=== PATIENT | female | born 1955 | race Caucasian/White ===

== ENCOUNTER → 2017-01-09 | Day surgery (SDC) | payer OTHER ==
[2016-12-31 13:38] VITALS: Ht 158.8 cm; Wt 82.7 kg
[2017-01-02 10:36] LABS: BASO % 0.2 %; BASO ABS # 0.01 K/uL (0-0.2); COMPLETE YES; EOS % 0.9 %; HEMATOCRIT 44.6 % (37-47); IG% 0.2 %; LYMPH % 32.6 %; LYMPH ABS # 1.83 K/uL (1.2-3.4); MEAN CELL VOLUME 90.5 fL (80-100); MEAN CORPUSCULAR HEMOGLOBIN 29.8 pg (25-34); MEAN PLATELET VOLUME 11.2 fL (7.4-10.4); NEUT % 60.1 %; PLATELET COUNT 234 K/uL (130-400); RED BLOOD COUNT 4.93 M/uL (4.2-5.4); WHITE BLOOD COUNT 5.62 K/uL (4.8-10.8)
[2017-01-02 11:00] LABS: BUN/CREATININE RATIO 16.5 (10-20); CALCIUM 9.1 mg/dl (8.5-10.1); CREATININE 0.66 mg/dl (0.60-1.20); POTASSIUM 4.1 mmol/L (3.5-5.1)
[~2017-01-09] VITALS: Ht 158.8 cm; Wt 82.7 kg
[~2017-01-09] MED LIST: ATROPINE SULFATE 0.1 MG/ML 5ML SYR IV PRN; CEFAZOLIN 2000 MG/60 ML D5W IV SCH; DICL-201 PO; EpHEDrine SULFATE INJ 50 MG/ML AMP IV PRN; EpINEphrine INJ 1MG/ML AMP 1 MG/ML AMP ONE; HYDR-5688 PO; HYDROCODONE/ACETAMOPHEN 5/325MG TAB PO PRN; KETOROLAC TROMETHAMINE 30 MG/ML VIAL ONE; LACTATED RINGER'S 1000ML 1,000 ML IV SCH; LEVO25TA5 PO; ONDANSETRON INJ 2 MG/ML 2 ML VIAL IV PRN; ROPIVACAINE 0.5% 5 MG/ML 30 ML VIAL ONE; SODIUM CHLORIDE 0.9% 1000ML 1,000 ML IV SCH; TRAM-10 PO; ZOLP5TAB PO
--- NOTE | 2017-01-09 06:56 | History & Physical Bridge - [place] ---
H&P Re-Evaluation Bridge Note: I have examined the patient, reviewed the History & Physical and in the interval since the performance of the History & Physical I have noted the following changes of clinical significance: No changes noted
--- NOTE | 2017-01-09 08:37 | Discharge Instructions-SurgCtr ---
Discharge Instructions Visit Reason for Visit: Right Knee Pain, Tear Of Lateral Meniscus Of Knee Discharge Discharge Diagnosis / Problem: right knee lateral meniscus tear Discharge Goals Goal(s): Decrease discomfort, Therapeutic intervention Activity Recommendations Activity Limitations: per Instructions/Follow-up section Weightbearing Status: Right weightbearing (as tolerated) Anesthesia . Post Anesthesia Instructions: If you have had General Anesthesia or IV Sedation: * Do not drive today. * Resume driving when surgeon permits. * Do not make important decisions or sign legal documents today. * Call surgeon for: 1. Temperature elevations greater than 101 degrees F. 2. Uncontrollable pain. 3. Excessive bleeding. 4. Persistent nausea and vomiting. 5. Medication intolerance (nausea, vomiting or rash). * For nausea and vomiting use only clear liquids such as: tea, soda, bouillon until nausea subsides, then gradually increase diet as tolerated. * If you have any concerns or questions, call your surgeon's office. If physician is unavailable and it is an emergency, call 911 or go to the nearest emergency room. . Instructions / Follow-Up Instructions / Follow-Up MEDICATIONS: * Resume previous medications unless instructed otherwise by your surgeon. * Always take pain medication on a full stomach or with food to avoid upset stomach. * Do not drink alcohol or drive while taking narcotics. * Ibuprofen or Tylenol may be taken if narcotic not needed. SPECIAL CARE INSTRUCTIONS: __ None _x_ Keep extremity elevated and iced x 48 hours; apply ice 20-30 minutes 8-10 times/day. May remove at night. __ Crutches __ May discard when able __ Brace/Post-op shoe __ 24 hrs/day __ Remove at night _x_ Dressing __ Maintain until seen in office, may shower with plastic over site _x_ Remove dressings in 48 hours and then may shower _x_ Cover incisions with band-aids after showering __ Do not remove steri-strips Call physician if chills or temperature rises above 102 degrees or pain unrelieved by prescribed pain medications. Office [phone] follow up in 2 weeks Diet Recommendations Home Diet: resume previous diet Procedures Procedures Performed: Right Knee Arthroscopy, Partial Lateral Meniscectomy, Chondroplasty Pending Studies Studies pending at discharge: no Medical Emergencies . Who to Call and When: Medical Emergencies: If at any time you feel your situation is an emergency, please call 911 immediately. . Non-Emergent Contact Non-Emergency issues call your: Primary Care Provider, Surgeon . . "Provider Documentation" section prepared by Elton Patel.
[2017-01-09] MEDS: FENTANYL CITRATE INJ 50 MCG/1 ML 2 ML VIAL ONE ×2 (08:49→08:51)
[2017-01-09] MEDS: FENTANYL CITRATE INJ 50 MCG/1 ML 2 ML VIAL IV PRN ×4 (08:51→09:06)
--- NOTE | 2017-01-09 09:07 | OPERATIVE REPORT ---
DATE OF OPERATION: 01/09/2017 PREOPERATIVE DIAGNOSIS: Lateral meniscal tear of the right knee. 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 PROCEDURE: Right knee diagnostic arthroscopy with partial lateral meniscectomy and chondroplasty. SURGEON: Dr. Eladio Santamaria. PRINT LINE OPERATOR: Arian Patel PA-C, whose assistance was necessary for positioning the leg and helping with instrumentation. ANESTHESIA: General. COMPLICATIONS: None. CONDITION: Stable to PACU. INDICATIONS: Andrade is a pleasant 61-year-old female who presented to my office with significant right knee pain. All of her pain was located laterally. MRI and clinical examination were diagnostic for lateral meniscal tear. After failing conservative treatment, she elected to undergo arthroscopy. OPERATION AND FINDINGS: On 01/09/2017 she arrived at [facility] for the above procedure. She was seen in the preoperative holding area and the operative extremity was identified and signed. She was given a preoperative antibiotic, taken back to the operating room, laid on the table in supine position and put under general anesthesia. The right knee was then prepped and draped in sterile fashion. Time-out was done and the patient and operative extremity was properly identified. A scope was introduced in the lateral parapatellar portal. Diagnostic arthroscopy showed grade 3 chondral changes within the patellofemoral joint. The scope was brought into the medial compartment. A medial parapatellar portal was made under direct visualization. There was no cartilage damage to the medial compartment. The medial meniscus was intact. The scope was brought into the trochlea. The ACL was intact. The scope was brought into the lateral compartment. There was no arthritic changes, but there was tearing of the mid portion of the lateral meniscus. A shaver was used to remove the unstable portions of the meniscus and taken back to stable margins. The knee was then brought into full extension. A chondroplasty was done of the patellofemoral joint. Multiple pictures were taken. The scope was placed in the contralateral portal and a repeat diagnostic arthroscopy showed no additional pathology. Arthroscopic instruments were removed from the knee. Portal sites were closed with 3-0 nylon. The knee was injected with 30 mL of Neuropen with epinephrine and Toradol. She was then given a soft compressive dressing, extubated, transferred to a litter and taken to the postanesthesia care unit in stable condition. She tolerated the procedure well. I attest to the content of the Intraoperative Record and any orders documented therein. Any exceptio ns are noted below.
[2017-01-09 09:22] VITALS: TEMP 36.8
[2017-01-09 09:55] VITALS: BP 127/80; PULSE 95; O2SAT 94
--- NOTE | 2017-01-09 09:58 | Anesthesia Progress Nt - [facility] ---
Anesthesia Post Op Note Date & Time Jan 09, 2017 at 09:58 Vital Signs Pain Intensity: 4 Vital Signs Past 12 Hours Date Time Temp Pulse Resp B/P Pulse Ox O2 Delivery O2 Flow Rate FiO2 01/09/17 09:22 36.8 91 16 135/79 95 Room Air 01/09/17 09:14 88 12 01/09/17 09:14 89 12 94 01/09/17 09:14 88 12 01/09/17 09:14 89 12 94 01/09/17 09:13 118/61 01/09/17 09:12 37.5 88 16 118/61 94 Room Air 01/09/17 09:11 90 17 01/09/17 09:11 91 17 95 01/09/17 09:08 119/65 01/09/17 09:06 86 16 01/09/17 09:06 87 16 100 01/09/17 09:03 120/66 01/09/17 09:01 90 16 01/09/17 09:01 89 16 99 01/09/17 08:58 121/67 01/09/17 08:56 86 14 99 01/09/17 08:56 86 14 01/09/17 08:53 123/72 01/09/17 08:51 88 23 01/09/17 08:51 88 23 99 01/09/17 08:48 130/67 01/09/17 08:46 84 18 100 01/09/17 08:46 85 18 01/09/17 08:43 122/60 01/09/17 08:41 83 28 01/09/17 08:41 84 28 99 01/09/17 08:39 128/62 01/09/17 08:36 78 12 100 01/09/17 08:36 76 12 01/09/17 08:36 37.2 83 16 113/69 99 Diffusion Mask 6 01/09/17 07:17 36.7 89 16 139/105 96 Room Air Notes Mental Status: alert / awake / arousable, participated in evaluation Pt Amnestic to Procedure: Yes Nausea / Vomiting: adequately controlled Pain: adequately controlled Airway Patency, RR, SpO2: stable & adequate BP & HR: stable & adequate Hydration State: stable & adequate Anesthetic Complications: no major complications apparent
--- NOTE | 2017-01-09 10:29 | [facility] Post Operative Brief Note ---
Immediate Operative Summary Operative Date Jan 09, 2017. Pre-Operative Diagnosis Right Knee Lateral Meniscus Tear Post-Operative Diagnosis Same Procedure(s) Performed Right Knee Arthroscopy, Partial Lateral Meniscectomy, Chondroplasty Surgeon Dr. Santamaria Senior Electronics Technician Surgeon(s) Gail Patel PA-C Estimated Blood Loss 0 mL Findings as above Specimens None Complication(s) None Disposition Recovery Room / PACU
== END | disposition home or self-care (01) ==
LOC: X.SURG 06:52
PROVIDERS: ATTEND Orthopaedic Surgery
DX: M23.261 Derangement of other lateral meniscus due to old tear or injury, right knee (principal); M22.41 Chondromalacia patellae, right knee; I34.1 Nonrheumatic mitral (valve) prolapse; Z90.710 Acquired absence of both cervix and uterus; Z82.49 Family history of ischemic heart disease and other diseases of the circulatory system

== ENCOUNTER 2018-01-27 13:41 | Inpatient (IN) | payer OTHER ==
[~2018-01-27] VITALS: Ht 157.5 cm; Wt 86.0 kg
[~2018-01-27 13:41] MED LIST changes: -ATROPINE SULFATE 0.1 MG/ML 5ML SYR IV PRN; -CEFAZOLIN 2000 MG/60 ML D5W IV SCH; -EpHEDrine SULFATE INJ 50 MG/ML AMP IV PRN; -EpINEphrine INJ 1MG/ML AMP 1 MG/ML AMP ONE; -HYDR-5688 PO; -HYDROCODONE/ACETAMOPHEN 5/325MG TAB PO PRN; -KETOROLAC TROMETHAMINE 30 MG/ML VIAL ONE; -LACTATED RINGER'S 1000ML 1,000 ML IV SCH; -ONDANSETRON INJ 2 MG/ML 2 ML VIAL IV PRN; -ROPIVACAINE 0.5% 5 MG/ML 30 ML VIAL ONE; -SODIUM CHLORIDE 0.9% 1000ML 1,000 ML IV SCH; -TRAM-10 PO
[2018-01-27] MEDS ORDERED: MoRPHine SULFATE 10 MG/ML CARP/VIAL IV STA (14:01)
[2018-01-27] MEDS ORDERED: ONDANSETRON INJ 2 MG/ML 2 ML VIAL IV STA (14:01)
[2018-01-27] MEDS ORDERED: SODIUM CHLORIDE 0.9% 1000ML 1,000 ML IV STA (14:01)
[2018-01-27] MEDS ORDERED: PANT40TA PO (14:05)
[2018-01-27] MEDS ORDERED: RANI300T2 PO (14:05)
--- NOTE | 2018-01-27 14:14 | EMERGENCY ROOM VISIT NOTE ---
History Report prepared by Franco: Rodrigo Acosta Under the Supervision of: Dr. Cricket Villasenor D.O. First contact with patient: 13:49 Chief Complaint: ABDOMINAL PAIN Stated Complaint: PAIN IN STOMACH Nursing Triage Summary: pt to the ED with 5 hrs of epigastric pain with vomitting several times and it was bitter pt was seen at pmd yesterday and told it was reflux pt tearful in triage History of Present Illness The patient is a 62 year old female who presents to the Emergency Room with complaints of worsening abdominal pain and "belching" that has been present since Friday, 4 days prior to this visit. The patient states that she has been "belching" nearly constantly for the past 4 days and has had pain in her upper abdomen that onset at the same time. She describes the pain as constant and sharp, and notes that it radiates through her abdomen into her back. Nothing seems to worsen/improve the pain. She visited her primary care physician yesterday who prescribed medication for acid reflux. She just started this medication today, but her abdominal pain has continued to worsen so she brought herself into the department. The patient did experience one vomiting episode just prior to arrival, and has had roughly 5 bouts of diarrhea. Her last bowel movement was at 1100 today, 3 hours ago. She denies any other headache, change in vision, fevers, chest pain, shortness of breath, pain with urination, and melena. 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 A total of 10 systems reviewed and were otherwise negative. Past Medical & Surgical Medical Problems: (1) Cholelithiasis (2) Mitral valve prolapse Surgical Problems: (1) Arthropathy of left shoulder (2) History of bladder repair surgery (3) History of herniorrhaphy (4) History of hysterectomy (5) History of tonsillectomy and adenoidectomy (6) S/P laminectomy with spinal fusion Family History omitted secondary to age. Social History Smoking Status: Never Smoker Drug Use: none Occupation Status: retired Current/Historical Medications Scheduled Pantoprazole (Protonix), 40 MG PO DAILY Ranitidine (Zantac), 300 MG PO HS Scheduled PRN Zolpidem Tartrate (Ambien), 5 MG PO HS PRN for Insomnia Allergies Coded Allergies: Sulfa Antibiotics (Verified Allergy, Unknown, RASH, 01/09/17) Physical Exam Vital Signs Date Time Temp Pulse Resp B/P (MAP) Pulse Ox O2 Delivery O2 Flow Rate FiO2 01/27/18 17:46 76 16 99 01/27/18 17:31 108/74 01/27/18 17:16 76 15 99 01/27/18 17:06 81 20 139/65 99 Room Air 01/27/18 17:01 139/65 01/27/18 16:46 81 20 99 01/27/18 16:41 79 20 100 01/27/18 16:40 134/78 01/27/18 16:31 134/78 01/27/18 16:22 128/72 01/27/18 15:01 129/77 01/27/18 14:41 68 15 98 01/27/18 14:31 127/73 01/27/18 14:21 80 22 137/83 97 01/27/18 14:20 137/83 01/27/18 13:44 36.5 98 22 152/98 99 Physical Exam GENERAL: Sitting up in bed holding her upper abdomen, alert, well appearing, well nourished, no distress, non-toxic EYE EXAM: normal conjunctiva. OROPHARYNX: no exudate, no erythema, lips, buccal mucosa, and tongue normal and mucous membranes are moist NECK: supple, no nuchal rigidity, no adenopathy, non-tender LUNGS: Clear to auscultation. Normal chest wall mechanics HEART: no murmurs, S1 normal and S2 normal ABDOMEN: abdomen soft, with tenderness to palpation in the epigastric region and right upper quadrant, normo-active bowel sounds, no masses, no rebound or guarding. BACK: Back is symmetrical on inspection and there is no deformity, no midline tenderness, no CVA tenderness. SKIN: no rashes and no bruising UPPER EXTREMITIES: upper extremities are grossly normal. LOWER EXTREMITIES: No pitting edema. NEURO EXAM: Normal sensorium, cranial nerves II-XII grossly intact, normal speech, no gross weakness of arms, no gross weakness of legs. Medical Decision & Procedures ER Provider Diagnostic Interpretation: Radiology results as stated below per my review and the radiologist's interpretation: ABDOMINAL ULTRASOUND, RIGHT UPPER QUADRANT HISTORY: Tenderness to palpation within the right upper quadrant. COMPARISON: CT of the abdomen and pelvis performed earlier today. FINDINGS: There is no biliary ductal dilatation. The gallbladder is mildly distended. There is trace pericholecystic fluid. A nonmobile stone within the gallbladder neck is noted. No sonographic Negrete sign was reported. The pancreas is unremarkable by sonography. There is no right hydronephrosis. There may be fatty infiltration of the liver. IMPRESSION: 1. Cholelithiasis, including a nonmobile stone within the gallbladder neck. Mild gallbladder distention and trace pericholecystic fluid. No gallbladder wall thickening. No sonographic Negrete sign. If clinical suspicion for acute cholecystitis, a hepatobiliary scan could be obtained. 2. No biliary ductal dilatation. 3. Fatty liver. Electronically signed by: Lewis Rosas M.D. 01/27/2018 4:13 PM Dictated Date/Time: 01/27/2018 4:[address] ABD/PELVIS IV CONTRAST ONLY CLINICAL HISTORY: Epigastric abdominal pain COMPARISON STUDY: None. TECHNIQUE: Following the IV administration of 94 mL of Optiray-320, CT scan of the abdomen and pelvis was performed from the lung bases to the proximal femurs. Images are reviewed in the axial, sagittal, and coronal planes. IV contrast was administered without complication. A dose lowering technique was utilized adhering to the principles of ALARA. CT DOSE: 579.91 mGy.cm FINDINGS: Lower chest: There are minor dependent atelectatic changes. Liver: There is mild hepatic steatosis. No focal masses are visualized. Gallbladder: The gallbladder is minimally distended. There is no gallbladder wall thickening. There is no ductal dilatation. If there is clinical concern the presence of acute gallbladder disease, a nuclear medicine hepatobiliary study could be obtained in follow-up. Spleen: Normal in size and attenuation. Pancreas: Unremarkable. Adrenal glands: Unremarkable. Kidneys: There is symmetric renal cortical enhancement. The kidneys are normal in size without hydronephrosis. Bowel: There are no transition zones indicate bowel obstruction. There is no acute diverticulitis. There is no evidence of acute appendicitis. Peritoneum: There is no intraperitoneal free air or abdominal ascites. There is a tiny fat-containing umbilical hernia. Vasculature: The abdominal aorta is normal in course and caliber. Adenopathy: None. Pelvic viscera: The uterus appears surgically absent Skeletal structures: Postsurgical changes are present within the lumbar spine IMPRESSION: 1. No evidence of bowel obstruction. No evidence of free air 2. No evidence of acute diverticulitis. No evidence of acute appendicitis 3. Mild gallbladder distention Electronically signed by: Salvatore Montoya M.D. 01/27/2018 3:23 PM Dictated Date/Time: 01/27/2018 3:18 PM Laboratory Results 01/27/18 14:09 Red Blood Count 5.05, Mean Corpuscular Volume 90.3, Mean Corpuscular Hemoglobin 30.7, Mean Corpuscular Hemoglobin Concent 34.0, Mean Platelet Volume 10.5, Neutrophils (%) (Auto) 76.2, Lymphocytes (%) (Auto) 18.4, Monocytes (%) (Auto) 4.9, Eosinophils (%) (Auto) 0.1, Basophils (%) (Auto) 0.2, Neutrophils # (Auto) 8.10, Lymphocytes # (Auto) 1.95, Monocytes # (Auto) 0.52, Eosinophils # (Auto) 0.01, Basophils # (Auto) 0.02 01/27/18 14:09 Test 01/27/18 14:09 White Blood Count 10.62 K/uL (4.8-10.8) Red Blood Count 5.05 M/uL (4.2-5.4) Hemoglobin 15.5 g/dL (12.0-16.0) Hematocrit 45.6 % (37-47) Mean Corpuscular Volume 90.3 fL (80-100) Mean Corpuscular Hemoglobin 30.7 pg (25-34) Mean Corpuscular Hemoglobin Concent 34.0 g/dl (32-36) Platelet Count 238 K/uL (130-400) Mean Platelet Volume 10.5 fL (7.4-10.4) Neutrophils (%) (Auto) 76.2 % Lymphocytes (%) (Auto) 18.4 % Monocytes (%) (Auto) 4.9 % Eosinophils (%) (Auto) 0.1 % Basophils (%) (Auto) 0.2 % Neutrophils # (Auto) 8.10 K/uL (1.4-6.5) Lymphocytes # (Auto) 1.95 K/uL (1.2-3.4) Monocytes # (Auto) 0.52 K/uL (0.11-0.59) Eosinophils # (Auto) 0.01 K/uL (0-0.5) Basophils # (Auto) 0.02 K/uL (0-0.2) RDW Standard Deviation 42.3 fL (36.4-46.3) RDW Coefficient of Variation 12.9 % (11.5-14.5) Immature Granulocyte % (Auto) 0.2 % Immature Granulocyte # (Auto) 0.02 K/uL (0.00-0.02) Anion Gap 9.0 mmol/L (3-11) Est Creatinine Clear Calc Drug Dose 78.1 ml/min Estimated GFR () 97.4 Estimated GFR (Non- 84.1 BUN/Creatinine Ratio 12.3 (10-20) Calcium Level 9.1 mg/dl (8.5-10.1) Total Bilirubin 0.2 mg/dl (0.2-1) Direct Bilirubin mg/dl (0-0.2) Aspartate Amino Transf (AST/SGOT) 17 U/L (15-37) Alanine Aminotransferase (ALT/SGPT) 20 U/L (12-78) Alkaline Phosphatase 97 U/L (45-117) Total Protein 7.8 gm/dl (6.4-8.2) Albumin 3.8 gm/dl (3.4-5.0) Lipase 219 U/L (73-393) Chemistry Specimen Hemolysis Laboratory results per my review. Medications Administered Medications (Trade) Dose Ordered Sig/Marbin Route Start Time Stop Time Status Last Admin Dose Admin Sodium Chloride 1,000 ml @ 999 mls/hr Q1H1M STAT IV 01/27/18 14:01 01/27/18 15:01 DC 01/27/18 14:15 999 MLS/HR Morphine Sulfate (MoRPHine SULFATE INJ) 6 mg NOW STAT IV 01/27/18 14:01 01/27/18 14:02 DC 01/27/18 14:18 6 MG Ondansetron HCl (Zofran Inj) 4 mg NOW STAT IV 01/27/18 14:01 01/27/18 14:02 DC 01/27/18 14:17 4 MG Piperacillin Sod/ Tazobactam Sod (Zosyn Iv) 4.5 gm NOW STAT IV 01/27/18 16:24 2/27/18 16:25 DC 01/27/18 16:48 4.5 GM ED Course ED COURSE: Vital signs were reviewed and showed hypertensive vitals situationally. The patients medical record was reviewed The above diagnostic studies were performed and reviewed. ED treatments and interventions as stated above. 1357: The patient was evaluated in room B4B. A complete history and physical examination was performed. 1401: Ordered Zofran 4 mg IV, Morphine Sulfate 6 mg IV, Sodium Chloride 1000 mL @ 999 mL/hr IV. 1624: Ordered Zosyn 4.5 gm IV. 1625: I discussed the case with [facility] General Surgery at this time. She suggests admitting the patient to medicine. 1641: I discussed the case with Dr. Julia Kelley Hospitalist. He will evaluate the patient for further treatment. 1645: Upon reevaluation, the patient is resting in bed.I discussed my findings with the patient and she understands and agrees with the treatment plan. Based on the patients age, coexisting illnesses, exam and lab findings the decision to treat as an inpatient was made. The patient remained stable while under my care. The patient will be evaluated for further management. Medical Decision Differential diagnoses includes but is not limited to gastritis, peptic ulcer disease, GERD, gallbladder disease, pancreatitis, small bowel obstruction, acute coronary syndrome, pericarditis, ischemic bowel, irritable bowel disease, irritable bowel syndrome, appendicitis, diverticulitis, malignancy, hernia, urinary tract infection, torsion, perforation, trauma, infectious. Patient is a 60-year-old female who presents to the ER for epigastric abdominal pain which has been present since yesterday. She does admit to vomiting. Pain has gotten significantly worse today. On exam she is tender in the epigastric/ right upper quadrant. No chest pain or shortness of breath. Labs and CT were obtained and were remarkable for a distended gallbladder along with a stone within the neck. There is also a small amount of pericholecystic fluid. CBC along with BMP, LFTs, bilirubin and lipase was unremarkable. Patient was given IV narcotics. She was significantly more comfortable. Discussed with general surgery who recommended discussing with internal medicine. I did give patient IV antibiotics and she was admitted for cholecystitis. Medication Reconcilliation Current Medication List: was personally reviewed by me Blood Pressure Screening Patient's blood pressure: Normal blood pressure Consults Time Called: 1635 Consulting Physician: Dr. Julia Kelley Hospitalist Returned Call: 1641 I discussed the case with Dr. Julia Kelley Hospitalist. He will evaluate the patient for further treatment. Additional Consults: Time Called: 1623 Consulted Physician: Jia Flores General Surgery Returned Call: 1625 Additional Comments: I discussed the case with [facility] Surgery at this time. She suggests admitting the patient to medicine. Impression Primary Impression: Cholecystitis Additional Impression: Cholelithiasis Scribe Attestation The scribe's documentation has been prepared under my direction and personally reviewed by me in its entirety. I confirm that the note above accurately reflects all work, treatment, procedures, and medical decision making performed by me. Departure Information Dispostion Being Evaluated By Hospitalist Referrals Guille Gallagher III, M.D. (PCP) Patient Instructions My [facility] Problem Qualifiers Additional Impression: Cholelithiasis Cholelithiasis location: other site Biliary obstruction: without biliary obstruction Qualified Codes: K80.80 - Other cholelithiasis without obstruction
[2018-01-27] MEDS ORDERED: OPTIRAY 320 IV PRN (14:15)
[2018-01-27 14:28] LABS: BASO % 0.2 %; BASO ABS # 0.02 K/uL (0-0.2); EOS % 0.1 %; EOS ABS # 0.01 K/uL (0-0.5); HEMATOCRIT 45.6 % (37-47); HEMOGLOBIN 15.5 g/dL (12.0-16.0); IG# 0.02 K/uL (0.00-0.02); LYMPH % 18.4 %; LYMPH ABS # 1.95 K/uL (1.2-3.4); MEAN CELL VOLUME 90.3 fL (80-100); MEAN CORPUSCULAR HEMOGLOBIN 30.7 pg (25-34); MEAN PLATELET VOLUME 10.5 fL (7.4-10.4); MONO % 4.9 %; MONO ABS # 0.52 K/uL (0.11-0.59); NEUT % 76.2 %; PLATELET COUNT 238 K/uL (130-400); RED CELL DISTRIBUTION WIDTH CV 12.9 % (11.5-14.5); RED CELL DISTRIBUTION WIDTH SD 42.3 fL (36.4-46.3); WHITE BLOOD COUNT 10.62 K/uL (4.8-10.8)
[2018-01-27 14:54] LABS: ALBUMIN 3.8 gm/dl (3.4-5.0); ALKALINE PHOSPHATASE 97 U/L (45-117); ALT/SGPT 20 U/L (12-78); AST/SGOT 17 U/L (15-37); BLOOD UREA NITROGEN 9 mg/dl (7-18); CALCIUM 9.1 mg/dl (8.5-10.1); CARBON DIOXIDE 24 mmol/L (21-32); CREATININE 0.76 mg/dl (0.60-1.20); GLUCOSE 109 mg/dl (70-99); LIPASE 219 U/L (73-393); POTASSIUM 3.8 mmol/L (3.5-5.1); SODIUM 139 mmol/L (136-145); TOTAL PROTEIN 7.8 gm/dl (6.4-8.2)
--- NOTE | 2018-01-27 15:24 | DIAGNOSTIC IMAGING REPORT ---
CT ABD/PELVIS IV CONTRAST ONLY CLINICAL HISTORY: Epigastric abdominal pain COMPARISON STUDY: None. TECHNIQUE: Following the IV administration of 94 mL of Optiray-320, CT scan of the abdomen and pelvis was performed from the lung bases to the proximal femurs. Images are reviewed in the axial, sagittal, and coronal planes. IV contrast was administered without complication. A dose lowering technique was utilized adhering to the principles of ALARA. CT DOSE: 579.91 mGy.cm FINDINGS: Lower chest: There are minor dependent atelectatic changes. Liver: There is mild hepatic steatosis. No focal masses are visualized. Gallbladder: The gallbladder is minimally distended. There is no gallbladder wall thickening. There is no ductal dilatation. If there is clinical concern the presence of acute gallbladder disease, a nuclear medicine hepatobiliary study could be obtained in follow-up. Spleen: Normal in size and attenuation. Pancreas: Unremarkable. Adrenal glands: Unremarkable. Kidneys: There is symmetric renal cortical enhancement. The kidneys are normal in size without hydronephrosis. Bowel: There are no transition zones indicate bowel obstruction. There is no acute diverticulitis. There is no evidence of acute appendicitis. Peritoneum: There is no intraperitoneal free air or abdominal ascites. There is a tiny fat-containing umbilical hernia. Vasculature: The abdominal aorta is normal in course and caliber. Adenopathy: None. Pelvic viscera: The uterus appears surgically absent Skeletal structures: Postsurgical changes are present within the lumbar spine IMPRESSION: 1. No evidence of bowel obstruction. No evidence of free air 2. No evidence of acute diverticulitis. No evidence of acute appendicitis 3. Mild gallbladder distention Electronically signed by: Salvatore Montoya M.D. 01/27/2018 3:23 PM Dictated Date/Time: 01/27/2018 3:18 PM
--- NOTE | 2018-01-27 16:14 | DIAGNOSTIC IMAGING REPORT ---
ABDOMINAL ULTRASOUND, RIGHT UPPER QUADRANT HISTORY: Tenderness to palpation within the right upper quadrant. COMPARISON: CT of the abdomen and pelvis performed earlier today. FINDINGS: There is no biliary ductal dilatation. The gallbladder is mildly distended. There is trace pericholecystic fluid. A nonmobile stone within the gallbladder neck is noted. No sonographic Negrete sign was reported. The pancreas is unremarkable by sonography. There is no right hydronephrosis. There may be fatty infiltration of the liver. IMPRESSION: 1. Cholelithiasis, including a nonmobile stone within the gallbladder neck. Mild gallbladder distention and trace pericholecystic fluid. No gallbladder wall thickening. No sonographic Negrete sign. If clinical suspicion for acute cholecystitis, a hepatobiliary scan could be obtained. 2. No biliary ductal dilatation. 3. Fatty liver. Electronically signed by: Lewis Rosas M.D. 01/27/2018 4:13 PM Dictated Date/Time: 01/27/2018 4:11 PM
[2018-01-27] MEDS ORDERED: PIPERACILLIN/TAZOBACTAM 4.5 GM/100ML D5W IV STA (16:24)
--- NOTE | 2018-01-27 17:54 | History and Physical ---
History & Physical Date & Time of Service: Jan 27, 2018 at 17:54 . Chief Complaint: Abdominal pain . Primary Care Physician: Guille Gallagher III, M.D. . History of Present Illness Source: patient, clinic records, hospital records 62-year-old female followed by Dr. Gallagher. She enjoys relatively good health except for problems noted below. Experiencing GI upset for the past few days. Started on pantoprazole and ranitidine yesterday without improvement. This morning she developed severe epigastric pain after eating breakfast that included eggs. Pain was rated as 10 out of 10. It was associated with nausea and vomiting No hematemesis, melena, hematochezia. Noticed some chills, but no fever. Tried simethicone without relief. . Past Medical/Surgical History Medical Problems: (1) Lumbar spinal stenosis Status: Chronic (2) Mitral valve prolapse Status: Chronic Surgical Problems: (1) Arthropathy of left shoulder Status: Chronic (2) History of bladder repair surgery Status: Resolved (3) History of herniorrhaphy Status: Resolved (4) History of hysterectomy Status: Resolved (5) History of repair of hiatal hernia Status: Chronic (6) History of tonsillectomy and adenoidectomy Status: Resolved (7) S/P laminectomy with spinal fusion Permanent Comment: L3-5 Status: Resolved (8) Status post hysterectomy Status: Chronic (9) Status post lumbar surgery Status: Chronic (10) Status post tonsillectomy Status: Chronic . Family History Mother- diverticulitis Father- myocardial infarction Brother-myocardial infarction Sister-Crohn's disease . Social History Smoking Status: Never Smoker Alcohol Use: none Drug Use: none Occupational Status: retired Immunizations History of Influenza Vaccine: Yes History of Tetanus Vaccine?: Unknown History of Pneumococcal: Yes Pneumococcal Date: Jul 01, 2009 History of Hepatitis B Vaccine: Unknown Multi-Drug Resistant Organisms History of MDRO: No Allergies Coded Allergies: Sulfa Antibiotics (Verified Allergy, Unknown, RASH, 01/09/17) Home Medications Scheduled Pantoprazole (Protonix), 40 MG PO DAILY Ranitidine (Zantac), 300 MG PO HS Scheduled PRN Zolpidem Tartrate (Ambien), 5 MG PO HS PRN for Insomnia Review of Systems Constitutional: No fever, No weight loss Eyes: No worsening of vision, No diplopia ENT: No nasal symptoms, No sore throat Respiratory: No cough, No shortness of breath Cardiovascular: No chest pain, No edema, No palpitations Abdomen: + problem reported (As noted above in HPI) Musculoskeletal: + joint pain (Chronic back pain) Genitourinary - Female: No dysuria, No hematuria Neurologic: + problem reported (No headaches) Endocrine: No excessive thirst, No excessive urination Hematologic / Lymphatic: + abnormal bleeding/bruising (Bruises easily), No swollen lymph nodes Integumentary: No rash, No new/changing skin lesions Physical Exam Vital Signs Date Time Temp Pulse Resp B/P (MAP) Pulse Ox O2 Delivery O2 Flow Rate FiO2 01/27/18 17:46 76 16 99 01/27/18 17:31 108/74 01/27/18 17:16 76 15 99 01/27/18 17:06 81 20 139/65 99 Room Air 01/27/18 17:01 139/65 01/27/18 16:46 81 20 99 01/27/18 16:41 79 20 100 01/27/18 16:40 134/78 01/27/18 16:31 134/78 01/27/18 16:22 128/72 01/27/18 15:01 129/77 01/27/18 14:41 68 15 98 01/27/18 14:31 127/73 01/27/18 14:21 80 22 137/83 97 01/27/18 14:20 137/83 01/27/18 13:44 36.5 98 22 152/98 99 Constitutional- vital signs as noted above; well-developed well-nourished ; no distress Eyes- PERRL; sclerae anicteric; conjunctivae clear ENT-external examination of ears and nose are unremarkable; hearing grossly intact; oropharynx clear Neck-no masses; trachea midline; no thyromegaly or thyroid masses Lungs- clear to auscultation and percussion; no respiratory distress Cardiovascular- RRR; no murmur; no gallop; no JVD; no pretibial edema; pedal pulses intact Abdomen-quiet bowel sounds; nondistended; right upper quadrant tenderness with guarding, but no rebound; no palpable masses or hepatosplenomegaly Extremities- no cyanosis; no calf tenderness Musculoskeletal- neck supple; examination extremities unremarkable Neuro- alert, oriented; PERRL, EOMI, no facial palsy; no dysarthria; motor strength upper and lower extremities grossly intact Psychiatric-normal affect Skin- warm & dry . Diagnostics Laboratory Results Results Past 24 Hours Test 01/27/18 14:09 Range/Units White Blood Count 10.62 4.8-10.8 K/uL Red Blood Count 5.05 4.2-5.4 M/uL Hemoglobin 15.5 12.0-16.0 g/dL Hematocrit 45.6 37-47 % Mean Corpuscular Volume 90.3 80-100 fL Mean Corpuscular Hemoglobin 30.7 25-34 pg Mean Corpuscular Hemoglobin Concent 34.0 32-36 g/dl Platelet Count 238 130-400 K/uL Mean Platelet Volume 10.5 7.4-10.4 fL Neutrophils (%) (Auto) 76.2 % Lymphocytes (%) (Auto) 18.4 % Monocytes (%) (Auto) 4.9 % Eosinophils (%) (Auto) 0.1 % Basophils (%) (Auto) 0.2 % Neutrophils # (Auto) 8.10 1.4-6.5 K/uL Lymphocytes # (Auto) 1.95 1.2-3.4 K/uL Monocytes # (Auto) 0.52 0.11-0.59 K/uL Eosinophils # (Auto) 0.01 0-0.5 K/uL Basophils # (Auto) 0.02 0-0.2 K/uL RDW Standard Deviation 42.3 36.4-46.3 fL RDW Coefficient of Variation 12.9 11.5-14.5 % Immature Granulocyte % (Auto) 0.2 % Immature Granulocyte # (Auto) 0.02 0.00-0.02 K/uL Sodium Level 139 136-145 mmol/L Potassium Level 3.8 3.5-5.1 mmol/L Chloride Level 106 98-107 mmol/L Carbon Dioxide Level 24 21-32 mmol/L Anion Gap 9.0 3-11 mmol/L Blood Urea Nitrogen 9 7-18 mg/dl Creatinine 0.76 0.60-1.20 mg/dl Est Creatinine Clear Calc Drug Dose 78.1 ml/min Estimated GFR () 97.4 Estimated GFR (Non- 84.1 BUN/Creatinine Ratio 12.3 10-20 Random Glucose 109 70-99 mg/dl Calcium Level 9.1 8.5-10.1 mg/dl Total Bilirubin 0.2 0.2-1 mg/dl Direct Bilirubin 0-0.2 mg/dl Aspartate Amino Transf (AST/SGOT) 17 15-37 U/L Alanine Aminotransferase (ALT/SGPT) 20 12-78 U/L Alkaline Phosphatase 97 45-117 U/L Total Protein 7.8 6.4-8.2 gm/dl Albumin 3.8 3.4-5.0 gm/dl Lipase 219 73-393 U/L Chemistry Specimen Hemolysis Diagnostic Radiology CT ABDOMEN & PELVIS: IMPRESSION: 1. No evidence of bowel obstruction. No evidence of free air 2. No evidence of acute diverticulitis. No evidence of acute appendicitis 3. Mild gallbladder distention Electronically signed by: Salvatore Montoya M.D. 01/27/2018 3:23 PM Dictated Date/Time: 01/27/2018 3:18 PM US RUQ IMPRESSION: 1. Cholelithiasis, including a nonmobile stone within the gallbladder neck. Mild gallbladder distention and trace pericholecystic fluid. No gallbladder wall thickening. No sonographic Negrete sign. If clinical suspicion for acute cholecystitis, a hepatobiliary scan could be obtained. 2. No biliary ductal dilatation. 3. Fatty liver. Electronically signed by: Lewis Rosas M.D. . Impression Assessment and Plan CHOLELITHIASIS / CHOLECYSTITIS Imaging of gallbladder by CT and ultrasound demonstrated cholelithiasis with thickening of gallbladder wall, no apparent choledocholithiasis. LFTs unremarkable. Started on intravenous piperacillin/tazobactam in the ED which will be continued. NPO. Analgesics and antiemetics as needed. Consult General Surgery. ED provider discussed case with surgical team. HISTORY OF HYPOTHYROIDISM Patient has history of hypothyroidism and levothyroxine in the past. She stopped the medication several months ago and indicates that follow-up thyroid testing was unremarkable. Check TSH with morning labs. VTE PROPHYLAXIS No anticoagulants in anticipation of probable surgical intervention. SCDs. Ambulate. DISPOSITION Admit to Med-Surg Unit. Expected discharge to home. Family Medicine follow-up with Dr. Gallagher. . VTE Prophylaxis VTE Risk Assessment Done? Y/N: Yes Risk Level: Moderate Given or contraindicated: SCD's
[2018-01-27 18:30] VITALS: BP 141/98; PULSE 79; TEMP 36.9; O2SAT 97; Ht 157.5 cm; Wt 86.0 kg
[2018-01-27] MEDS ORDERED: HYDROmorphone INJ 1 MG/ML SYR IV PRN (18:30)
[2018-01-27] MEDS: D5W AND LACTATED RINGERS 1,000 ML IV SCH ×2 (18:41→23:59)
[2018-01-27] MEDS: HYDROmorphone INJ 0.5 MG/0.5 ML SYR IV PRN (18:41)
--- NOTE | 2018-01-27 19:57 | Surgery Consultation ---
Consultation Date of Consultation: Jan 27, 2018. Attending Physician: Viviane Santo M.D. History of Present Illness The patient is a 62 year old female who presents to the Emergency Room with complaints of worsening abdominal pain and "belching" that has been present since Friday, 4 days prior to this visit. The patient states that she has been "belching" nearly constantly for the past 4 days and has had pain in her upper abdomen that onset at the same time. She describes the pain as constant and sharp, and notes that it radiates through her abdomen into her back. Nothing seems to worsen/improve the pain. She visited her primary care physician yesterday who prescribed medication for acid reflux. She just started this medication today, but her abdominal pain has continued to worsen so she brought herself into the department. The patient did experience one vomiting episode just prior to arrival, and has had roughly 5 bouts of diarrhea. Her last bowel movement was at 1100 today, 3 hours ago. She denies any other headache, change in vision, fevers, chest pain, shortness of breath, pain with urination, and melena. I saw pt at bedside, I reviewed pt's H/P with pt, pt is still have RUQ pain, with nausea, no vomiting, Past Medical/Surgical History Medical Problems: (1) Cholecystitis Status: Acute Social History Smoking Status: Never Smoker Smokeless Tobacco Use: No Alcohol Use: none Drug Use: none Occupation Status: retired Allergies Coded Allergies: Sulfa Antibiotics (Verified Allergy, Unknown, RASH, 01/09/17) Home Medications Scheduled Pantoprazole (Protonix), 40 MG PO DAILY Ranitidine (Zantac), 300 MG PO HS Scheduled PRN Zolpidem Tartrate (Ambien), 5 MG PO HS PRN for Insomnia Current Inpatient Medications Current Inpatient Medications Medications (Trade) Dose Ordered Sig/Marbin Route Start Time Stop Time Status Last Admin Dose Admin Ioversol (Optiray 320) 100 ml UD PRN IV 01/27/18 14:15 01/31/18 14:14 Ondansetron HCl (Zofran Inj) 4 mg Q6H PRN IV 01/27/18 18:00 02/26/18 17:59 Dextrose/Lactated Ringer's 1,000 ml @ 150 mls/hr Q6H40M IV 01/27/18 18:30 02/26/18 18:29 01/27/18 18:41 150 MLS/HR Hydromorphone HCl (Dilaudid Inj) 0.5 mg Q3H PRN IV 01/27/18 18:30 02/10/18 18:29 01/27/18 18:41 0.5 MG Hydromorphone HCl (Dilaudid Inj) 1 mg Q3H PRN IV 01/27/18 18:30 02/10/18 18:29 Review of Systems Constitutional: No fever, No chills, No sweats, No weight loss, No weakness, No fatigue, No problem reported Eyes: No worsening of vision, No eye pain, No redness, No discharge, No diplopia, No problem reported ENT: No hearing loss, No unusual epistaxis, No nasal symptoms, No sore throat, No tinnitus, No dental problems, No trouble swallowing, No problem reported Respiratory: No cough, No sputum, No wheezing, No shortness of breath, No dyspnea on exertion, No dyspnea at rest, No hemoptysis, No problem reported Cardiovascular: No chest pain, No orthopnea, No PND, No edema, No claudication , No palpitations, No problem reported Abdomen: + pain, + nausea, + vomiting Musculoskeletal: No joint pain, No muscle pain, No swelling, No calf pain, No problem reported Genitourinary - Female: No dysuria, No urinary frequency, No urinary urgency, No urinary incontinence, No urinary retention, No hematuria, No dysmenorrhea, No menorrhagia, No metrorrhagia, No rash, No vaginal bleeding, No vaginal discharge, No vaginal itching, No vulvodynia, No , No problem reported Neurologic: No memory loss, No paralysis, No weakness, No numbness/tingling, No vertigo, No balance problems, No problem reported Psychiatric: No depression symptoms, No anhedonism, No anxiety, No insomnia, No substance abuse, No problem reported Endocrine: No fatigue, No excessive thirst, No excessive urination, No problem reported Hematologic / Lymphatic: No abnormal bleeding/bruising, No clotting problems, No swollen lymph nodes, No night sweats, No problem reported Physical Exam Date Time Temp Pulse Resp B/P (MAP) Pulse Ox O2 Delivery O2 Flow Rate FiO2 01/27/18 18:23 36.5 77 17 136/77 97 01/27/18 18:01 136/77 01/27/18 17:51 77 17 97 01/27/18 17:46 76 16 99 01/27/18 17:31 108/74 01/27/18 17:16 76 15 99 01/27/18 17:06 81 20 139/65 99 Room Air 01/27/18 17:01 139/65 01/27/18 16:46 81 20 99 01/27/18 16:41 79 20 100 01/27/18 16:40 134/78 01/27/18 16:31 134/78 01/27/18 16:22 128/72 01/27/18 15:01 129/77 01/27/18 14:41 68 15 98 01/27/18 14:31 127/73 01/27/18 14:21 80 22 137/83 97 01/27/18 14:20 137/83 01/27/18 13:44 36.5 98 22 152/98 99 General Appearance: WD/WN, no apparent distress Head: normocephalic Eyes: normal inspection ENT: normal ENT inspection Neck: supple, no JVD Respiratory/Chest: chest non-tender, lungs clear, normal breath sounds Cardiovascular: regular rate, rhythm, no edema, no gallop, no JVD, no murmur Abdomen/GI: normal bowel sounds, soft, no organomegaly, no pulsatile mass, + tenderness (at RUQ, no rebound pain) Extremities/Musculoskelatal: normal inspection, no calf tenderness, normal capillary refill Neurologic/Psych: no motor/sensory deficits, alert, normal mood/affect Skin: normal color, warm/dry, no rash Laboratory Results Last 24 Hours Test 01/27/18 14:09 01/27/18 18:32 White Blood Count 10.62 K/uL Red Blood Count 5.05 M/uL Hemoglobin 15.5 g/dL Hematocrit 45.6 % Mean Corpuscular Volume 90.3 fL Mean Corpuscular Hemoglobin 30.7 pg Mean Corpuscular Hemoglobin Concent 34.0 g/dl Platelet Count 238 K/uL Mean Platelet Volume 10.5 fL Neutrophils (%) (Auto) 76.2 % Lymphocytes (%) (Auto) 18.4 % Monocytes (%) (Auto) 4.9 % Eosinophils (%) (Auto) 0.1 % Basophils (%) (Auto) 0.2 % Neutrophils # (Auto) 8.10 K/uL Lymphocytes # (Auto) 1.95 K/uL Monocytes # (Auto) 0.52 K/uL Eosinophils # (Auto) 0.01 K/uL Basophils # (Auto) 0.02 K/uL RDW Standard Deviation 42.3 fL RDW Coefficient of Variation 12.9 % Immature Granulocyte % (Auto) 0.2 % Immature Granulocyte # (Auto) 0.02 K/uL Sodium Level 139 mmol/L Potassium Level 3.8 mmol/L Chloride Level 106 mmol/L Carbon Dioxide Level 24 mmol/L Anion Gap 9.0 mmol/L Blood Urea Nitrogen 9 mg/dl Creatinine 0.76 mg/dl Est Creatinine Clear Calc Drug Dose 78.1 ml/min Estimated GFR () 97.4 Estimated GFR (Non- 84.1 BUN/Creatinine Ratio 12.3 Random Glucose 109 mg/dl Calcium Level 9.1 mg/dl Total Bilirubin 0.2 mg/dl Direct Bilirubin mg/dl Aspartate Amino Transf (AST/SGOT) 17 U/L Alanine Aminotransferase (ALT/SGPT) 20 U/L Alkaline Phosphatase 97 U/L Total Protein 7.8 gm/dl Albumin 3.8 gm/dl Lipase 219 U/L Chemistry Specimen Hemolysis Urine Color YELLOW Urine Appearance CLEAR Urine pH 5.0 Urine Specific [place] 1.017 Urine Protein NEG Urine Glucose (UA) NEG Urine Ketones 1+ Urine Occult Blood NEG Urine Nitrite NEG Urine Bilirubin NEG Urine Urobilinogen NEG Urine Leukocyte Esterase NEG Urine WBC (Auto) 1-5 /hpf Urine RBC (Auto) 0-4 /hpf Urine Hyaline Casts (Auto) 1-5 /lpf Urine Epithelial Cells (Auto) 20-30 /lpf Urine Bacteria (Auto) NEG Urine Crystals CALCIUM OXALATE Assessment & Plan U/S study-FINDINGS: There is no biliary ductal dilatation. The gallbladder is mildly distended. There is trace pericholecystic fluid. A nonmobile stone within the gallbladder neck is noted. No sonographic Negrete sign was reported. The pancreas is unremarkable by sonography. There is no right hydronephrosis. There may be fatty infiltration of the liver. IMPRESSION: 1. Cholelithiasis, including a nonmobile stone within the gallbladder neck. Mild gallbladder distention and trace pericholecystic fluid. No gallbladder wall thickening. No sonographic Negrete sign. If clinical suspicion for acute cholecystitis, a hepatobiliary scan could be obtained. 2. No biliary ductal dilatation. 3. Fatty liver. CT Scan-CT DOSE: 579.91 mGy.cm FINDINGS: Lower chest: There are minor dependent atelectatic changes. Liver: There is mild hepatic steatosis. No focal masses are visualized. Gallbladder: The gallbladder is minimally distended. There is no gallbladder wall thickening. There is no ductal dilatation. If there is clinical concern the presence of acute gallbladder disease, a nuclear medicine hepatobiliary study could be obtained in follow-up. Spleen: Normal in size and attenuation. Pancreas: Unremarkable. Adrenal glands: Unremarkable. Kidneys: There is symmetric renal cortical enhancement. The kidneys are normal in size without hydronephrosis. Bowel: There are no transition zones indicate bowel obstruction. There is no acute diverticulitis. There is no evidence of acute appendicitis. Peritoneum: There is no intraperitoneal free air or abdominal ascites. There is a tiny fat-containing umbilical hernia. Vasculature: The abdominal aorta is normal in course and caliber. Adenopathy: None. Pelvic viscera: The uterus appears surgically absent Skeletal structures: Postsurgical changes are present within the lumbar spine IMPRESSION: 1. No evidence of bowel obstruction. No evidence of free air 2. No evidence of acute diverticulitis. No evidence of acute appendicitis 3. Mild gallbladder distention Assessment: pt is a 62 year old female who was admitted to hospital for RUQ pain , with nausea and vomiting, IMP: acute cholecystitis, cholelithiasis Plan, I recommend to do laparoscopic cholecystectomy, possible open or cholangiogram, D/W benefits, risks and alternatives of the procedure, the risks - infection, bleeding, injury CBD, Bowel, biliary leak, may need ERCP, pt understood, she agrees with the surgery, I answered all questions,
[2018-01-27 23:15] VITALS: BP 100/65; PULSE 67; TEMP 36.6; O2SAT 97
[2018-01-28] MEDS: HYDROmorphone INJ 0.5 MG/0.5 ML SYR IV PRN (04:00)
[2018-01-28 06:38] LABS: HEMATOCRIT 38.9 % (37-47); HEMOGLOBIN 12.8 g/dL (12.0-16.0); MEAN CELL VOLUME 91.3 fL (80-100); MEAN CORPUSCULAR HGB CONC 32.9 g/dl (32-36); MEAN PLATELET VOLUME 10.4 fL (7.4-10.4); PLATELET COUNT 189 K/uL (130-400); RED CELL DISTRIBUTION WIDTH CV 13.3 % (11.5-14.5); RED CELL DISTRIBUTION WIDTH SD 43.9 fL (36.4-46.3); WHITE BLOOD COUNT 5.26 K/uL (4.8-10.8)
[2018-01-28 07:05] LABS: ALBUMIN 2.8 gm/dl (3.4-5.0); CALCIUM 8.2 mg/dl (8.5-10.1); CREATININE 0.61 mg/dl (0.60-1.20); POTASSIUM 3.6 mmol/L (3.5-5.1)
[2018-01-28] MEDS: D5W AND LACTATED RINGERS 1,000 ML IV SCH ×3 (07:25→20:53)
[2018-01-28] MEDS: ONDANSETRON INJ 2 MG/ML 2 ML VIAL IV PRN (07:42)
[2018-01-28 08:00] VITALS: BP 122/76; PULSE 78; TEMP 36.7; O2SAT 97
--- NOTE | 2018-01-28 09:08 | Surgery Progress Note ---
Surgery Progress Note Date of Service Jan 28, 2018. Subjective pt has some EKG change this morning, pt denies chest pain, less abdominal pain, no nausea no vomiting. Objective Vital Signs: Date Time Temp Pulse Resp B/P (MAP) Pulse Ox O2 Delivery O2 Flow Rate FiO2 01/28/18 08:00 36.7 78 14 122/76 (91) 97 Room Air 01/28/18 08:00 Room Air 01/27/18 23:55 Room Air 01/27/18 23:15 36.6 67 14 100/65 (77) 97 Room Air 01/27/18 18:30 36.9 79 16 141/98 97 Room Air 01/27/18 18:23 36.5 77 17 136/77 97 01/27/18 18:01 136/77 01/27/18 17:51 77 17 97 01/27/18 17:46 76 16 99 01/27/18 17:31 108/74 01/27/18 17:16 76 15 99 01/27/18 17:06 81 20 139/65 99 Room Air 01/27/18 17:01 139/65 01/27/18 16:46 81 20 99 01/27/18 16:41 79 20 100 01/27/18 16:40 134/78 01/27/18 16:31 134/78 01/27/18 16:22 128/72 01/27/18 15:01 129/77 01/27/18 14:41 68 15 98 01/27/18 14:31 127/73 01/27/18 14:21 80 22 137/83 97 01/27/18 14:20 137/83 01/27/18 13:44 36.5 98 22 152/98 99 General Appearance: WD/WN, no apparent distress Head: normocephalic Neck: supple Respiratory/Chest: chest non-tender, lungs clear Cardiovascular: regular rate, rhythm, no edema Abdomen: normal bowel sounds, non tender, non distended, soft Extremities: normal range of motion, non-tender, normal inspection Laboratory Results: Results Past 24 Hours Test 01/27/18 14:09 01/27/18 18:32 01/28/18 06:10 Range/Units White Blood Count 10.62 5.26 4.8-10.8 K/uL Red Blood Count 5.05 4.26 4.2-5.4 M/uL Hemoglobin 15.5 12.8 12.0-16.0 g/dL Hematocrit 45.6 38.9 37-47 % Mean Corpuscular Volume 90.3 91.3 80-100 fL Mean Corpuscular Hemoglobin 30.7 30.0 25-34 pg Mean Corpuscular Hemoglobin Concent 34.0 32.9 32-36 g/dl Platelet Count 238 189 130-400 K/uL Mean Platelet Volume 10.5 10.4 7.4-10.4 fL Neutrophils (%) (Auto) 76.2 % Lymphocytes (%) (Auto) 18.4 % Monocytes (%) (Auto) 4.9 % Eosinophils (%) (Auto) 0.1 % Basophils (%) (Auto) 0.2 % Neutrophils # (Auto) 8.10 1.4-6.5 K/uL Lymphocytes # (Auto) 1.95 1.2-3.4 K/uL Monocytes # (Auto) 0.52 0.11-0.59 K/uL Eosinophils # (Auto) 0.01 0-0.5 K/uL Basophils # (Auto) 0.02 0-0.2 K/uL RDW Standard Deviation 42.3 43.9 36.4-46.3 fL RDW Coefficient of Variation 12.9 13.3 11.5-14.5 % Immature Granulocyte % (Auto) 0.2 % Immature Granulocyte # (Auto) 0.02 0.00-0.02 K/uL Sodium Level 139 143 136-145 mmol/L Potassium Level 3.8 3.6 3.5-5.1 mmol/L Chloride Level 106 110 98-107 mmol/L Carbon Dioxide Level 24 27 21-32 mmol/L Anion Gap 9.0 6.0 3-11 mmol/L Blood Urea Nitrogen 9 6 7-18 mg/dl Creatinine 0.76 0.61 0.60-1.20 mg/dl Est Creatinine Clear Calc Drug Dose 78.1 97.3 ml/min Estimated GFR () 97.4 112.6 Estimated GFR (Non- 84.1 97.2 BUN/Creatinine Ratio 12.3 10.5 10-20 Random Glucose 109 115 70-99 mg/dl Calcium Level 9.1 8.2 8.5-10.1 mg/dl Total Bilirubin 0.2 0.4 0.2-1 mg/dl Direct Bilirubin 0-0.2 mg/dl Aspartate Amino Transf (AST/SGOT) 17 15 15-37 U/L Alanine Aminotransferase (ALT/SGPT) 20 21 12-78 U/L Alkaline Phosphatase 97 77 45-117 U/L Total Protein 7.8 6.0 6.4-8.2 gm/dl Albumin 3.8 2.8 3.4-5.0 gm/dl Lipase 219 73-393 U/L Chemistry Specimen Hemolysis Urine Color YELLOW Urine Appearance CLEAR CLEAR Urine pH 5.0 4.5-7.5 Urine Specific [place] 1.017 1.000-1.030 Urine Protein NEG NEG Urine Glucose (UA) NEG NEG Urine Ketones 1+ NEG Urine Occult Blood NEG NEG Urine Nitrite NEG NEG Urine Bilirubin NEG NEG Urine Urobilinogen NEG NEG Urine Leukocyte Esterase NEG NEG Urine WBC (Auto) 1-5 0-5 /hpf Urine RBC (Auto) 0-4 0-4 /hpf Urine Hyaline Casts (Auto) 1-5 0-5 /lpf Urine Epithelial Cells (Auto) 20-30 0-5 /lpf Urine Bacteria (Auto) NEG NEG Urine Crystals CALCIUM OXALATE NONE PRSENT Globulin 3.2 2.5-4.0 gm/dl Albumin/Globulin Ratio 0.9 0.9-2 Thyroid Stimulating Hormone (TSH) 2.860 0.300-4.500 uIu/ml Assessment & Plan the surgery is canceled, pt understood, I answered all questions, F/U me on clinic in 1 week, please call me if any questions, Thanks.
[2018-01-28 10:16] VITALS: O2SAT 97
--- NOTE | 2018-01-28 10:20 | ECHOCARDIOGRAM REPORT ---
*NOTICE TO RECEIVING REPUBLICAN AGENCY This information is strictly Confidential and protected under [place] law. [place] law prohibits you from making any further disclosure of this information unless further disclosure is expressly permitted by the written consent of the person to whom it pertains or is authorized by law. A general authorization for the release of medical or other information is not sufficient for this purpose. Hospital accepts no responsibility if the information is made available to any other person, INCLUDING THE PATIENT. Interpretation Summary * Name: REGAN ESPOSITO Study Date: 01/28/2018 08:41 AM BP: 122/76 mmHg * Patient Location: .[facility]\S\W355\S\2 HR: 78 * : 1955 (M/d/yyyy) Gender: Female Height: 62 in * Age: 62 yrs Ethnicity: [place] Weight: 189 lb * Ordering Physician: Guille Dumont * Referring Physician: Self, Referred * Performed By: Catalina Hampton RCS * * Reason For Study: Abnormal EKG, Pre-Op Clearance * BSA: 1.9 m2 * -- Conclusions -- * Normal LV chamber size and wall thickness. * Normal LV systolic function, EF 65-70%. * No segmental left ventricular wall motion abnormalities are noted. * Grade I diastolic dysfunction. * Aortic valve sclerosis mild, without significant aortic valvular stenosis. Procedure Details * A complete two-dimensional transthoracic echocardiogram was performed (2D, M-mode, Doppler and color flow Doppler). Left Ventricle * The left ventricle is normal in size. * There is normal left ventricular wall thickness. * Ejection Fraction = 65-70%. * Left ventricular systolic function is normal. * No segmental left ventricular wall motion abnormalities are noted. * The left ventricular wall motion is normal. Right Ventricle * The right ventricular cavity size is normal (basal dimension <4.2 cm in right ventricular apical 4-chamber view). * The right ventricular systolic function is normal as assessed by tricuspid annular plane systolic excursion (TAPSE) (normal >1.5 cm). Atria * The left atrial size is normal. * Right atrial size is normal. * No ASD detected; PFO is not assessed. Mitral Valve * The mitral valve leaflets appear thickened, but open well. * There is no mitral valve stenosis. * There is no mitral regurgitation noted. Tricuspid Valve * The tricuspid valve is normal in structure and function. Aortic Valve * The aortic valve is trileaflet. * Aortic valve sclerosis mild, without significant aortic valvular stenosis. * There is no significant aortic regurgitation. Pulmonic Valve * The pulmonary valve is not well seen, but the Doppler examination is normal without significant regurgitation or stenosis. Great Vessels * The aortic root and proximal ascending aorta are normal sized. Pericardium/Pleural * There is no pericardial effusion. Left Ventricular Diastolic Function * Grade I diastolic dysfunction, (abnormal relaxation pattern). MMode 2D Measurements and Calculations IVSd 0.95 cm IVSs 1.3 cm LVIDd 4.3 cm LVIDs 2.5 cm LVPWd 0.97 cm LVPWs 1.3 cm IVS/LVPW 0.98 FS 40.4 % EDV(Teich) 81.5 ml ESV(Teich) 23.3 ml EF(Teich) 71.4 % EDV(cubed) 77.7 ml ESV(cubed) 16.5 ml EF(cubed) 78.8 % % IVS thick 39.1 % % LVPW thick 39.1 % LV mass(C)d 132.5 grams LV mass(C)dI 71.0 grams/m\S\2 LV mass(C)s 104.5 grams LV mass(C)sI 56.0 grams/m\S\2 SV(Teich) 58.2 ml SI(Teich) 31.2 ml/m\S\2 SV(cubed) 61.2 ml SI(cubed) 32.8 ml/m\S\2 Ao root diam 3.1 cm Ao root area 7.5 cm\S\2 ACS 1.4 cm LA dimension 3.5 cm asc Aorta Diam 3.1 cm LA/Ao 1.1 EDV(MOD-sp4) 64.1 ml ESV(MOD-sp4) 23.9 ml EF(MOD-sp4) 62.7 % EDV(MOD-sp2) 79.4 ml ESV(MOD-sp2) 24.6 ml EF(MOD-sp2) 69.1 % SV(MOD-sp4) 40.2 ml SI(MOD-sp4) 21.5 ml/m\S\2 SV(MOD-sp2) 54.8 ml SI(MOD-sp2) 29.4 ml/m\S\2 Doppler Measurements and Calculations MV E max rigoberto 80.9 cm/sec MV A max rigoberto 78.2 cm/sec MV E/A 1.0 MV P1/2t max rigoberto 88.0 cm/sec MV P1/2t 76.8 msec MVA(P1/2t) 2.9 cm\S\2 MV dec slope 335.4 cm/sec\S\2 MV dec time 0.40 sec Ao V2 max 135.9 cm/sec Ao max PG 7.4 mmHg Ao max PG (full) 3.2 mmHg LV V1 max PG 4.2 mmHg LV V1 max 102.4 cm/sec PA V2 max 97.1 cm/sec PA max PG 3.8 mmHg TR max rigoberto 259.6 cm/sec
--- NOTE | 2018-01-28 11:00 | Progress Note ---
Medicine Progress Note Date & Time of Visit: Jan 28, 2018 at 10:28. Subjective Pt was seen and examined Sitting in bed with no distress with family at bedside Pt said that her abdominal pain improves Denies any chest pain, palpitation, dizziness and SOB Objective Last 8 Hrs Date Time Temp Pulse Resp B/P (MAP) Pulse Ox O2 Delivery O2 Flow Rate FiO2 01/28/18 10:16 97 Room Air 01/28/18 08:00 36.7 78 14 122/76 (91) 97 Room Air 01/28/18 08:00 Room Air Physical Exam: General- No acute distress Head- atraumatic Eyes- PERRL, EOMI ENT- oropharynx clear Neck- supple, no JVD Lungs- clear to auscultation Heart- regular rhythm Abdomen- RUQ tenderness on admission Extremities- no calf tenderness Neuro- alert, oriented x 3; PERRL, EOMI Skin- warm & dry Laboratory Results: Last 24 Hours Test 01/27/18 14:09 01/27/18 18:32 01/28/18 06:10 White Blood Count 10.62 K/uL 5.26 K/uL Red Blood Count 5.05 M/uL 4.26 M/uL Hemoglobin 15.5 g/dL 12.8 g/dL Hematocrit 45.6 % 38.9 % Mean Corpuscular Volume 90.3 fL 91.3 fL Mean Corpuscular Hemoglobin 30.7 pg 30.0 pg Mean Corpuscular Hemoglobin Concent 34.0 g/dl 32.9 g/dl Platelet Count 238 K/uL 189 K/uL Mean Platelet Volume 10.5 fL 10.4 fL Neutrophils (%) (Auto) 76.2 % Lymphocytes (%) (Auto) 18.4 % Monocytes (%) (Auto) 4.9 % Eosinophils (%) (Auto) 0.1 % Basophils (%) (Auto) 0.2 % Neutrophils # (Auto) 8.10 K/uL Lymphocytes # (Auto) 1.95 K/uL Monocytes # (Auto) 0.52 K/uL Eosinophils # (Auto) 0.01 K/uL Basophils # (Auto) 0.02 K/uL RDW Standard Deviation 42.3 fL 43.9 fL RDW Coefficient of Variation 12.9 % 13.3 % Immature Granulocyte % (Auto) 0.2 % Immature Granulocyte # (Auto) 0.02 K/uL Sodium Level 139 mmol/L 143 mmol/L Potassium Level 3.8 mmol/L 3.6 mmol/L Chloride Level 106 mmol/L 110 mmol/L Carbon Dioxide Level 24 mmol/L 27 mmol/L Anion Gap 9.0 mmol/L 6.0 mmol/L Blood Urea Nitrogen 9 mg/dl 6 mg/dl Creatinine 0.76 mg/dl 0.61 mg/dl Est Creatinine Clear Calc Drug Dose 78.1 ml/min 97.3 ml/min Estimated GFR () 97.4 112.6 Estimated GFR (Non- 84.1 97.2 BUN/Creatinine Ratio 12.3 10.5 Random Glucose 109 mg/dl 115 mg/dl Calcium Level 9.1 mg/dl 8.2 mg/dl Total Bilirubin 0.2 mg/dl 0.4 mg/dl Direct Bilirubin mg/dl Aspartate Amino Transf (AST/SGOT) 17 U/L 15 U/L Alanine Aminotransferase (ALT/SGPT) 20 U/L 21 U/L Alkaline Phosphatase 97 U/L 77 U/L Total Protein 7.8 gm/dl 6.0 gm/dl Albumin 3.8 gm/dl 2.8 gm/dl Lipase 219 U/L Chemistry Specimen Hemolysis Urine Color YELLOW Urine Appearance CLEAR Urine pH 5.0 Urine Specific [place] 1.017 Urine Protein NEG Urine Glucose (UA) NEG Urine Ketones 1+ Urine Occult Blood NEG Urine Nitrite NEG Urine Bilirubin NEG Urine Urobilinogen NEG Urine Leukocyte Esterase NEG Urine WBC (Auto) 1-5 /hpf Urine RBC (Auto) 0-4 /hpf Urine Hyaline Casts (Auto) 1-5 /lpf Urine Epithelial Cells (Auto) 20-30 /lpf Urine Bacteria (Auto) NEG Urine Crystals CALCIUM OXALATE Globulin 3.2 gm/dl Albumin/Globulin Ratio 0.9 Thyroid Stimulating Hormone (TSH) 2.860 uIu/ml Assessment & Plan CHOLELITHIASIS / CHOLECYSTITIS Present with RUQ abdominal pain CT abdomen showed mild gallbladder distention gallbladder U/S showed Cholelithiasis, including a nonmobile stone within the gallbladder neck. Mild gallbladder distention and trace pericholecystic fluid. On IV piperacillin/tazobactam Continue IVF and pain management Surgery on board Pt has a functional capacity with a METS greater than 4 and schedule for a moderate risk procedure Denies any chest pain, palpitation, dizziness and SOB Echo showed normal EF with no wall abnormality Surgical risks discussed with pt by the surgical team Pt is medical stable to proceed with surgery ECHO Normal LV chamber size and wall thickness. * Normal LV systolic function, EF 65-70%. * No segmental left ventricular wall motion abnormalities are noted. * Grade I diastolic dysfunction. * Aortic valve sclerosis mild, without significant aortic valvular stenosis. HISTORY OF HYPOTHYROIDISM Levothyroxine was discontinued few months ago TSH WNL Stable VTE PROPHYLAXIS SCDS (schedule for possible surgery) Ambulate. DISPOSITION Plan to go to surgery will discharge once medically stable Current Inpatient Medications: Current Inpatient Medications Medications (Trade) Dose Ordered Sig/Marbin Route Start Time Stop Time Status Last Admin Dose Admin Ioversol (Optiray 320) 100 ml UD PRN IV 01/27/18 14:15 01/31/18 14:14 Ondansetron HCl (Zofran Inj) 4 mg Q6H PRN IV 01/27/18 18:00 02/26/18 17:59 01/28/18 07:42 4 MG Dextrose/Lactated Ringer's 1,000 ml @ 150 mls/hr Q6H40M IV 01/27/18 18:30 02/26/18 18:29 01/28/18 07:25 150 MLS/HR Hydromorphone HCl (Dilaudid Inj) 0.5 mg Q3H PRN IV 01/27/18 18:30 02/10/18 18:29 01/28/18 04:00 0.5 MG Hydromorphone HCl (Dilaudid Inj) 1 mg Q3H PRN IV 01/27/18 18:30 02/10/18 18:29
[2018-01-28] MEDS ORDERED: ACETAMINOPHEN 325 MG TAB ONE (14:18)
[2018-01-28] MEDS ORDERED: NURSING VERBAL MED ORDER ONE ×2 (14:30→16:00)
[2018-01-28 14:52] VITALS: BP 117/79; PULSE 75; TEMP 36.8; O2SAT 98
[2018-01-28] MEDS ORDERED: TRAMADOL HCL 50 MG TAB PO ONE (16:00)
[2018-01-28] MEDS: ACETAMINOPHEN 325 MG TAB PO PRN (20:28)
[2018-01-28] MEDS ORDERED: TRAMADOL HCL 50 MG TAB ONE (22:17)
[2018-01-28 23:05] VITALS: BP 117/74; PULSE 62; TEMP 36.6; O2SAT 97
[2018-01-29] VITALS (8 sets, daily range): BP systolic 120–144; BP diastolic 74–84; PULSE 60–75; TEMP 36.6–36.8; O2SAT 93–98
[2018-01-29] MEDS: D5W AND LACTATED RINGERS 1,000 ML IV SCH ×4 (03:16→20:13)
[2018-01-29 06:55] LABS: HEMATOCRIT 38.5 % (37-47); HEMOGLOBIN 12.8 g/dL (12.0-16.0); MEAN CORPUSCULAR HEMOGLOBIN 30.3 pg (25-34); MEAN CORPUSCULAR HGB CONC 33.2 g/dl (32-36); MEAN PLATELET VOLUME 10.2 fL (7.4-10.4); PLATELET COUNT 186 K/uL (130-400); RED CELL DISTRIBUTION WIDTH SD 42.9 fL (36.4-46.3); WHITE BLOOD COUNT 4.19 K/uL (4.8-10.8)
[2018-01-29 07:24] LABS: ALBUMIN 2.6 gm/dl (3.4-5.0); ALT/SGPT 18 U/L (12-78); BLOOD UREA NITROGEN 4 mg/dl (7-18); CALCIUM 8.2 mg/dl (8.5-10.1); CARBON DIOXIDE 27 mmol/L (21-32); CREATININE 0.55 mg/dl (0.60-1.20); GLUCOSE 102 mg/dl (70-99); POTASSIUM 3.5 mmol/L (3.5-5.1); SODIUM 143 mmol/L (136-145)
[2018-01-29 07:29] LABS: ALKALINE PHOSPHATASE 72 U/L (45-117); AST/SGOT 12 U/L (15-37); TOTAL PROTEIN 5.7 gm/dl (6.4-8.2)
--- NOTE | 2018-01-29 08:03 | Surgery Progress Note ---
Surgery Progress Note Date of Service Jan 29, 2018. Subjective + feeling well Based on pt had EKG change yesterday, the surgery was cancelled yesterday, pt denies any chest pain, pt had Echo by primary education professor, who recommend that pt will be tolerated the cholecystectomy, Objective Vital Signs: Date Time Temp Pulse Resp B/P (MAP) Pulse Ox O2 Delivery O2 Flow Rate FiO2 01/29/18 07:48 36.6 75 16 125/82 (96) 97 Room Air 01/28/18 23:25 Room Air 01/28/18 23:05 36.6 62 16 117/74 (88) 97 Room Air 01/28/18 15:40 Room Air 01/28/18 14:52 36.8 75 16 117/79 (92) 98 Room Air 75 01/28/18 10:16 97 Room Air 01/28/18 08:00 36.7 78 14 122/76 (91) 97 Room Air 01/28/18 08:00 Room Air General Appearance: WD/WN, no apparent distress Head: normocephalic Neck: supple, no JVD Respiratory/Chest: chest non-tender, lungs clear, normal breath sounds Cardiovascular: regular rate, rhythm, no edema, no gallop, no JVD, no murmur Abdomen: normal bowel sounds, non tender (RUQ), non distended, soft, + tenderness Extremities: normal range of motion, non-tender, normal inspection Laboratory Results: Results Past 24 Hours Test 01/28/18 12:00 01/29/18 06:41 Range/Units Troponin I < 0.015 < 0.015 0-0.045 ng/ml White Blood Count 4.19 4.8-10.8 K/uL Red Blood Count 4.23 4.2-5.4 M/uL Hemoglobin 12.8 12.0-16.0 g/dL Hematocrit 38.5 37-47 % Mean Corpuscular Volume 91.0 80-100 fL Mean Corpuscular Hemoglobin 30.3 25-34 pg Mean Corpuscular Hemoglobin Concent 33.2 32-36 g/dl RDW Standard Deviation 42.9 36.4-46.3 fL RDW Coefficient of Variation 13.0 11.5-14.5 % Platelet Count 186 130-400 K/uL Mean Platelet Volume 10.2 7.4-10.4 fL Sodium Level 143 136-145 mmol/L Potassium Level 3.5 3.5-5.1 mmol/L Chloride Level 109 98-107 mmol/L Carbon Dioxide Level 27 21-32 mmol/L Anion Gap 7.0 3-11 mmol/L Blood Urea Nitrogen 4 7-18 mg/dl Creatinine 0.55 0.60-1.20 mg/dl Est Creatinine Clear Calc Drug Dose 107.9 ml/min Estimated GFR () 116.5 Estimated GFR (Non- 100.5 BUN/Creatinine Ratio 6.5 10-20 Random Glucose 102 70-99 mg/dl Calcium Level 8.2 8.5-10.1 mg/dl Total Bilirubin 0.3 0.2-1 mg/dl Aspartate Amino Transf (AST/SGOT) 12 15-37 U/L Alanine Aminotransferase (ALT/SGPT) 18 12-78 U/L Alkaline Phosphatase 72 45-117 U/L Total Protein 5.7 6.4-8.2 gm/dl Albumin 2.6 3.4-5.0 gm/dl Globulin 3.1 2.5-4.0 gm/dl Albumin/Globulin Ratio 0.8 0.9-2 Assessment & Plan the surgery is canceled, pt understood, I answered all questions, F/U me on clinic in 1 week, please call me if any questions, Thanks. 01/29/2018 tropine is negative pt wants to do laparoscopic cholecystectomy today, D/W benefits, risks and alternatives of the procedure, the risks -infection, bleeding, injury CBD, bowel , may need ERCP, possible open or cholangiogram, PA, DVT, stroke, , pt and her family members understood, they agree with the surgery. I answered all questions, the surgery is canceled, pt understood, I answered all questions, F/U me on clinic in 1 week, please call me if any questions, Thanks.
[2018-01-29] MEDS ORDERED: LIDOCAINE HCL 1% 20 ML VIAL ONE (10:39)
[2018-01-29] MEDS ORDERED: CEFAZOLIN SOD 2000MG/15 ML IV PUSH IV ONE (10:39)
[2018-01-29] MEDS ORDERED: PROPOFOL IV EMULSION 10 MG/ML 20 ML VIAL IV ONE (10:40)
[2018-01-29] MEDS ORDERED: CONRAY 60% 50 ML VIAL ONE (10:40)
[2018-01-29] MEDS ORDERED: LIDOCAINE HCL 2% 2 ML VIAL (20MG/ML) ONE (10:40)
[2018-01-29] MEDS ORDERED: NEOSTIGMINE METHYLSULFATE 5 MG/5 ML SYR ONE (10:40)
[2018-01-29] MEDS ORDERED: FENTANYL CITRATE INJ 50 MCG/1 ML 2 ML VIAL ONE ×2 (10:40→11:44)
[2018-01-29] MEDS ORDERED: GLYCOPYRROLATE INJ 0.2 MG/ML VIAL ONE ×2 (10:40→11:42)
[2018-01-29] MEDS ORDERED: DEXAMETHASONE SOD INJ 4 MG/ML VIAL ONE (10:40)
[2018-01-29] MEDS ORDERED: MIDAZOLAM HCL 1 MG/ML 2ML VIAL ONE (10:40)
[2018-01-29] MEDS ORDERED: BUPIVACAINE 0.5 % 5 MG/1 ML MPF 30ML VIAL ONE (10:40)
[2018-01-29] MEDS ORDERED: BACITRACIN OINT 15 GM TUBE ONE (10:40)
[2018-01-29] MEDS ORDERED: ONDANSETRON INJ 2 MG/ML 2 ML VIAL ONE ×2 (10:40→11:42)
[2018-01-29] MEDS ORDERED: ROCURONIUM BROMIDE 10 MG/ML 5 ML VIAL IV ONE (11:40)
[2018-01-29] MEDS ORDERED: LARYING-O-JET KIT (LTA) ONE (11:40)
[2018-01-29] MEDS ORDERED: PHENYLEPHRINE 100MCG/ML 5ML SYR ONE (11:40)
[2018-01-29] MEDS ORDERED: FLUMAZENIL 0.1 MG/1 ML 10 ML VIAL IV PRN (12:00)
[2018-01-29] MEDS ORDERED: ONDANSETRON INJ 2 MG/ML 2 ML VIAL IV PRN (12:00)
[2018-01-29] MEDS ORDERED: PROMETHAZINE HCL INJ 12.5 MG in SODIUM CHLORIDE 0.9% 50ML 50 ML IV PRN (12:00)
[2018-01-29] MEDS ORDERED: EpHEDrine SULFATE INJ 50 MG/ML AMP IV PRN (12:00)
[2018-01-29] MEDS ORDERED: ATROPINE SULFATE 0.1 MG/ML 5ML SYR IV PRN (12:00)
[2018-01-29] MEDS ORDERED: NALOXONE HCL 0.4 MG/1 ML VIAL/CARP IV PRN (12:00)
[2018-01-29] MEDS ORDERED: LABETALOL HCL IV 5 MG/ML 20ML IV PRN (12:00)
[2018-01-29] MEDS ORDERED: KETOROLAC TROMETHAMINE 30 MG/ML VIAL ONE (12:22)
--- NOTE | 2018-01-29 12:29 | [facility] Post Operative Brief Note ---
Immediate Operative Summary Operative Date Jan 29, 2018. Pre-Operative Diagnosis acute cholecystitis, cholelithiasis Post-Operative Diagnosis Same as preop Procedure(s) Performed Laparoscopic Cholecystectomy Surgeon Dr. Jones Obedience Trainer Surgeon(s) Masha August PA-C Estimated Blood Loss 10 ml Findings Consistent with Post-Op Diagnosis acute cholecystitis Specimens A. Gall Bladder and Contents Drains None Anesthesia Type General Complication(s) none Disposition Accompanied Pt To Recover: yes Disposition: Recovery Room / PACU
[2018-01-29] MEDS: HYDROmorphone INJ 0.5 MG/0.5 ML SYR IV PRN ×4 (13:01→13:16)
--- NOTE | 2018-01-29 13:27 | Anesthesiology Progress Note ---
Anesthesia Post Op Note Date & Time Jan 29, 2018 at 13:26 Vital Signs Pain Intensity: 3.0 Vital Signs Past 12 Hours Date Time Temp Pulse Resp B/P (MAP) Pulse Ox O2 Delivery O2 Flow Rate FiO2 01/29/18 13:15 62 14 132/73 100 Nasal Cannula 3 01/29/18 13:05 65 14 129/67 100 Oxymask 3 01/29/18 12:55 65 12 129/67 100 Oxymask 5 01/29/18 12:47 36.4 66 12 143/74 97 Oxymask 10 01/29/18 07:48 36.6 75 16 125/82 (96) 97 Room Air 01/29/18 07:20 Room Air Notes Mental Status: alert / awake / arousable, participated in evaluation Pt Amnestic to Procedure: Yes Nausea / Vomiting: adequately controlled Pain: adequately controlled Airway Patency, RR, SpO2: stable & adequate BP & HR: stable & adequate Hydration State: stable & adequate Anesthetic Complications: no major complications apparent
[2018-01-29] MEDS ORDERED: OXYCODONE/ACETAMINOPHEN 5-325 TAB PO PRN ×2 (13:45)
[2018-01-29] MEDS: ONDANSETRON INJ 2 MG/ML 2 ML VIAL IV PRN (13:48)
--- NOTE | 2018-01-29 13:59 | OPERATIVE REPORT ---
DATE OF OPERATION: 01/29/2018 PREOPERATIVE DIAGNOSES: Acute cholecystitis, cholelithiasis. POSTOPERATIVE DIAGNOSIS: Same. PROCEDURE: Laparoscopic cholecystectomy. SURGEON: Dr. Bayron Jones. FACILITIES ENGINEER: Masha Amaya PA-C ANESTHESIA: General. ESTIMATED BLOOD LOSS: About 10 mL. FINDINGS: Acute cholecystitis. COMPLICATIONS: None. INDICATIONS FOR THE PROCEDURE: This is a 62-year-old female who presented with acute cholecystitis and cholelithiasis. The patient will be required to do laparoscopic cholecystectomy, possible open, possible cholangiogram. I did talk to the patient about the benefit and risk, alternate procedure. I indicated the risks may include but not limited such as bleeding, infection, injury to common bile duct, injury to bowel, bile leak, may need ERCP, myocardial infarction, DVT, stroke, even . The patient understands. She signed informed consent and I answered all questions. DETAILS OF PROCEDURE: We brought the patient into the OR, put the patient in the supine position. The patient received SCDs on bilateral legs to prevent DVT. Also, patient received 2 grams Ancef IV for prophylactic antibiotic. The patient received general anesthesia without difficulty. The abdomen was prepped and draped in routine sterile fashion. After a timeout, we injected the local anesthesia by using 1% lidocaine mixed with 0.5% Marcaine just above umbilicus. Then made a small incision just above umbilicus, opened fascia and opened peritoneum under direct vision, put a Ruthie trocar in, connected to CO2 to create pneumoperitoneum. Flow rate at 6 liter per minute. Pressure not more than 14 mmHg. Once we get a nice pneumoperitoneum, we put the camera in looked around the abdomen shows no word finding on the stomach, small bowel, large bowel, liver; however, the gallbladder showing significant inflammation, edema wall thickening on the gallbladder wall, conformed diagnosis of acute cholecystitis. Then, we put another three 5 mm trocar on the right upper quadrant. Once all trocars in, I put a grasper in and hold the base of the gallbladder, put direction to the diaphragm, put another grasper in to hold the pouch gallbladder, put latter to expose the triangle of Calot. The cystic duct was identified and mobilized. I put a 10 mm on the proximal cystic duct, x2, one on the distal cystic duct then I used a seizure transection cystic duct. Then cystic artery was identified and mobilized and I put two 10 mm metal clips on the proximal cystic artery, one on the distal cystic duct artery then used a seizure transection cystic duct artery. I used the Bovie to take down the gallbladder from the liver bed without difficulty. Rechecked, no active bleeding, no bile leak. Then we removed the gallbladder through the catch bag. Then we reinserted Ruthie trocar in, connected to CO2 to create pneumoperitoneum, again looked around the abdomen showing no active bleeding, no bile leak from the liver bed. Then we removed all trocars under direct vision. No active bleeding from trocar sites. Pneumoperitoneum was released. Closing the umbilical incision, fascial layer using #1 Vicryl [id number] x2, closed the subcutaneous layer by using 2-0 Vicryl, closed the skin by using 4-0 Vicryl continuous running epigastrium incision. Later on, we changed to the 10 mm trocar in and started to use a 10 mm clip, so we closed the 10 mm incision, fascial layer by using #1 Vicryl [id number] x2, closed subcutaneous layer by using 2-0 Vicryl, closed skin using 4-0 Vicryl continuous running and closed another two 5 mm trocar sites skin only by using 4-0 Vicryl. We put the dressing on. The patient tolerated the procedure well. All instrument, needle and sponge count were correct x2 at the end the case. The specimen sent to pathology. The patient transferred to recovery room in stable condition. I attest to the content of the Intraoperative Record and any orders documented therein. Any exceptions are noted below. BAIRON
[2018-01-29] MEDS: TRAMADOL HCL 50 MG TAB PO PRN ×2 (15:46→22:09)
[2018-01-29] MEDS: ACETAMINOPHEN 325 MG TAB PO PRN (19:24)
--- NOTE | 2018-01-29 20:48 | Progress Note ---
Medicine Progress Note Date & Time of Visit: Jan 29, 2018 at 20:45. Subjective Pt was seen and examined Lying in bed with no distress had gallbladder surgery today complaints of tenderness Denies any chest pain, palpitation and SOB Objective Last 8 Hrs Date Time Temp Pulse Resp B/P (MAP) Pulse Ox O2 Delivery O2 Flow Rate FiO2 01/29/18 19:55 36.8 65 16 131/81 (98) 94 Room Air 01/29/18 19:15 Room Air 01/29/18 16:55 36.8 63 15 124/77 (93) 98 Room Air 01/29/18 15:47 36.7 60 16 135/81 (99) 98 Room Air 01/29/18 14:57 60 16 135/79 (97) 97 2.0 01/29/18 14:23 60 16 144/84 (104) 98 2.0 01/29/18 13:50 36.8 65 16 129/79 (96) 97 Nasal Cannula 2.0 01/29/18 13:50 97 Nasal Cannula 2.0 01/29/18 13:35 58 16 133/73 100 Nasal Cannula 3 01/29/18 13:25 36.3 58 14 125/66 100 Nasal Cannula 3 01/29/18 13:15 62 14 132/73 100 Nasal Cannula 3 01/29/18 13:05 65 14 129/67 100 Oxymask 3 01/29/18 12:55 65 12 129/67 100 Oxymask 5 01/29/18 12:47 36.4 66 12 143/74 97 Oxymask 10 Physical Exam: General- No acute distress Head- atraumatic Eyes- PERRL, EOMI ENT- oropharynx clear Neck- supple, no JVD Lungs- clear to auscultation Heart- regular rhythm Abdomen- Tenderness with mild palpation around surgery area Extremities- no calf tenderness Neuro- alert, oriented x 3; PERRL, EOMI Skin- warm & dry Laboratory Results: Last 24 Hours Test 01/29/18 06:41 White Blood Count 4.19 K/uL Red Blood Count 4.23 M/uL Hemoglobin 12.8 g/dL Hematocrit 38.5 % Mean Corpuscular Volume 91.0 fL Mean Corpuscular Hemoglobin 30.3 pg Mean Corpuscular Hemoglobin Concent 33.2 g/dl RDW Standard Deviation 42.9 fL RDW Coefficient of Variation 13.0 % Platelet Count 186 K/uL Mean Platelet Volume 10.2 fL Sodium Level 143 mmol/L Potassium Level 3.5 mmol/L Chloride Level 109 mmol/L Carbon Dioxide Level 27 mmol/L Anion Gap 7.0 mmol/L Blood Urea Nitrogen 4 mg/dl Creatinine 0.55 mg/dl Est Creatinine Clear Calc Drug Dose 107.9 ml/min Estimated GFR () 116.5 Estimated GFR (Non- 100.5 BUN/Creatinine Ratio 6.5 Random Glucose 102 mg/dl Calcium Level 8.2 mg/dl Total Bilirubin 0.3 mg/dl Aspartate Amino Transf (AST/SGOT) 12 U/L Alanine Aminotransferase (ALT/SGPT) 18 U/L Alkaline Phosphatase 72 U/L Troponin I < 0.015 ng/ml Total Protein 5.7 gm/dl Albumin 2.6 gm/dl Globulin 3.1 gm/dl Albumin/Globulin Ratio 0.8 Assessment & Plan CHOLELITHIASIS / CHOLECYSTITIS Present with RUQ abdominal pain CT abdomen showed mild gallbladder distention gallbladder U/S showed Cholelithiasis, including a nonmobile stone within the gallbladder neck. Mild gallbladder distention and trace pericholecystic fluid. On IV piperacillin/tazobactam Continue IVF and pain management Surgery on board Pt has a functional capacity with a METS greater than 4 and schedule for a moderate risk procedure Denies any chest pain, palpitation, dizziness and SOB Echo showed normal EF with no wall abnormality Surgical risks discussed with pt by the surgical team Pt is medical stable to proceed with surgery 3/ S/p Laparoscopic Cholecystectomy day#0 No post-op complication continue pain control surgery on board ECHO Normal LV chamber size and wall thickness. * Normal LV systolic function, EF 65-70%. * No segmental left ventricular wall motion abnormalities are noted. * Grade I diastolic dysfunction. * Aortic valve sclerosis mild, without significant aortic valvular stenosis. HISTORY OF HYPOTHYROIDISM Levothyroxine was discontinued few months ago TSH WNL Stable VTE PROPHYLAXIS SCDS (schedule for possible surgery) Ambulate. DISPOSITION Plan to go to surgery will discharge once medically stable Current Inpatient Medications: Current Inpatient Medications Medications (Trade) Dose Ordered Sig/Marbin Route Start Time Stop Time Status Last Admin Dose Admin Ioversol (Optiray 320) 100 ml UD PRN IV 01/27/18 14:15 01/31/18 14:14 Ondansetron HCl (Zofran Inj) 4 mg Q6H PRN IV 01/27/18 18:00 02/26/18 17:59 01/29/18 13:48 4 MG Dextrose/Lactated Ringer's 1,000 ml @ 150 mls/hr Q6H40M IV 01/27/18 18:30 02/26/18 18:29 01/29/18 20:13 150 MLS/HR Hydromorphone HCl (Dilaudid Inj) 0.5 mg Q3H PRN IV 01/27/18 18:30 02/10/18 18:29 01/28/18 04:00 0.5 MG Hydromorphone HCl (Dilaudid Inj) 1 mg Q3H PRN IV 01/27/18 18:30 02/10/18 18:29 Acetaminophen (Tylenol Tab) 650 mg Q8H PRN PO 01/28/18 14:30 02/27/18 14:29 01/29/18 19:24 650 MG Tramadol HCl (Ultram Tab) not relieved ... Q6H PRN PO 01/28/18 22:00 02/27/18 21:59 01/29/18 15:46 50 MG Oxycodone/ Acetaminophen (Percocet 5-325mg Tab) 1 tab Q4H PRN PO 01/29/18 13:45 02/12/18 13:44 Oxycodone/ Acetaminophen (Percocet 5-325mg Tab) 2 tab Q4H PRN PO 01/29/18 13:45 02/12/18 13:44
[2018-01-30] MEDS: D5W AND LACTATED RINGERS 1,000 ML IV SCH ×2 (02:45→08:31)
[2018-01-30] MEDS ORDERED: NURSING DECISION MEDICATION ORDER SCH (03:00)
[2018-01-30 03:57] VITALS: BP 103/59; PULSE 61; TEMP 36.7; O2SAT 95
[2018-01-30] MEDS ORDERED: CEFAZOLIN SOD 2000MG/15 ML IV PUSH IV ONE (06:00)
--- NOTE | 2018-01-30 06:36 | Surgery Progress Note ---
Surgery Progress Note Date of Service Jan 30, 2018. Subjective Post OP Day: 1 + feeling well F/U S/P lap angelica, pt is doing fine, no abdominal pain, no nausea, no vomiting, Objective Vital Signs: Date Time Temp Pulse Resp B/P (MAP) Pulse Ox O2 Delivery O2 Flow Rate FiO2 01/30/18 03:57 36.7 61 16 103/59 (74) 95 Room Air 01/29/18 23:20 36.7 62 16 120/74 (89) 93 Room Air 01/29/18 19:55 36.8 65 16 131/81 (98) 94 Room Air 01/29/18 19:15 Room Air 01/29/18 16:55 36.8 63 15 124/77 (93) 98 Room Air 01/29/18 15:47 36.7 60 16 135/81 (99) 98 Room Air 01/29/18 14:57 60 16 135/79 (97) 97 2.0 01/29/18 14:23 60 16 144/84 (104) 98 2.0 01/29/18 13:50 36.8 65 16 129/79 (96) 97 Nasal Cannula 2.0 01/29/18 13:50 97 Nasal Cannula 2.0 01/29/18 13:35 58 16 133/73 100 Nasal Cannula 3 01/29/18 13:25 36.3 58 14 125/66 100 Nasal Cannula 3 01/29/18 13:15 62 14 132/73 100 Nasal Cannula 3 01/29/18 13:05 65 14 129/67 100 Oxymask 3 01/29/18 12:55 65 12 129/67 100 Oxymask 5 01/29/18 12:47 36.4 66 12 143/74 97 Oxymask 10 01/29/18 07:48 36.6 75 16 125/82 (96) 97 Room Air 01/29/18 07:20 Room Air General Appearance: WD/WN, no apparent distress Head: normocephalic Neck: supple, no JVD Respiratory/Chest: chest non-tender, lungs clear Cardiovascular: regular rate, rhythm, no edema, no gallop Abdomen: normal bowel sounds, non tender, non distended, soft Incision(s): clean, dry, intact Extremities: normal range of motion, non-tender, normal inspection Laboratory Results: Results Past 24 Hours Test 01/29/18 06:41 01/30/18 06:25 Range/Units White Blood Count 4.19 4.8-10.8 K/uL Red Blood Count 4.23 4.2-5.4 M/uL Hemoglobin 12.8 12.0-16.0 g/dL Hematocrit 38.5 37-47 % Mean Corpuscular Volume 91.0 80-100 fL Mean Corpuscular Hemoglobin 30.3 25-34 pg Mean Corpuscular Hemoglobin Concent 33.2 32-36 g/dl RDW Standard Deviation 42.9 36.4-46.3 fL RDW Coefficient of Variation 13.0 11.5-14.5 % Platelet Count 186 130-400 K/uL Mean Platelet Volume 10.2 7.4-10.4 fL Sodium Level 143 136-145 mmol/L Potassium Level 3.5 3.5-5.1 mmol/L Chloride Level 109 98-107 mmol/L Carbon Dioxide Level 27 21-32 mmol/L Anion Gap 7.0 3-11 mmol/L Blood Urea Nitrogen 4 7-18 mg/dl Creatinine 0.55 0.60-1.20 mg/dl Est Creatinine Clear Calc Drug Dose 107.9 ml/min Estimated GFR () 116.5 Estimated GFR (Non- 100.5 BUN/Creatinine Ratio 6.5 10-20 Random Glucose 102 70-99 mg/dl Calcium Level 8.2 8.5-10.1 mg/dl Total Bilirubin 0.3 0.2-1 mg/dl Aspartate Amino Transf (AST/SGOT) 12 15-37 U/L Alanine Aminotransferase (ALT/SGPT) 18 12-78 U/L Alkaline Phosphatase 72 45-117 U/L Troponin I < 0.015 0-0.045 ng/ml Total Protein 5.7 6.4-8.2 gm/dl Albumin 2.6 3.4-5.0 gm/dl Globulin 3.1 2.5-4.0 gm/dl Albumin/Globulin Ratio 0.8 0.9-2 Assessment & Plan the surgery is canceled, pt understood, I answered all questions, F/U me on clinic in 1 week, please call me if any questions, Thanks. 01/29/2018 tropine is negative pt wants to do laparoscopic cholecystectomy today, D/W benefits, risks and alternatives of the procedure, the risks -infection, bleeding, injury CBD, bowel , may need ERCP, possible open or cholangiogram, CA, DVT, stroke, , pt and her family members understood, they agree with the surgery. I answered all questions, 01/30/2018 pt can be discharged home today, keep the dressing on for 4 days, she can take a shower on 02/03/2018, F/U Dr. Jones 1 week, the surgery is canceled, pt understood, I answered all questions, F/U me on clinic in 1 week, please call me if any questions, Thanks. 01/29/2018 tropine is negative pt wants to do laparoscopic cholecystectomy today, D/W benefits, risks and alternatives of the procedure, the risks -infection, bleeding, injury CBD, bowel , may need ERCP, possible open or cholangiogram, CA, DVT, stroke, , pt and her family members understood, they agree with the surgery. I answered all questions,
[2018-01-30 06:52] LABS: BASO % 0.1 %; BASO ABS # 0.01 K/uL (0-0.2); HEMATOCRIT 39.9 % (37-47); HEMOGLOBIN 13.1 g/dL (12.0-16.0); IG# 0.01 K/uL (0.00-0.02); LYMPH % 25.5 %; LYMPH ABS # 1.98 K/uL (1.2-3.4); MEAN CELL VOLUME 91.7 fL (80-100); MEAN CORPUSCULAR HEMOGLOBIN 30.1 pg (25-34); MEAN CORPUSCULAR HGB CONC 32.8 g/dl (32-36); MEAN PLATELET VOLUME 10.5 fL (7.4-10.4); MONO % 6.2 %; MONO ABS # 0.48 K/uL (0.11-0.59); NEUT % 68.1 %; NEUT ABS # 5.28 K/uL (1.4-6.5); PLATELET COUNT 209 K/uL (130-400); RED CELL DISTRIBUTION WIDTH CV 12.7 % (11.5-14.5); RED CELL DISTRIBUTION WIDTH SD 42.9 fL (36.4-46.3); WHITE BLOOD COUNT 7.76 K/uL (4.8-10.8)
[2018-01-30 07:15] LABS: ALBUMIN 2.7 gm/dl (3.4-5.0); CALCIUM 8.5 mg/dl (8.5-10.1); CREATININE 0.65 mg/dl (0.60-1.20); POTASSIUM 3.5 mmol/L (3.5-5.1)
[2018-01-30 07:19] LABS: TOTAL PROTEIN 6.1 gm/dl (6.4-8.2)
[2018-01-30 07:24] VITALS: BP 126/81; PULSE 68; TEMP 36.7; O2SAT 97
--- NOTE | 2018-01-30 08:30 | Anesthesiology Progress Note ---
Anesthesia Post Op Note Date & Time Jan 30, 2018 at 08:29 Vital Signs Pain Intensity: 6.0 Vital Signs Past 12 Hours Date Time Temp Pulse Resp B/P (MAP) Pulse Ox O2 Delivery O2 Flow Rate FiO2 01/30/18 07:24 36.7 68 18 126/81 (96) 97 Room Air 01/30/18 03:57 36.7 61 16 103/59 (74) 95 Room Air 01/29/18 23:20 36.7 62 16 120/74 (89) 93 Room Air Notes Mental Status: alert / awake / arousable, participated in evaluation Pt Amnestic to Procedure: Yes Nausea / Vomiting: adequately controlled Pain: adequately controlled Airway Patency, RR, SpO2: stable & adequate BP & HR: stable & adequate Hydration State: stable & adequate Anesthetic Complications: no major complications apparent
[2018-01-30] MEDS ORDERED: OXYC-57 PO (12:12)
--- NOTE | 2018-01-30 12:17 | Consultant Recommendations ---
Animal Behaviourist Recommendations Date of Service Jan 30, 2018. Animal Behaviourist Recommendations No heavy lifting over 20 pounds for 2 weeks No strenuous activity until cleared by surgeon No submerging incisions underwater for 2 weeks (No bathing, swimming, or hot tubs) No driving while taking narcotic pain medication or until you are pain free You may shower in 4 days, sponge bath and was hair in meantime. Keep dressings clean and dry. After 4 days shower and remove outer dressings. Leave steri strips on incisions for 7 days and then remove. They may fall off on their own that is okay. Walking and light activity is encouraged to prevent blood clots from forming in legs You will be given narcotic pain medication as needed for moderate to severe pain. This medication may make you drowsy and can cause constipation. To combat constipation, you may take OTC stool softener such as Colace, drink prune juice, drink plenty of water, and daily walking. You may take extra strength Tylenol/Ibuprofen as needed for mild pain Follow up in surgical office in 1 week, please call office at [phone] to make an appointment
--- NOTE | 2018-01-30 12:32 | Discharge Instructions ---
Discharge Instructions Date of Service Jan 30, 2018. Admission Reason for Admission: Cholelithiasis Discharge Discharge Diagnosis / Problem: acute cholecystitis Discharge Goals Goal(s): Decrease discomfort, Improve function Activity Recommendations Activity Limitations: per Instructions/Follow-up section No heavy lifting over 20 pounds for 2-3 weeks No strenuous activity until cleared by surgeon No submerging incisions underwater for 2 weeks (no bathing, swimming, or hot tubs) No driving while taking narcotic pain medication or until you are pain free .Follow up with primary care provider Dr. Gallagher on 02/03 @ 2:30 PM Follow up with surgery within 1 week ( please call to schedule for the appointment) Instructions / Follow-Up Instructions / Follow-Up You may shower in 4 days, sponge bath and was hair in meantime. Keep dressings clean and dry. After 4 days shower and remove outer dressings. Leave steri strips on incisions for 7 days and then remove. They may fall off on their own that is okay. Walking and light activity is encouraged to prevent blood clots from forming in legs You will be given narcotic pain medication as needed for moderate to severe pain. This medication may make you drowsy and can cause constipation. To combat constipation, you may take OTC stool softener such as Colace, drink prune juice, drink plenty of water, and daily walking. You may take extra strength Tylenol/Ibuprofen as needed for mild pain Follow up in surgical office in 1 week, please call office at [phone] to make an appointment Current Hospital Diet Patient's current hospital diet: Low Fiber Diet Discharge Diet Recommended Diet: Regular Diet Procedures Procedures Performed: Laparoscopic Cholecystectomy Pending Studies Studies pending at discharge: yes List of pending studies: gallbladder pathology will be reviewed at follow up vist Medical Emergencies . Who to Call and When: Medical Emergencies: If at any time you feel your situation is an emergency, please call 911 immediately. . Non-Emergent Contact Non-Emergency issues call your: Primary Care Provider, Surgeon Call Non-Emergent contact if: you have a fever, temperature is above 101, your pain is not controlled, your pain is worsening, your pain is unusual for you, wound has increased drainage, wound has increased redness, wound has increased pain . "Provider Documentation" section prepared by Masha Amaya. . Geodetic Technician Recommendations Geodetic Technician Recommendations: No heavy lifting over 20 pounds for 2 weeks No strenuous activity until cleared by surgeon No submerging incisions underwater for 2 weeks (No bathing, swimming, or hot tubs) No driving while taking narcotic pain medication or until you are pain free You may shower in 4 days, sponge bath and was hair in meantime. Keep dressings clean and dry. After 4 days shower and remove outer dressings. Leave steri strips on incisions for 7 days and then remove. They may fall off on their own that is okay. Walking and light activity is encouraged to prevent blood clots from forming in legs You will be given narcotic pain medication as needed for moderate to severe pain. This medication may make you drowsy and can cause constipation. To combat constipation, you may take OTC stool softener such as Colace, drink prune juice, drink plenty of water, and daily walking. You may take extra strength Tylenol/Ibuprofen as needed for mild pain Follow up in surgical office in 1 week, please call office at [phone] to make an appointment VTE Core Measure Inpt VTE Proph given/why not?: SCD's
[2018-01-30 12:34] VITALS: BP 126/81; PULSE 68; TEMP 36.7; O2SAT 97
--- NOTE | 2018-01-30 12:44 | Progress Note ---
Medicine Progress Note Date & Time of Visit: Jan 30, 2018 at 12:39. Subjective Pt was seen and examined Sitting in chair with no distress Pt said that she feels fine she already dress to go home Tolerated diet Pain control Denies any chest pain, palpitation, dizziness and SOB Objective Last 8 Hrs Date Time Temp Pulse Resp B/P (MAP) Pulse Ox O2 Delivery O2 Flow Rate FiO2 01/30/18 12:34 36.7 68 18 97 Room Air 01/30/18 08:40 Room Air 01/30/18 07:24 36.7 68 18 126/81 (96) 97 Room Air Physical Exam: General- No acute distress Head- atraumatic Eyes- PERRL, EOMI ENT- oropharynx clear Neck- supple, no JVD Lungs- clear to auscultation Heart- regular rhythm Abdomen- Tenderness with mild palpation around surgery area Extremities- no calf tenderness Neuro- alert, oriented x 3; PERRL, EOMI Skin- warm & dry Laboratory Results: Last 24 Hours Test 01/30/18 06:25 White Blood Count 7.76 K/uL Red Blood Count 4.35 M/uL Hemoglobin 13.1 g/dL Hematocrit 39.9 % Mean Corpuscular Volume 91.7 fL Mean Corpuscular Hemoglobin 30.1 pg Mean Corpuscular Hemoglobin Concent 32.8 g/dl Platelet Count 209 K/uL Mean Platelet Volume 10.5 fL Neutrophils (%) (Auto) 68.1 % Lymphocytes (%) (Auto) 25.5 % Monocytes (%) (Auto) 6.2 % Eosinophils (%) (Auto) 0.0 % Basophils (%) (Auto) 0.1 % Neutrophils # (Auto) 5.28 K/uL Lymphocytes # (Auto) 1.98 K/uL Monocytes # (Auto) 0.48 K/uL Eosinophils # (Auto) 0.00 K/uL Basophils # (Auto) 0.01 K/uL RDW Standard Deviation 42.9 fL RDW Coefficient of Variation 12.7 % Immature Granulocyte % (Auto) 0.1 % Immature Granulocyte # (Auto) 0.01 K/uL Sodium Level 141 mmol/L Potassium Level 3.5 mmol/L Chloride Level 107 mmol/L Carbon Dioxide Level 30 mmol/L Anion Gap 4.0 mmol/L Blood Urea Nitrogen 4 mg/dl Creatinine 0.65 mg/dl Est Creatinine Clear Calc Drug Dose 91.3 ml/min Estimated GFR () 110.3 Estimated GFR (Non- 95.2 BUN/Creatinine Ratio 6.3 Random Glucose 115 mg/dl Calcium Level 8.5 mg/dl Total Bilirubin 0.4 mg/dl Aspartate Amino Transf (AST/SGOT) 22 U/L Alanine Aminotransferase (ALT/SGPT) 30 U/L Alkaline Phosphatase 80 U/L Total Protein 6.1 gm/dl Albumin 2.7 gm/dl Globulin 3.4 gm/dl Albumin/Globulin Ratio 0.8 Assessment & Plan CHOLELITHIASIS / CHOLECYSTITIS Present with RUQ abdominal pain CT abdomen showed mild gallbladder distention gallbladder U/S showed Cholelithiasis, including a nonmobile stone within the gallbladder neck. Mild gallbladder distention and trace pericholecystic fluid. On IV piperacillin/tazobactam Continue IVF and pain management Surgery on board Pt has a functional capacity with a METS greater than 4 and schedule for a moderate risk procedure Denies any chest pain, palpitation, dizziness and SOB Echo showed normal EF with no wall abnormality Surgical risks discussed with pt by the surgical team Pt is medical stable to proceed with surgery 3/2 S/p Laparoscopic Cholecystectomy day#1 No post-op complication continue pain control surgery on board Tolerated diet Follow up with Surgery in 1 week Ok from surgery standpoint to discharge home ECHO Normal LV chamber size and wall thickness. * Normal LV systolic function, EF 65-70%. * No segmental left ventricular wall motion abnormalities are noted. * Grade I diastolic dysfunction. * Aortic valve sclerosis mild, without significant aortic valvular stenosis. HISTORY OF HYPOTHYROIDISM Levothyroxine was discontinued few months ago TSH WNL Stable VTE PROPHYLAXIS SCDS (schedule for possible surgery) Ambulate. DISPOSITION Discharge home today Follow up with primary care provider Dr. Gallagher on 02/03 @ 2:30 PM Follow up with surgery within 1 week ( please call to schedule for the appointment) Current Inpatient Medications: Current Inpatient Medications Medications (Trade) Dose Ordered Sig/Marbin Route Start Time Stop Time Status Last Admin Dose Admin Ioversol (Optiray 320) 100 ml UD PRN IV 01/27/18 14:15 01/31/18 14:14 Ondansetron HCl (Zofran Inj) 4 mg Q6H PRN IV 01/27/18 18:00 02/26/18 17:59 01/29/18 13:48 4 MG Dextrose/Lactated Ringer's 1,000 ml @ 80 mls/hr [id number] IV 01/27/18 18:30 02/26/18 18:29 01/30/18 02:45 150 MLS/HR Hydromorphone HCl (Dilaudid Inj) 0.5 mg Q3H PRN IV 01/27/18 18:30 02/10/18 18:29 01/28/18 04:00 0.5 MG Hydromorphone HCl (Dilaudid Inj) 1 mg Q3H PRN IV 01/27/18 18:30 02/10/18 18:29 Acetaminophen (Tylenol Tab) 650 mg Q8H PRN PO 01/28/18 14:30 02/27/18 14:29 01/29/18 19:24 650 MG Tramadol HCl (Ultram Tab) not relieved ... Q6H PRN PO 01/28/18 22:00 02/27/18 21:59 01/29/18 22:09 50 MG Oxycodone/ Acetaminophen (Percocet 5-325mg Tab) 1 tab Q4H PRN PO 01/29/18 13:45 02/12/18 13:44 01/30/18 07:10 1 TAB Oxycodone/ Acetaminophen (Percocet 5-325mg Tab) 2 tab Q4H PRN PO 01/29/18 13:45 02/12/18 13:44
--- NOTE | 2018-02-02 07:43 | Discharge Summary ---
Discharge Summary Date of Service Feb 02, 2018. Discharge Summary Admission Date: Jan 27, 2018 at 17:54 Discharge Date: Jan 30, 2018 Discharge Disposition: Home Principal Diagnosis: CHOLELITHIASIS / CHOLECYSTITIS Secondary Diagnoses/Problems: HISTORY OF HYPOTHYROIDISM Procedures: S/p Laparoscopic Cholecystectomy ABDOMINAL ULTRASOUND, RIGHT UPPER QUADRANT HISTORY: Tenderness to palpation within the right upper quadrant. COMPARISON: CT of the abdomen and pelvis performed earlier today. FINDINGS: There is no biliary ductal dilatation. The gallbladder is mildly distended. There is trace pericholecystic fluid. A nonmobile stone within the gallbladder neck is noted. No sonographic Negrete sign was reported. The pancreas is unremarkable by sonography. There is no right hydronephrosis. There may be fatty infiltration of the liver. IMPRESSION: 1. Cholelithiasis, including a nonmobile stone within the gallbladder neck. Mild gallbladder distention and trace pericholecystic fluid. No gallbladder wall thickening. No sonographic Negrete sign. If clinical suspicion for acute cholecystitis, a hepatobiliary scan could be obtained. 2. No biliary ductal dilatation. 3. Fatty liver. Electronically signed by: Lewis Rosas M.D. 01/27/2018 4:13 PM Dictated Date/Time: 01/27/2018 4:[address] ABD/PELVIS IV CONTRAST ONLY CLINICAL HISTORY: Epigastric abdominal pain COMPARISON STUDY: None. TECHNIQUE: Following the IV administration of 94 mL of Optiray-320, CT scan of the abdomen and pelvis was performed from the lung bases to the proximal femurs. Images are reviewed in the axial, sagittal, and coronal planes. IV contrast was administered without complication. A dose lowering technique was utilized adhering to the principles of ALARA. CT DOSE: 579.91 mGy.cm FINDINGS: Lower chest: There are minor dependent atelectatic changes. Liver: There is mild hepatic steatosis. No focal masses are visualized. Gallbladder: The gallbladder is minimally distended. There is no gallbladder wall thickening. There is no ductal dilatation. If there is clinical concern the presence of acute gallbladder disease, a nuclear medicine hepatobiliary study could be obtained in follow-up. Spleen: Normal in size and attenuation. Pancreas: Unremarkable. Adrenal glands: Unremarkable. Kidneys: There is symmetric renal cortical enhancement. The kidneys are normal in size without hydronephrosis. Bowel: There are no transition zones indicate bowel obstruction. There is no acute diverticulitis. There is no evidence of acute appendicitis. Peritoneum: There is no intraperitoneal free air or abdominal ascites. There is a tiny fat-containing umbilical hernia. Vasculature: The abdominal aorta is normal in course and caliber. Adenopathy: None. Pelvic viscera: The uterus appears surgically absent Skeletal structures: Postsurgical changes are present within the lumbar spine IMPRESSION: 1. No evidence of bowel obstruction. No evidence of free air 2. No evidence of acute diverticulitis. No evidence of acute appendicitis 3. Mild gallbladder distention Electronically signed by: Salvatore Montyoa M.D. 01/27/2018 3:23 PM Dictated Date/Time: 01/27/2018 3:18 PM Medication Reconciliation New Medications: Oxycodone/Acetaminophen 5MG/325MG (Percocet 5MG/325MG) Tab 1 TABLET PO Q4H PRN for Pain, #18 TAB Continued Medications: Pantoprazole (Protonix) 40 Mg Tab 40 MG PO DAILY, #30 TAB Ranitidine (Zantac) 300 Mg Tab 300 MG PO HS, TAB Zolpidem Tartrate (Ambien) 5 Mg Tab 5 MG PO HS PRN for Insomnia Admission Information HPI (per Admitting provider): 62-year-old female followed by Dr. Gallagher. She enjoys relatively good health except for problems noted below. Experiencing GI upset for the past few days. Started on pantoprazole and ranitidine yesterday without improvement. This morning she developed severe epigastric pain after eating breakfast that included eggs. Pain was rated as 10 out of 10. It was associated with nausea and vomiting No hematemesis, melena, hematochezia. Noticed some chills, but no fever. Tried simethicone without relief. . Physical Exam (per Admitting): Constitutional- vital signs as noted above; well-developed well-nourished ; no distress Eyes- PERRL; sclerae anicteric; conjunctivae clear ENT-external examination of ears and nose are unremarkable; hearing grossly intact; oropharynx clear Neck-no masses; trachea midline; no thyromegaly or thyroid masses Lungs- clear to auscultation and percussion; no respiratory distress Cardiovascular- RRR; no murmur; no gallop; no JVD; no pretibial edema; pedal pulses intact Abdomen-quiet bowel sounds; nondistended; right upper quadrant tenderness with guarding, but no rebound; no palpable masses or hepatosplenomegaly Extremities- no cyanosis; no calf tenderness Musculoskeletal- neck supple; examination extremities unremarkable Neuro- alert, oriented; PERRL, EOMI, no facial palsy; no dysarthria; motor strength upper and lower extremities grossly intact Psychiatric-normal affect Skin- warm & dry . Hospital Course CHOLELITHIASIS / CHOLECYSTITIS Present with RUQ abdominal pain CT abdomen showed mild gallbladder distention gallbladder U/S showed Cholelithiasis, including a nonmobile stone within the gallbladder neck. Mild gallbladder distention and trace pericholecystic fluid. On IV piperacillin/tazobactam Continue IVF and pain management Surgery on board Pt has a functional capacity with a METS greater than 4 and schedule for a moderate risk procedure Denies any chest pain, palpitation, dizziness and SOB Echo showed normal EF with no wall abnormality Surgical risks discussed with pt by the surgical team Pt is medical stable to proceed with surgery 3/2 S/p Laparoscopic Cholecystectomy day#1 No post-op complication continue pain control surgery on board Tolerated diet Follow up with Surgery in 1 week Ok from surgery standpoint to discharge home ECHO Normal LV chamber size and wall thickness. * Normal LV systolic function, EF 65-70%. * No segmental left ventricular wall motion abnormalities are noted. * Grade I diastolic dysfunction. * Aortic valve sclerosis mild, without significant aortic valvular stenosis. HISTORY OF HYPOTHYROIDISM Levothyroxine was discontinued few months ago TSH WNL Stable VTE PROPHYLAXIS SCDS (schedule for possible surgery) Ambulate. DISPOSITION Discharge home today Follow up with primary care provider Dr. Gallagher on 02/03 @ 2:30 PM Follow up with surgery within 1 week ( please call to schedule for the appointment) Total time spent on discharge = 35 minutes This includes examination of the patient, discharge planning, medication reconciliation, and communication with other providers. Discharge Instructions Discharge Instructions Date of Service Jan 30, 2018. Admission Reason for Admission: Cholelithiasis Discharge Discharge Diagnosis / Problem: acute cholecystitis Discharge Goals Goal(s): Decrease discomfort, Improve function Activity Recommendations Activity Limitations: per Instructions/Follow-up section No heavy lifting over 20 pounds for 2-3 weeks No strenuous activity until cleared by surgeon No submerging incisions underwater for 2 weeks (no bathing, swimming, or hot tubs) No driving while taking narcotic pain medication or until you are pain free .Follow up with primary care provider Dr. Gallagher on 02/03 @ 2:30 PM Follow up with surgery within 1 week ( please call to schedule for the appointment) Instructions / Follow-Up Instructions / Follow-Up You may shower in 4 days, sponge bath and was hair in meantime. Keep dressings clean and dry. After 4 days shower and remove outer dressings. Leave steri strips on incisions for 7 days and then remove. They may fall off on their own that is okay. Walking and light activity is encouraged to prevent blood clots from forming in legs You will be given narcotic pain medication as needed for moderate to severe pain. This medication may make you drowsy and can cause constipation. To combat constipation, you may take OTC stool softener such as Colace, drink prune juice, drink plenty of water, and daily walking. You may take extra strength Tylenol/Ibuprofen as needed for mild pain Follow up in surgical office in 1 week, please call office at [phone] to make an appointment Current Hospital Diet Patient's current hospital diet: Low Fiber Diet Discharge Diet Recommended Diet: Regular Diet Procedures Procedures Performed: Laparoscopic Cholecystectomy Pending Studies Studies pending at discharge: yes List of pending studies: gallbladder pathology will be reviewed at follow up vist Medical Emergencies . Who to Call and When: Medical Emergencies: If at any time you feel your situation is an emergency, please call 911 immediately. . Non-Emergent Contact Non-Emergency issues call your: Primary Care Provider, Surgeon Call Non-Emergent contact if: you have a fever, temperature is above 101, your pain is not controlled, your pain is worsening, your pain is unusual for you, wound has increased drainage, wound has increased redness, wound has increased pain . "Provider Documentation" section prepared by Masha Amaya. . Internetworking Technician Recommendations Internetworking Technician Recommendations: No heavy lifting over 20 pounds for 2 weeks No strenuous activity until cleared by surgeon No submerging incisions underwater for 2 weeks (No bathing, swimming, or hot tubs) No driving while taking narcotic pain medication or until you are pain free You may shower in 4 days, sponge bath and was hair in meantime. Keep dressings clean and dry. After 4 days shower and remove outer dressings. Leave steri strips on incisions for 7 days and then remove. They may fall off on their own that is okay. Walking and light activity is encouraged to prevent blood clots from forming in legs You will be given narcotic pain medication as needed for moderate to severe pain. This medication may make you drowsy and can cause constipation. To combat constipation, you may take OTC stool softener such as Colace, drink prune juice, drink plenty of water, and daily walking. You may take extra strength Tylenol/Ibuprofen as needed for mild pain Follow up in surgical office in 1 week, please call office at [phone] to make an appointment VTE Core Measure Inpt VTE Proph given/why not?: SCD's Additional Copies To Guille Gallagher III, M.D.
== END 2018-01-30 12:57 | disposition home or self-care (01) | DRG 419 ==
LOC: C.EDB 13:42 → C.MSW 17:54 → ENRESERV 18:07
PROVIDERS: ADMIT Hospitalist; ATTEND Internal Medicine
PROC: 0FT44ZZ Resection of Gallbladder, Percutaneous Endoscopic Approach (ICD-10-PCS; principal; 2018-01-29 11:00)
DX: K80.10 Calculus of gallbladder with chronic cholecystitis without obstruction (principal); R94.31 Abnormal electrocardiogram [ECG] [EKG]; E66.9 Obesity, unspecified; Z68.34 Body mass index [BMI] 34.0-34.9, adult; Z86.39 Personal history of other endocrine, nutritional and metabolic disease; Z87.891 Personal history of nicotine dependence; Z88.2 Allergy status to sulfonamides; Z83.79 Family history of other diseases of the digestive system; Z82.49 Family history of ischemic heart disease and other diseases of the circulatory system

== ENCOUNTER 2018-06-26 09:07 | Inpatient (IN) | payer OTHER ==
[2018-05-29 08:38] VITALS: BMI 34.0
--- NOTE | 2018-06-08 08:42 | PAT Medication Instructions ---
Service Date Jun 08, 2018. Current Home Medication List Tramadol (Ultram), 50 MG PO UD PRN for Pain Zolpidem Tartrate (Ambien), 5 MG PO HS PRN for Insomnia [Antibiotic ], Unknown Dose PO UD Medication Instructions For Your Scheduled Surgery - Take the following medications the morning of surgery with a sip of water: Tramadol (Ultram), 50 MG PO UD PRN for Pain (okay to take up to 4 hours prior to surgery if needed) - Take the following medications as scheduled the night before surgery: Tramadol (Ultram), 50 MG PO UD PRN for Pain (if needed) Zolpidem Tartrate (Ambien), 5 MG PO HS PRN for Insomnia (if needed) If you have any questions please call us at [phone] or [phone] or [phone]
--- NOTE | 2018-06-24 13:08 | HISTORY & PHYSICAL EXAMINATION ---
DATE OF ADMISSION: 06/26/2018 PREOPERATIVE DIAGNOSIS: Primary osteoarthritis of the left knee. HISTORY OF PRESENT ILLNESS: Andrade is a pleasant 62-year-old female who underwent a right knee arthroscopy about 18 months ago. She had some arthritis in her knee at that time. She is still having some right knee pain. Unfortunately, left knee pain has been even worse. X-rays do show [id number] arthritis of her left knee. I sent her for an MRI and the MRI showed advanced osteoarthritis with some small loose bodies and a large effusion. She still has trouble doing simple activities and at times her pain can be excruciating. She has elected to proceed with a left total knee arthroplasty. PAST MEDICAL HISTORY: Significant for mitral valve prolapse and osteoarthritis. PAST SURGICAL HISTORY: Significant for cholecystectomy, hysterectomy, lumbar fusion, right knee arthroscopy 18 months ago, thumb and middle finger trigger finger releases and a tonsillectomy. ALLERGIES: SULFA. MEDICATIONS: Include Tramadol and Ambien. FAMILY HISTORY: Significant for heart disease and stroke. SOCIAL HISTORY: Patient is . She rarely drinks. She does little activity now mostly because of her pain. REVIEW OF SYSTEMS: She complains mostly of left knee pain. All other pertinent review of systems are negative. PHYSICAL EXAMINATION: GENERAL: She is awake, alert and oriented x3. She is in no apparent distress. She is very pleasant. HEENT: Pupils are equal, round, reactive to light. Extraocular motion is intact. Oral mucosa is pink and moist. HEART: Regular rate per radial pulse. LUNGS: Annika symmetrically bilaterally with no audible breath sounds. ABDOMEN: Soft, nontender, nondistended. MUSCULOSKELETAL: On physical examination of the left knee, she has severe tenderness to palpation along the medial joint line and over the distal medial femoral condyle. She has mild pain laterally and mild pain in the patellofemoral joint. She has good motion from 0-125 degrees. She has no instability. She has a trace effusion on exam. X-rays of the left knee do show [id number] osteoarthritis mostly involving the medial compartment and the patellofemoral joint. MRI of the knee does show tricompartmental arthritis and also some small loose bodies in the anterior aspect of the knee. IMPRESSION: Primary osteoarthritis of the left knee. PLAN: We will proceed with a Biomet Vanguard left total knee arthroplasty. Postoperatively, she will be started on aspirin for DVT prophylaxis and kept in the hospital for postoperative medical management. She plans to be discharged to home with outpatient physical therapy at [facility] in [place].
[2018-06-26] VITALS (8 sets, daily range): BP systolic 107–142; BP diastolic 64–79; PULSE 72–88; TEMP 36.5–36.8; O2SAT 95–99; Ht 157.5 cm; Wt 85.0 kg
[~2018-06-26] VITALS: Ht 157.5 cm; Wt 85.0 kg
[2018-06-26] MEDS: TRANEXAMIC ACID INJ 1,000 MG x 2 Bags IV SCH ×4 (06:30→11:45)
[~2018-06-26 09:07] MED LIST changes: +ACETAMINOPHEN 500 MG TAB PO SCH; +ATROPINE SULFATE 0.1 MG/ML 5ML SYR IV PRN; +BUPIVACAINE 0.5 % 5 MG/1 ML PF 10ML VIAL ONE; +CEFAZOLIN 2000MG IV PUSH 15 ML IV SCH; -DICL-201 PO; +EpHEDrine SULFATE INJ 50 MG/ML AMP IV PRN; +FAMOTIDINE 20 MG TAB PO SCH; +FENTANYL CITRATE INJ 50 MCG/1 ML 2 ML VIAL IV PRN; +FLUMAZENIL 0.1 MG/1 ML 10 ML VIAL IV PRN; +GABAPENTIN 600 MG PO SCH; +HYDROmorphone INJ 2 MG/ML SYR/VIAL IV PRN; +LABETALOL HCL IV 5 MG/ML 20ML IV PRN; +LACTATED RINGER'S 1000ML 1,000 ML IV SCH; +LACTATED RINGER'S 1000ML 500 ML IV SCH; +LACTATED RINGER'S 1000ML IV SCH; -LEVO25TA5 PO; +MEPERIDINE HCL 25 MG/ML CARP IV PRN; +NALOXONE HCL 0.4 MG/1 ML VIAL/CARP IV PRN; +ONDANSETRON INJ 2 MG/ML 2 ML VIAL IV PRN; +PHENYLEPHRINE 100MCG/ML 5ML SYR IV PRN; +ROPIVACAINE 0.5% 5 MG/ML 30 ML VIAL ONE; +ROPIVACAINE 5MG/ML 30 ML 150 MG, BUPIVACAINE 0.5% MPF INJ 30 ML, EpINEphrine HCL INJ 0.... INFIL SCH; +TRAM-10 PO
[2018-06-26] MEDS ORDERED: MIDAZOLAM HCL 1 MG/ML 2ML VIAL ONE ×2 (11:01→11:51)
[2018-06-26] MEDS ORDERED: FENTANYL CITRATE INJ 50 MCG/1 ML 2 ML VIAL ONE (11:02)
[2018-06-26] MEDS ORDERED: BACITRACIN 50000 UNIT VIAL ONE (11:46)
[2018-06-26] MEDS ORDERED: ORTHO JOINT ANESTHETIC ONE (11:46)
--- NOTE | 2018-06-26 13:27 | [facility] Post Operative Brief Note ---
Immediate Operative Summary Operative Date Jun 26, 2018. Pre-Operative Diagnosis Primary osteoarthritis of the left knee Post-Operative Diagnosis Primary osteoarthritis of the left knee Procedure(s) Performed Left Total Knee Arthroplasty Surgeon Dr. Santamaria Hand Drawer In Surgeon(s) Kory Amador PA-C Estimated Blood Loss 50 cc Findings Consistent with Post-Op Diagnosis Specimens A: Left knee bone and tissue Anesthesia Type MAC [facility]
[2018-06-26] MEDS ORDERED: ONDANSETRON INJ 2 MG/ML 2 ML VIAL IV PRN (13:30)
[2018-06-26] MEDS ORDERED: MoRPHine SULFATE 2 MG/ML CARP IV PRN (13:30)
[2018-06-26] MEDS ORDERED: ZOLPIDEM TARTRATE 5 MG TAB PO PRN (13:30)
[2018-06-26] MEDS ORDERED: METOCLOPRAMIDE HCL INJ 5 MG/ML 2 ML VIAL IV PRN (13:30)
[2018-06-26] MEDS ORDERED: MAGNESIUM HYDROXIDE SUSP 30 ML UDC PO PRN (13:30)
[2018-06-26] MEDS ORDERED: SOD PHOSPHATE/SOD BIPHOSPHATE ENEMA 132 ML BTL PR PRN (13:30)
[2018-06-26] MEDS ORDERED: BISACODYL 10 MG SUPP PR PRN (13:30)
[2018-06-26] MEDS ORDERED: DiphenhydrAMINE HCL 50 MG/ML VIAL ONE (13:31)
[2018-06-26] MEDS ORDERED: PROPOFOL IV EMULSION 10 MG/ML 20 ML VIAL ONE (13:31)
[2018-06-26] MEDS ORDERED: LIDOCAINE HCL 2% 2 ML VIAL (20MG/ML) ONE (13:31)
--- NOTE | 2018-06-26 13:49 | OPERATIVE REPORT ---
DATE OF OPERATION: 06/26/2018 PREOPERATIVE DIAGNOSIS: Primary osteoarthritis of the left knee. POSTOPERATIVE DIAGNOSIS: Primary osteoarthritis of the left knee. PROCEDURE: Left total knee arthroplasty. SURGEON: Dr. Eladio Santamaria. TURNTABLE WORKER: Natalio Amador PA-C, whose assistance was necessary for retraction and closure. ANESTHESIA: Spinal with a left adductor nerve block. COMPLICATIONS: None. CONDITION: Stable to PACU. IMPLANTS USED: I used a Biomet Vanguard left total knee arthroplasty with a size 62.5 left femur, 67 tibia, a size 10 posterior stabilized bearing and a 31 mm patella. All components were cemented with Palacos-G cement. INDICATIONS: Andrade is a pleasant 62-year-old female who has been complaining of chronic left knee pain. I did a knee arthroscopy on her which confirmed osteoarthritis of the knee. After failing extensive conservative treatment, she elected to proceed with a left total knee arthroplasty. OPERATION AND FINDINGS: On 06/26/2018, she arrived at [facility] for the above procedure. She was seen in the preoperative holding and the operative extremity was identified and signed. She was given preoperative antibiotic and a left adductor nerve block. She was also given a spinal anesthetic. She was taken back to the operating room, laid on the table in supine position and given basic sedation. The left knee was then prepped and draped in sterile fashion. Time-out was done. The patient's operative extremity was properly identified. A midline incision was made directly over the patella. Dissection was taken down to the extensor mechanism and a medial parapatellar arthrotomy was used. The medial retinaculum was released. The ACL, PCL and meniscus were removed. The knee was then flexed. A drill was sent down the center of the femoral canal followed by an intramedullary dulce. Off that dulce, a distal femoral cutting block was placed. A 12 mm was resected off at the distal femur at 5 degrees of valgus. The distal femur was then measured with a posterior referencing guide. The femur measured to be a size 62.5. Two drill holes were placed in 3 degrees of external rotation. A 4-in-1 cutting block was then impacted into place. Anterior, posterior and chamfer cuts were then made. The box cutting guide was then impacted into place and the box was resected for the posterior stabilizing component. The proximal tibia was then exposed. A drill was sent down the center of the tibial canal followed by an intramedullary dulce. Off that dulce, a proximal tibial resection guide was placed and 4 mm was resected off the low medial side. The tibia measured to be a size 67. It was set in the appropriate rotation and punched. The posterior aspect of the knee was then opened up and any additional meniscal fragments were removed and posterior osteophytes. Trial components were then placed as well as a size 10 posterior stabilized poly. The knee was brought through a full range of motion and felt to be stable. The patella was then everted and 8.5 mm was resected off the posterior aspect of the patella. A size 31 mm patella was a right fit and 3 peg holes were drilled. All trial components were then removed. Surrounding soft tissues were injected with 100 mL of an orthopedic pain control cocktail. All components were then cemented in place with Palacos G cement and a size 10 posterior stabilizing bearing was snapped into place and the anterior bar was locked. The knee was then irrigated with 3 liters normal saline solution with bacitracin. The tourniquet was deflated and hemostasis was controlled. The extensor mechanism was then closed with #1 Vicryl suture in the superior and inferior aspects and #2 FiberWire suture at the superior medial aspect. The knee was brought through a full range of motion and felt stable. The skin was closed with 2-0 Vicryl, 3-0 V-Loc suture and chilango. She was then placed in a soft compressive dressing and taken to the postanesthesia care unit in stable condition. She tolerated the procedure well. I attest to the content of the Intraoperative Record and any orders documented therein. Any exception s are noted below.
--- NOTE | 2018-06-26 14:19 | Anesthesiology Progress Note ---
Anesthesia Post Op Note Date & Time Jun 26, 2018 at 14:18 Vital Signs Pain Intensity: 0 Vital Signs Past 12 Hours Date Time Temp Pulse Resp B/P (MAP) Pulse Ox O2 Delivery O2 Flow Rate FiO2 06/26/18 14:15 36.2 79 16 114/64 100 Nasal Cannula 3 06/26/18 14:05 84 16 111/64 100 Nasal Cannula 3 06/26/18 13:55 81 16 119/66 99 Nasal Cannula 3 06/26/18 13:45 36.0 94 16 117/63 95 Nasal Cannula 4 06/26/18 09:35 36.7 88 20 142/79 96 Room Air Notes Mental Status: alert / awake / arousable, participated in evaluation Pt Amnestic to Procedure: Yes Nausea / Vomiting: adequately controlled Pain: adequately controlled Airway Patency, RR, SpO2: stable & adequate BP & HR: stable & adequate Hydration State: stable & adequate Neuraxial Anesthesia: was administered, sensory block is resolving Anesthetic Complications: no major complications apparent
--- NOTE | 2018-06-26 14:30 | DIAGNOSTIC IMAGING REPORT ---
L KNEE 1 OR 2 VIEWS ROUTINE HISTORY: 62 years-old Female AP/LATERAL IN PACU LEFT KNEE left knee total joint arthroplasty. Degenerative joint disease. COMPARISON: Bilateral knee radiographs 03/24/2018 TECHNIQUE: 2 views of the left knee FINDINGS: Postoperative changes from recent left knee total joint arthroplasty and patellar resurfacing. Anterior midline skin chilango are noted. Expected postsurgical soft tissue swelling and deep tissue air. Alignment is satisfactory. No acute fracture or retained foreign body. IMPRESSION: Left knee total joint arthroplasty and patellar resurfacing without complication identified. The above report was generated using voice recognition software. It may contain grammatical, syntax or spelling errors. Electronically signed by: Gerhard Siddiqi M.D. 06/26/2018 2:29 PM Dictated Date/Time: 06/26/2018 2:28 PM
[2018-06-26] MEDS: KETOROLAC TROMETHAMINE 30 MG/ML VIAL IV. SCH ×2 (15:24→20:58)
[2018-06-26] MEDS: ACETAMINOPHEN 500 MG TAB PO SCH (18:16)
[2018-06-26] MEDS: TRAMADOL HCL 50 MG TAB PO PRN (19:29)
[2018-06-26] MEDS: CEFAZOLIN IV 2,000 MG in SYRINGE 0 ML IV SCH (20:56)
[2018-06-26] MEDS: SODIUM CHLORIDE 0.9% 1000ML 1,000 ML IV SCH (20:57)
[2018-06-26] MEDS: DOCUSATE SODIUM 100 MG CAP PO SCH (20:59)
[2018-06-26] MEDS: ASPIRIN 325 MG ECTAB PO SCH (20:59)
[2018-06-26] MEDS ORDERED: SENNA 8.6 MG TAB PO SCH (21:00)
[2018-06-27] MEDS: ACETAMINOPHEN 500 MG TAB PO SCH ×2 (02:58→10:53)
[2018-06-27] MEDS: KETOROLAC TROMETHAMINE 30 MG/ML VIAL IV. SCH ×2 (02:58→09:06)
[2018-06-27] MEDS: CEFAZOLIN IV 2,000 MG in SYRINGE 0 ML IV SCH (02:58)
[2018-06-27] MEDS: SODIUM CHLORIDE 0.9% 1000ML 1,000 ML IV SCH ×2 (02:59→10:45)
[2018-06-27 04:08] VITALS: BP 113/77; PULSE 67; TEMP 36.5; O2SAT 97
[2018-06-27] MEDS: TRAMADOL HCL 50 MG TAB PO PRN (06:33)
[2018-06-27 06:36] LABS: HEMATOCRIT 38.6 % (37-47); HEMOGLOBIN 12.1 g/dL (12.0-16.0); MEAN CELL VOLUME 93.2 fL (80-100); MEAN CORPUSCULAR HEMOGLOBIN 29.2 pg (25-34); MEAN CORPUSCULAR HGB CONC 31.3 g/dl (32-36); MEAN PLATELET VOLUME 10.7 fL (7.4-10.4); PLATELET COUNT 186 K/uL (130-400); RED CELL DISTRIBUTION WIDTH CV 13.2 % (11.5-14.5); RED CELL DISTRIBUTION WIDTH SD 45.1 fL (36.4-46.3); WHITE BLOOD COUNT 10.23 K/uL (4.8-10.8)
[2018-06-27 06:42] VITALS: BP 130/84; PULSE 75; TEMP 36.7; O2SAT 97
[2018-06-27 07:04] LABS: CALCIUM 8.7 mg/dl (8.5-10.1); CREATININE 0.75 mg/dl (0.60-1.20); POTASSIUM 4.3 mmol/L (3.5-5.1)
[2018-06-27 07:30] VITALS: O2SAT 97
[2018-06-27 08:05] VITALS: BP 124/76; PULSE 71; TEMP 36.7; O2SAT 96
[2018-06-27] MEDS ORDERED: TRAM-10 PO (08:34)
[2018-06-27] MEDS ORDERED: ASPEC325 PO (08:34)
--- NOTE | 2018-06-27 08:35 | Discharge Instructions ---
Discharge Instructions Date of Service Jun 27, 2018. Admission Reason for Admission: Left Knee Degenerative Joint Disease Discharge Discharge Diagnosis / Problem: Left Total Knee Discharge Goals Goal(s): Decrease discomfort, Improve function Activity Recommendations Activity Limitations: as noted below . Instructions / Follow-Up Instructions / Follow-Up Activity and Therapy Recommendations: * If you are using [facility] then Physical Therapy will be provided until they feel you are ready to start Outpatient Physical Therapy. If you are not using a Home Health agency then Outpatient Physical Therapy should start about 3-5 days from your day of surgery. Therapy will last about 6-10 weeks * It is important not to put a pillow under your knee when you are relaxing or sleeping. It is just as important to make sure you are getting your knee perfectly straight as it is to regain your knee bend. * You were shown a series of exercises in the hospital. Do these exercises three times each day including the exercises you were shown in physical therapy. * Get up and walk several times each day. For the first four weeks, try not to stand or walk for more than one hour at a time. If you do stand or walk for more than one hour, you will not hurt anything, but your leg will likely swell. * As you feel comfortable, you may change from the walker or crutches to a cane and then to independent walking. Medications: * Narcotic You will likely be sent home from the hospital with a prescription for the narcotic pain medication that worked best throughout your stay. * Aspirin Most patients will be required to take Aspirin 325mg twice a day for 6 weeks after surgery. This is obtained [id number] and a prescription is not necessary. * Other medications may be prescribed for specific circumstances. If you have any questions, please call the office at . * Resume previous home medications unless otherwise instructed TEDs/Elastic Stockings: The white elastic stockings help limit swelling and prevent blood clots from forming in your legs.~ The more you wear them, the more they work. Wear them for six weeks. Dressing Care: If the incision is not draining then you may leave the chilango open to air. If there is a little bit of drainage or if the chilango are getting stuck on your clothing then cover the incision with a dry dressing. The chilango will be removed at your 2 week follow-up appointment. Showering: You may shower 5 days from the day of surgery. Let the soapy shower water run over the chilango and pat them dry. Do not scrub or soak the incision. Things To Watch For: * Drainage from the incision site that occurs more than one week after your surgery. * Increased redness at the incision site. * Fever above 102 degrees Fahrenheit. * Unusual chest pain or shortness of breath. * Call [facility] at with any of the above problems Follow-Up Visit: Follow-up with Dr. Santamaria 2 weeks after your day of surgery. An appointment was probably scheduled when you signed-up for surgery in the office. If you have any questions call Office Instructions: More detailed instructions as well as Frequently Asked Questions were provided in a folder by our office when you signed-up for surgery. Please review these instructions when you get home. If you have any further questions or concerns, please feel free to call the office at [phone] Current Hospital Diet Patient's current hospital diet: Regular Diet Discharge Diet Recommended Diet: Regular Diet Procedures Procedures Performed: Left Total Knee Arthroplasty Pending Studies Studies pending at discharge: no Medical Emergencies . Who to Call and When: Medical Emergencies: If at any time you feel your situation is an emergency, please call [phone] immediately. . Non-Emergent Contact Non-Emergency issues call your: Surgeon Call Non-Emergent contact if: wound has increased drainage, wound has increased redness . "Provider Documentation" section prepared by Eladio Santamaria. .
[2018-06-27] MEDS ORDERED: ULT50X PO (08:56)
[2018-06-27] MEDS ORDERED: MULTIVITAMIN TAB PO SCH (09:00)
[2018-06-27] MEDS: ASPIRIN 325 MG ECTAB PO SCH (09:06)
[2018-06-27] MEDS: DOCUSATE SODIUM 100 MG CAP PO SCH (09:06)
--- NOTE | 2018-06-27 09:12 | PROGRESS NOTE ---
DATE: 06/27/2018 CHIEF COMPLAINT: Status post left total knee arthroplasty postop day #1. PROGRESS: Andrade was seen and examined at bedside today. Overall, she is doing very well. She has a little soreness in her knee, but is not too bad. She has been up and ambulating. She has no complaints. PHYSICAL EXAMINATION: LEFT KNEE: The dressing is clean and dry, did fall down a little bit and will likely need to change today. There was no drainage. Her leg is out in full extension. She has active dorsiflexion and plantarflexion of her left ankle and sensation is intact throughout. LABORATORY DATA: She has an H and H today of 12.1 and 38.6. Her vital signs are all stable on room air. She is voiding on her own. X-rays postoperatively of the left knee showed the prosthesis to be in anatomic alignment without any evidence of fracture, dislocation or loosening. IMPRESSION: Status post left total knee arthroplasty postoperative day #1. PLAN: At this point, she is doing very well and happy with her progress. She is on tramadol for pain control and aspirin for DVT prophylaxis. We plan to discharge her to home later today. She plans to go to outpatient physical therapy at [facility] in [place].
[2018-06-27 11:15] VITALS: BP 122/78; PULSE 76; TEMP 36.6; O2SAT 99
[2018-06-27 12:04] VITALS: BP 122/78; PULSE 76; TEMP 36.6; O2SAT 99
[2018-06-27] MEDS: OXYCODONE HCL IR 5 MG TAB (IMMEDIATE RELEASE) PO PRN ×2 (12:19→12:49)
--- NOTE | 2018-06-28 05:47 | DISCHARGE SUMMARY ---
DISCHARGE DIAGNOSIS: Primary osteoarthritis of the left knee. PROCEDURE: Left total knee arthroplasty on 06/26/[address] Eladio Santamaria. DISCHARGE MEDICATIONS: 1. Aspirin 325 mg twice a day for 6 weeks. 2. Ultram 50 mg as needed for pain. 3. Ambien 5 mg at night as needed. DISCHARGE INSTRUCTIONS: 1. FRANCIA hose stockings for 6 weeks. 2. Follow up with Dr. Santamaria in 2 weeks. 3. Call the office of Dr. Santamaria with any questions or concerns. HOSPITAL COURSE: Andrade is a pleasant 62-year-old female who presented to my office with complaints of chronic increasing left knee pain. She recently underwent arthroscopy, which showed primary osteoarthritis of the left knee. After failing conservative treatment, she elected to undergo a left total knee arthroplasty. On 06/26/2018, she arrived at [facility] and underwent a left knee replacement without complication. She had a spinal anesthetic and left adductor nerve block. Postoperatively, she was started on aspirin for DVT prophylaxis and discharged to general orthopedic floor. Her hospital course was uneventful. On postop day #1, her H and H were stable at 12.1 and 38.6. She was up and ambulating well with physical therapy, and her pain was well controlled. She was subsequently discharged to home on postop day #1 with outpatient physical therapy at [facility] in [place] and the above instructions.
== END 2018-06-27 14:18 | disposition home or self-care (01) | DRG 470 ==
LOC: C.ACU 09:07 → C.3E 13:31 → ENRESERV 14:03
PROVIDERS: ADMIT Orthopaedic Surgery; ATTEND Orthopaedic Surgery
PROC: 0SRD0J9 Replacement of Left Knee Joint with Synthetic Substitute, Cemented, Open Approach (ICD-10-PCS; principal; 2018-06-26 11:45)
DX: M17.12 Unilateral primary osteoarthritis, left knee (principal)

== ENCOUNTER 2019-06-21 05:53 | Observation (INO) ==
--- NOTE | 2019-06-11 12:29 | PAT Medication Instructions ---
Medication Instructions Date of Service June 11, 2019 Home Medications tramadol 50 mg PO Q6H PRN zolpidem [Ambien] 5 mg PO HS PRN Take morning of surgery With a small sip of water, OTHERWISE NOTHING TO EAT OR DRINK AFTER MIDNIGHT: tramadol 50 mg PO Q6H PRN (okay to take up to 4 hours prior to surgery if needed) Take evening before surgery tramadol 50 mg PO Q6H PRN (if needed) zolpidem [Ambien] 5 mg PO HS PRN (if needed) Other Notes If you have any questions please call us at [phone] or [phone] or [phone] or [phone]
--- NOTE | 2019-06-14 11:49 | Anesthesiology Consultation ---
Date of Service June 14, 2019 Assessment & Plan (1) Encounter for pre-operative examination: Chart Review Chart Review: Acceptable Risk for Surgery and Patient seen in Pre Admission Testing Teaching & Discussion Pre-Anesthesia Teaching/Discussion Notes: Instructed NPO after midnight before surgery,except medications with 15 cc of water. Medication instructions provided according to the PAT guidelines. History Surgery Operation Date: 06/21/19 07:30 Proposed Procedures p L2-L3, L5-S1 Decompression and Fusion, L3-L4, L4-L5 Revision Implants - Guille Harry DO Height/Weight Height: 5 ft 2 in Weight: 83.8 kg Allergies Allergy/AdvReac Type Severity Reaction Status Date / Time Sulfa (Sulfonamide Allergy Unknown RASH Verified 06/09/19 15:57 Antibiotics) Medications Home Medications Medication Instructions Recorded Confirmed Last Taken tramadol 50 mg PO Q6H PRN 06/09/19 06/09/19 Unknown zolpidem [Ambien] 5 mg PO HS PRN 06/09/19 06/09/19 Unknown Past Medical History Medical History Back problem Hiatal hernia Mitral valve prolapse Hx MVP per patient (remotely diagnosed)- mild MR per 05/2018 DSE Exercise / Class Metabolic Activity II 4-5 Yardwork/Stairs/Walk up hill Past Surgical History Surgical History History of colonoscopy History of hysterectomy History of laparoscopic cholecystectomy History of lumbar fusion History of tonsillectomy History of total left knee replacement History of trigger finger RIGHT History of urologic surgery BLADDER REPAIR Past Anesthesia History No Hx of Anesthesia Complications (except single episode nausea with angelica) and No Family Hx of Anesthesia Complications History of PONV No Hx of Motion Sickness and History of PONV (single episode nausea with angelica) Social History Smoking Status: Never smoker Do You Dip or Chew Tobacco: No Hx Alcohol Use: Yes alcohol intake frequency: holidays/special occasions only Hx Substance Use: No substance use type: does not use Review of Systems Patient denies chest pain, shortness of breath, dyspnea on exertion, reflux, cough, wheezing, palpitations. Physical Exam Vital Signs VITALS BP 113/78 P 84 TEMP 98.3 SP02 97%RA RESP 18 PHYSICAL Full neck and c-spine range of motion. Full TMJ range of motion. TMD 3 finger breaths Mallampati Score 2 Dentition: upper front right permanent implant Lungs: clear throughout to auscultation Cardiac: regular rate and rhythm, no murmurs noted Spine: normal Carotid arteries: negative bruit Extremities: no edema Testing Laboratory Results 06/14/19 12:04 06/14/19 12:04 PT 10.3 Seconds (9.0-12.0) 06/14/19 12:04 INR 1.0 (0.9-1.1) 06/14/19 12:04 APTT 25.4 Seconds (21.0-31.0) 06/14/19 12:04 Blood Type A Positive 06/14/19 12:04 Antibody Screen NEGATIVE 06/14/19 12:04 Electrocardiogram Date: 06/14/19 NSR at 75bpm. Low voltage QRS (Low voltage QRS noted on 01/2018 EKG per cardio) Chest X-Ray Date: 06/14/19 Findings: + NAD Echocardiogram Date: 01/28/18 LVEF 65-70%. No RWMA. Grade I DD. Mild AV sclerosis. Stress Test Date: 06/22/18 Type: DSE Stress ECHO/EKG negative for inducible ischemia. Single self limiting run of SVT 9 beats shortly after dobutamine initiation. Mild HK of inferior/inferoseptal bae at base. LVEF 55-59%. Mild MR. 102% MPHR.
[2019-06-14 12:21] LABS: Basophils # (auto) 0.01 K/uL (0-0.2); Basophils % (auto) 0.1 %; Eosinophils # (auto) 0.01 K/uL (0-0.5); Eosinophils % (auto) 0.1 %; Hematocrit (blood only) 43.8 % (37-47); Hemoglobin 14.3 g/dL (12.0-16.0); Immature Granulocytes # (auto) 0.01 K/uL (0.00-0.02); Immature Granulocytes % (auto) 0.1 %; Lymphocytes % (auto) 18.4 %; Mean Corpuscular Hgb Conc 32.6 g/dL (32-36); Mean Platelet Volume 10.7 fL (7.4-10.4); Monocytes # (auto) 0.38 K/uL (0.11-0.59); Neutrophils # (auto) 5.78 K/uL (1.4-6.5); Neutrophils % (auto) 76.3 %; Platelet Count 218 K/uL (130-400); RDW Standard Deviation 43.3 fL (36.4-46.3); Red Blood Count 4.76 M/uL (4.2-5.4); White Blood Count 7.59 K/uL (4.8-10.8)
--- NOTE | 2019-06-14 12:22 | XRay Report ---
XR chest Pre-admission PA/Lat CLINICAL HISTORY: pat preoperative evaluation COMPARISON STUDY: No previous studies for comparison. FINDINGS: The bones soft tissues and hemidiaphragms are normal. The cardiomediastinal silhouette is n ormal. The lungs are clear. The pulmonary vasculature is normal. IMPRESSION: Negative chest. The above report was generated using voice recognition software. It may contain grammatical, syntax or spelling errors. Electronically signed by: Enrike Abdullahi M.D. 06/14/2019 12:21 PM
[2019-06-14 12:34] LABS: Partial Thromboplastin Ratio 0.9; Partial Thromboplastin Time 25.4 Seconds (21.0-31.0); Prothrombin Time 10.3 Seconds (9.0-12.0)
[2019-06-14 14:44] LABS: BUN Creatinine Ratio 15.7 (10-20); Calcium 9.2 mg/dl (8.5-10.1); Creatinine Clr Calc Pharmacy 86.3 ml/min; Est GFR (African American) 108.4; Est GFR (Non-African American) 93.5; Potassium 4.6 mmol/L (3.5-5.1)
--- NOTE | 2019-06-18 15:07 | History and Physical Report ---
DATE OF ADMISSION: 06/21/2019 CHIEF COMPLAINT: Back, buttock, lower extremity difficulty, paresthesias, numbness and tingling. HISTORY OF PRESENT ILLNESS: Andrade is delightful. I have known her for years. She has a complicated spine problem with deformity and spinal stenosis. She is set up for elective spinal surgery. She has incapacitating back and lower extremity difficulty, numbness and tingling and burning pain. PAST MEDICAL HISTORY: Mitral valve prolapse, usual childhood diseases. No hypertension, COPD or carcinoma. PAST SURGICAL HISTORY: Tonsil, hysterectomy, bladder surgery, toe surgery, hernia repair and spinal surgery. ALLERGIES: SULFA. SOCIAL HISTORY: She is . No alcohol, tobacco. Moderate activity. Employed, works. REVIEW OF SYSTEMS: No fevers, sweats, chills. Ear, nose and throat negative. Denies chest pain, heart changes, swelling hands and feet. Denies asthma, wheezing, shortness of breath. No change in bowel habits. No nausea, vomiting. No bowel and bladder incontinence. No fevers, sweats, chills. She has back pain, lower extremity difficulty, paresthesias. MEDICATIONS: Ambien, Tylenol and Ultram. OBJECTIVE: GENERAL: She is alert, oriented, pleasant woman, well oriented, 5 feet 2 inches, 180, no terrible distress, otherwise from her spine. No chest pain or shortness of breath as stated. VITAL SIGNS: Blood pressure 130/80, pulse 80, respirations 16. HEENT: Normal. LUNGS: Clear to auscultation. No rales, rhonchi or wheezing. ABDOMEN: Soft, nontender. CARDIAC: Normal S1, S2. No S3. LUNGS: Clear to auscultation. EXTREMITIES: Intact x4, as far as her lower extremities are concerned, she has some numbness and tingling, associated weakness, blunted reflexes, weakness of quadriceps and decreased range of motion. IMAGING: X-rays demonstrate prior fusion stenosis of the spine. PLAN: Includes a laminectomy and fusion, L2-L3, L5-S1 and revision L3-L5.
[2019-06-21] MEDS ORDERED: LR 15ML/HR IV SCH (06:00)
[2019-06-21] MEDS ORDERED: ACETAMINOPHEN 1000 MG/100 ML IV IV SCH (06:00)
[2019-06-21] MEDS ORDERED: SODIUM CHLORIDE 0.9% 1,000 ML IV SCH (06:00)
[2019-06-21] MEDS ORDERED: CEFAZOLIN 2000MG 2,000 MG/15 ML SYR IV SCH (06:00)
[2019-06-21] MEDS ORDERED: BUPIVACAINE/EPINEPHRINE 0.5% MPF 1:200,000 30 ML VIAL ONE (06:57)
[2019-06-21] MEDS ORDERED: THROMBIN FOR SOLN 20000 UNIT KIT ONE (06:57)
[2019-06-21] MEDS ORDERED: VANCOMYCIN HCL 1000MG/20ML VIAL ONE (06:57)
[2019-06-21] MEDS ORDERED: GELATIN SPONGE SZ 100 ONE ×2 (06:57→08:58)
[2019-06-21] MEDS ORDERED: BACITRACIN INJ 50,000 UNIT VIAL ONE (06:58)
[2019-06-21] MEDS ORDERED: HYDROmorphone INJ 2 MG/ML SYR/VIAL ONE (07:06)
[2019-06-21] MEDS ORDERED: MIDAZOLAM HCL 1 MG/ML 2ML VIAL ONE (07:06)
[2019-06-21] MEDS ORDERED: fentaNYL citrate 100 MCG/2 ML VIAL ONE (07:06)
[2019-06-21] MEDS ORDERED: LIDOCAINE 2% JELLY 5 ML TUBE ONE (07:08)
--- NOTE | 2019-06-21 07:18 | History & Physical Bridge Note ---
Date of Service June 21, 2019 History & Physical Bridge Note I have examined the patient, reviewed the History & Physical and in the interval since the performance of the History & Physical I have noted the following changes of clinical significance: no changes noted
[2019-06-21] MEDS ORDERED: PROMETHAZINE HCL 12.5 MG in SODIUM CHLORIDE 0.9% 50 ML IV PRN (08:03)
[2019-06-21] MEDS ORDERED: ePHEDrine sulfate 50 MG/ML AMP IV PRN (08:03)
[2019-06-21] MEDS ORDERED: ATROPINE SULFATE 0.1 MG/ML 10ML SYR IV PRN (08:03)
[2019-06-21] MEDS ORDERED: LIDOCAINE HCL 2% 2 ML VIAL/AMP(20MG/ML) INFIL ONE (08:23)
[2019-06-21] MEDS ORDERED: DEXAMETHASONE SOD INJ 4 MG/ML VIAL ONE (08:23)
[2019-06-21] MEDS ORDERED: GLYCOPYRROLATE 0.2 MG/ML VIAL ONE (08:23)
[2019-06-21] MEDS ORDERED: ONDANSETRON INJ 2 MG/ML 2 ML VIAL ONE (08:23)
[2019-06-21] MEDS ORDERED: ROCURONIUM BROMIDE 10 MG/ML 5 ML VIAL ONE ×2 (08:23→10:27)
[2019-06-21] MEDS ORDERED: NEOSTIGMINE METHYLSULFATE 5 MG/5 ML SYR ONE (08:23)
[2019-06-21] MEDS ORDERED: PROPOFOL IV EMULSION 10 MG/ML 20 ML VIAL IV ONE (08:23)
[2019-06-21] MEDS ORDERED: FLOSEAL HEMOSTATIC MATRIX 10ML TOP ONE (08:29)
[2019-06-21] MEDS ORDERED: ePHEDrine sulfate 50 MG/ML SYR ONE (08:36)
[2019-06-21] MEDS ORDERED: SODIUM CHLORIDE 0.9% 250 ML IV PRN (09:35)
[2019-06-21] MEDS ORDERED: ALBUMIN HUMAN 5% 12.5 GM/250 ML VIAL IV ONE (09:48)
--- NOTE | 2019-06-21 11:32 | Post Operative Brief Note ---
Immediate Post Op Note v1 Date of Surgery June 21, 2019 Pre & Post Diagnosis Operation Date: 06/21/19 07:30 Pre-Op Diagnosis: Spinal Stenosis Post-Op Diagnosis: Spinal Stenosis Procedure Operation Date: 06/21/19 07:30 Actual Procedures p L5-S1 Decompression and Laminectomy, L2-L4 Laminectomy, Pedical Screw Instrumentation L2-S1, Removal of Pedical Screw L5 left, Interbody Fusion L5-S1, Application of DBM Putty(Not Applicable) - Guille Harry DO Surgeon Guille Harry DO Washing Machine Mechanic alea uribe Estimated Blood Loss 600 Findings Consistent with Post-Op Diagnosis Drains Fermin Catheter and Hemovac Drain Complications none Disposition Accompanied Patient To Recovery: Yes Overlapping Procedure I was immediately available: during the entire case.
[2019-06-21] MEDS: ONDANSETRON INJ 2 MG/ML 2 ML VIAL IV PRN ×2 (11:40→11:49)
[2019-06-21] MEDS: fentaNYL citrate 100 MCG/2 ML VIAL IV PRN ×2 (11:40→11:45)
--- NOTE | 2019-06-21 11:49 | Fluoroscopy Report ---
FL spine 1V any level CLINICAL HISTORY: Spinal decompression COMPARISON STUDY: CT scan dated 05/31/2019 FLUOROSCOPY TIME: 18 seconds. NUMBER OF FLUOROSCOPIC IMAGES: 2 FINDINGS: There are postsurgical changes of discectomy and interbody fusions at the L4-5 and L5-S1 le vels. There is a grade 1 spondylolisthesis of L5 on S1. There are pedicle screws present at the L2-S1 levels. There is a radiopaque structure projected over the sacrum, possibly representing a surgical drain or sponge IMPRESSION: Intraoperative fluoroscopic spot images with findings as described above Electronically signed by: Salvatore Montoya M.D. 06/21/2019 11:48 AM
[2019-06-21] MEDS: HYDROmorphone INJ 2 MG/ML SYR/VIAL IV PRN ×4 (11:50→12:05)
[2019-06-21] MEDS ORDERED: MAGNESIUM HYDROXIDE SUSP 30 ML UDC PO PRN (12:48)
[2019-06-21] MEDS ORDERED: BISACODYL 10 MG SUPP PR PRN (12:48)
[2019-06-21] MEDS ORDERED: ONDANSETRON INJ 2 MG/ML 2 ML VIAL IV PRN (12:48)
[2019-06-21] MEDS ORDERED: ZOLPIDEM TARTRATE 5 MG TAB PO PRN (12:48)
--- NOTE | 2019-06-21 12:49 | Anesthesiology Progress Note ---
Date of Service June 21, 2019 Anesthesia Post Procedure Vital Signs Vital Signs: Temp Pulse Pulse Resp BP Pulse Ox 06/21/19 12:35 85 16 114/67 99 06/21/19 12:20 85 16 111/60 99 06/21/19 12:10 36.8 C 85 16 102/68 99 06/21/19 12:00 80 16 121/64 100 06/21/19 11:50 77 16 130/68 100 06/21/19 11:40 76 16 120/63 100 06/21/19 11:31 37.0 C 71 16 117/66 100 06/21/19 06:22 36.7 C 81 20 131/81 98 Pain Intensity Lower Back: Pain Intensity: 5 Transfer of Care Handoff Completed per policy Notes Mental Status: alert / awake / arousable and participated in evaluation Patient Amnestic to Procedure: Yes Nausea / Vomiting: adequately controlled Pain: improving with treatment Airway Patency, RR, SpO2: stable & adequate BP & HR: stable & adequate Hydration State: stable & adequate Anesthetic Complications: no major complications apparent and Pt Satisfied with anesthetic care
[2019-06-21] MEDS: HYDROmorphone INJ 1 MG/ML SYRINGE IV PRN ×3 (14:44→22:28)
--- NOTE | 2019-06-21 15:23 | Operative Report ---
DATE OF OPERATION: 06/21/2019 PREOPERATIVE DIAGNOSES: 1. Spinal stenosis, L2-L3, L3-L4 lumbar spine and L5-S1 lumbar spine, 3-level lumbar spinal stenosis. 2. Instability and spondylolisthesis L5-S1 and L2-L3. POSTOPERATIVE DIAGNOSES: 1. Spinal stenosis, L2-L3, L3-L4 lumbar spine and L5-S1 lumbar spine, 3-level lumbar spinal stenosis. 2. Instability and spondylolisthesis L5-S1 and L2-L3. PROCEDURES: 1. Lumbar spine laminectomy, L2-L3, L3-L4 and L5-S1, 3-level laminectomy, foraminotomy, partial facetectomy. 2. Pedicle screw instrumentation, L2, L3, L4, L5 and sacrum bilaterally. 3. Posterior lumbar interbody fusion L5-S1. 4. Posterior lateral fusion L2, L3 and L4 and L5-S1. SURGEON: Guille Harry DO TAFE REGISTRAR: Eladio Dooley PA-C COMPLICATIONS: Zero. ESTIMATED BLOOD LOSS: 400-500 mL. IMPLANTS USED: By the [employer]. No intraoperative apparent complications or anesthetic complications. Bone graft used was a combination of structural autograft and demineralized bone matrix called DBM. Sponge and needle count correct at the close. DESCRIPTION OF PROCEDURE: The patient was identified in the preoperative area prior to being brought back to the operating room. She was placed prone. She was scrubbed, prepped, draped sterile. Formal timeout was taken. I made a skin incision, fascial incision, came down using the old implants as a guide. We were able to dissect out over the old implants, we were also able to find the facet joint up at L2-L3 of the lumbar spine, also the sacral L5 facet as well bilaterally. I carefully did a decompression laminectomy L2-L3, L3-L4, L5-S1 and used revision techniques, I used a bur, curettes, Kerrisons. We controlled bleeding as much as possible. I was pleased with that aspect. I was pleased with the decompression part of the procedure. We then instrumented the spine, safely getting pedicle screws, lumbar 2 down to the sacrum, some were old, some were new. We did this bilaterally. We used C-arm guidance and anatomic landmarks. Next, we were able to retract the dura over and do an interbody cage on the left hand side at L5-S1. We did a discectomy, completely evacuated the disc as well, packed the disc with bone graft, allograft and DBM. I put in a cage from the [employer], 26 mm in length, 10 mm in height and 10 mm in width. We then locked down the construct. We had to contour of lumbar lordotic dulce. I believe we already get the patient into roughly 20-30 degrees of lordosis. I was not able to restore anatomic lordosis. She is mildly flat versus a nice lordotic fashion. There did not seem to be any instability above the spinal implant. We locked down the construct, irrigated thoroughly with about 600 mL of fluid, placed some vancomycin over the dural structures, put in a deep Hemovac drain. Then, we bone grafted using autograft and DBM out of the transverse process of L2, L3 and L4 bilaterally and L5-S1. I was pleased with the placement of bone graft. We closed in layers as stated. Sterile dressings applied. The patient returned to PACU stable. No apparent interoperative complications through an anesthetic or spinal standpoint. I attest to the content of the Intraoperative Record and any orders documented therein. Any exception s are noted below.
[2019-06-21] MEDS: SODIUM CHLORIDE 0.9% 1000ML 1,000 ML IV SCH (16:05)
[2019-06-21] MEDS: CEFAZOLIN 2000MG 2,000 MG/15 ML SYR IV SCH ×2 (16:06→23:55)
[2019-06-21] MEDS: OXYCODONE HCL IR 5 MG TAB (IMMEDIATE RELEASE) PO PRN ×2 (16:06→20:13)
[2019-06-21] MEDS: DOCUSATE SODIUM/SENNA 50/8.6MG TAB PO SCH (20:13)
[2019-06-22] MEDS: OXYCODONE HCL IR 5 MG TAB (IMMEDIATE RELEASE) PO PRN ×5 (00:03→20:18)
[2019-06-22] MEDS: HYDROmorphone INJ 1 MG/ML SYRINGE IV PRN ×3 (01:52→23:24)
[2019-06-22] MEDS: SODIUM CHLORIDE 0.9% 1000ML 1,000 ML IV SCH (05:15)
[2019-06-22] MEDS: HYDROmorphone INJ 0.5 MG/0.5 ML SYR IV PRN ×2 (07:09→13:31)
--- NOTE | 2019-06-22 07:52 | Anesthesiology Progress Note ---
Date of Service June 22, 2019 Anesthesia Post Procedure Vital Signs Vital Signs: Temp Pulse Pulse Resp BP BP Pulse Ox 06/22/19 06:58 37.1 C 89 18 126/79 100 06/22/19 03:20 37.4 C 100 H 18 109/72 99 06/21/19 22:55 37.4 C 90 16 107/67 99 06/21/19 19:42 37.1 C 90 18 132/84 99 06/21/19 15:41 36.4 C L 90 17 118/74 94 06/21/19 14:46 89 17 99/64 L 99 06/21/19 13:17 36.6 C 99 H 17 105/66 97 06/21/19 13:11 93 H 16 101/68 100 06/21/19 12:50 36.6 C 94 H 16 119/74 100 06/21/19 12:35 85 16 114/67 99 06/21/19 12:20 85 16 111/60 99 06/21/19 12:10 36.8 C 85 16 102/68 99 06/21/19 12:00 80 16 121/64 100 06/21/19 11:50 77 16 130/68 100 06/21/19 11:40 76 16 120/63 100 06/21/19 11:31 37.0 C 71 16 117/66 100 Pain Intensity Lower Back: Pain Intensity: 7 Notes Mental Status: alert / awake / arousable and participated in evaluation Patient Amnestic to Procedure: Yes Nausea / Vomiting: adequately controlled Pain: adequately controlled Airway Patency, RR, SpO2: stable & adequate BP & HR: stable & adequate Hydration State: stable & adequate Anesthetic Complications: no major complications apparent and Pt Satisfied with anesthetic care
[2019-06-22] MEDS: ACETAMINOPHEN 1,000 MG/100 ML VIAL IV PRN ×2 (08:25→20:19)
[2019-06-22] MEDS: KETOROLAC 30 MG/ML VIAL IV SCH ×3 (11:14→23:08)
[2019-06-22] MEDS: DOCUSATE SODIUM/SENNA 50/8.6MG TAB PO SCH (20:18)
[2019-06-23] MEDS: OXYCODONE HCL IR 5 MG TAB (IMMEDIATE RELEASE) PO PRN ×5 (03:00→21:09)
[2019-06-23] MEDS: KETOROLAC 30 MG/ML VIAL IV SCH ×4 (03:55→22:16)
[2019-06-23] MEDS: HYDROmorphone INJ 1 MG/ML SYRINGE IV PRN ×4 (05:35→19:18)
--- NOTE | 2019-06-23 08:12 | Discharge Summary ---
SUBJECTIVE: She is alert and oriented this morning. She is now approximately 40 hours post reconstructive lumbar spine surgery. She has spondylolisthesis, degenerative scoliosis, severe spinal stenosis, prior surgery. She did well relatively, relatively uneventful. No shortness of breath, chest pain, no urinary tract issues. She is neurologically intact although describes some weakness and slowness to her left foot. Vital signs stable, 37 temperature, blood pressure controlled. ASSESSMENT: Status post reconstructive spine surgery, now out approximately 40 hours. PLAN: We will discharge her home this morning. Will change her dressings and she has a followup appointment in the office. She has prescriptions on her chart and instructions have been provided.
[2019-06-23] MEDS: DOCUSATE SODIUM/SENNA 50/8.6MG TAB PO SCH (21:11)
[2019-06-24] MEDS: OXYCODONE HCL IR 5 MG TAB (IMMEDIATE RELEASE) PO PRN ×3 (03:08→14:03)
[2019-06-24] MEDS: KETOROLAC 30 MG/ML VIAL IV SCH ×2 (05:21→09:38)
[2019-06-24] MEDS: HYDROmorphone INJ 1 MG/ML SYRINGE IV PRN (07:29)
[2019-06-24] MEDS: ACETAMINOPHEN 1,000 MG/100 ML VIAL IV PRN (11:23)
--- NOTE | 2019-07-03 03:53 | Discharge Summary ---
ADDENDUM She had an uneventful 24-hour stay. She was admitted and kept in the hospital because of increased pain. I thought she needed to be stabilized prior to being discharged home. She was discharged home on 06/24/2019 in improved stable condition, neurologically intact and afebrile.
--- NOTE | 2019-07-05 07:38 | Discharge Summary ---
Account ID is [id number], this is delinquent evidently. Andrade is a delightful patient. She was admitted to my service after complex spinal surgery on 06/21/2019. She is alert, oriented. She had an uneventful course. She had significant pain, appropriate pain. She stayed several days in the hospital. She was moving her bowels appropriately. Pain controlled. No shortness of breath, confusion, or chest pain, and discharged home in improved stable condition. She was given instructions, precautions in the hospital and in the office, back brace for support, and medications were provided on her chart.
== END 2019-06-24 15:10 | disposition home or self-care (01) ==
LOC: 3E 05:53 → ASU 05:53

== ENCOUNTER 2024-07-02 18:17 | Inpatient (IN) ==
[2024-07-02] MEDS: SODIUM CHLORIDE 0.9% 500 ML IV STA (18:55)
[2024-07-02] MEDS: ONDANSETRON INJ 2 MG/ML 2 ML VIAL IV STA ×2 (18:55→20:23)
[2024-07-02] MEDS: KETOROLAC TROMETHAMINE 15 MG/ML VIAL IV STA (18:55)
[2024-07-02 19:25] LABS: Appearance Urine Clear (Clear); Bilirubin Urine Negative (Negative); Blood Urine Negative (Negative); Color Urine Yellow; Glucose Urine UA Negative (Negative); Ketones Urine 2+ (Negative); Leukocyte Esterase Urine Negative (Negative); Nitrite Urine Negative (Negative); Protein Urine Negative (Negative); Specific Gravity Urine 1.014 (1.000-1.030); Urobilinogen Urine Negative (Negative)
[2024-07-02 19:31] LABS: Basophils # (auto) 0.02 K/uL (0.00-0.20); Basophils % (auto) 0.3 %; Hematocrit (blood only) 45.9 % (37.0-47.0); Hemoglobin 14.6 g/dl (12.0-16.0); Immature Granulocytes # (auto) 0.01 K/uL (0.01-0.20); Immature Granulocytes % (auto) 0.1 %; Lymphocytes # (auto) 1.61 K/uL (1.20-3.40); Lymphocytes % (auto) 21.8 %; Mean Corpuscular Hemoglobin 28.8 pg (25.0-34.0); Mean Corpuscular Hgb Conc 31.8 g/dL (32.0-36.0); Mean Corpuscular Volume 90.5 fL (80.0-100.0); Mean Platelet Volume 10.5 fL (9.4-12.4); Monocytes # (auto) 0.56 K/uL (0.11-0.59); Monocytes % (auto) 7.6 %; Neutrophils % (auto) 70.2 %; Platelet Count 237 K/uL (130-400); RDW Coefficient of Variation 14.7 % (11.5-14.5); RDW Standard Deviation 49.1 fL (36.4-46.3); Red Blood Count 5.07 M/uL (4.20-5.40)
[2024-07-02 19:42] LABS: Albumin Globulin Ratio 1.4 (0.9-2); Albumin Level 4.2 gm/dl (3.4-5.0); Bilirubin,Total 0.5 mg/dl (0.2-1.0); Calcium 9.6 mg/dl (8.6-10.3); Creatinine Clr Calc Pharmacy 108.8 ml/min; Est GFR (African American) 115.3 ml/min; Est GFR (Non-African American) 99.4 ml/min; Potassium 3.8 mmol/L (3.5-5.1); Pregnancy Test, Serum Negative (Negative); Total Protein 7.2 gm/dl (6.0-8.3)
[2024-07-02] MEDS: SODIUM CHLORIDE 0.9% 1,000 ML IV ONE (20:22)
[2024-07-02] MEDS: MoRPHine SULFATE 4 MG/ML 1 ML CARP\\VIAL IV STA ×2 (20:24→21:49)
[2024-07-02] MEDS: OPTIRAY 320 125ml IV ONE (20:31)
[2024-07-02 20:55] LABS: Troponin I High Sensitivity 3.5 pg/ml (0-14)
--- NOTE | 2024-07-02 21:29 | Emergency Department Note ---
Impression & Plan Colitis, Abdominal pain, LUQ ED Provider Note Provider: Juan Cruz MD DATE OF SERVICE: 07/02/2024 CHIEF COMPLAINT: Left upper abdominal pain HISTORY OF PRESENT ILLNESS: Patient is a 68-year-old female history of back surgeries and stenosis as well as prior cholecystectomy presenting here today reporting onset at 4 PM suddenly of some pain in the left abdomen left upper quadrant. Had something several several months ago and primarily lives in [place] now and was seen there. States she she did not require surgery but is not sure exactly what she had at that time. No trauma. No significant vomiting but has been resting some. Denies significant chest pain. Due to the severity of the pain breathing a little bit hard but denies significant shortness of breath. No syncope. No pain down the leg. No right-sided abdominal pain. Does occasionally use some pain medicine but did not today. No recent antibiotics in the last several weeks. No international travel. No other sick contacts. Did have several episodes of nonbloody diarrhea yesterday and today. PAST MEDICAL HISTORY: As noted above MEDICATIONS: Reviewed home medication list SOCIAL HISTORY: Visiting from [place] PHYSICAL EXAM: GENERAL: alert. Quite comfortable laying on her right side little bit tearful on initial evaluation Head: normocephalic and atraumatic EYES: No injection, discharge or icterus. EOMI. NECK: Trachea midline. Supple. ENT: Mucous membranes pink and moist. LUNGS: Airway patent. No retractions. Breath sounds clear HEART: Regular rate and rhythm. No significant chest wall tenderness ABDOMEN: Soft and non-tender on the right side with significant tenderness left upper quadrant. BACK: No midline tenderness, maybe some very slight left flank tenderness. SKIN: Acyanotic, warm, dry, without rashes EXTREMITIES: Without swelling, tenderness or deformity NEUROLOGICAL: No focal deficits. No aphasia. No facial droop or slurred speech. EK bpm sinus bradycardia. No PVC or PAC. No acute ST segment elevation or depression with QTc of 441. CONTINUOUS CARDIAC MONITORING: was ordered and showed a heart rate of 50s-90s bpm in normal sinus rhythm to sinus bradycardia Patient's laboratory studies and imaging reviewed. Differential includes Appendicitis, infections, diverticulitis, UTI, obstruction, mesenteric ischemia, aortic pathology, inflammatory bowel disease, renal colic, PUD, pancreatitis, biliary pathology, hernia, volvulus, constipation, PE, cardiac abnormality, spinal pathology as well as other pathologies. IMPRESSION/MEDICAL DECISION MAKING: Patient is significant discomfort even evaluation after receiving some Toradol and Zofran. Will give some doses of morphine for pain control. Initial blood work here without significant leukocytosis or anemia. No severe electrolyte abnormalities signs of renal dysfunction. No findings concerning for acute hepatitis or pancreatitis. Troponin EKG completed but location reproduces the pain does not seem that cardiac in nature. Has traveled recently as such with the CT abdomen pelvis as well as CTA of the chest to exclude PE or lung pathology will be completed. Urinalysis without findings of blood and I doubt this represents kidney stone or infection. Lactate obtained without significant elevation as well and doubt ischemic bowel. CT of the chest as well as the abdomen pelvis per radiology report nonspecific prominence of the descending colon and sigmoid colon with diverticulosis but no free air or bowel obstruction noted. CT of the chest per radiology report without PE or significant abnormality. Still significantly uncomfortable on reevaluation.. No severe diarrhea reported but given the significant pain that she is experiencing required multiple dose narcotics discussed her staying in the hospital for continued monitoring observation with her severe pain. Does not seem that consistent with C. difficile and no significant risk factors. Stool testing ordered if she is able provide a sample. Patient agreement with staying for continued observation given her severe discomfort which is now finally improving some and hospitalist was contacted. DIAGNOSIS: Colitis, abdominal pain DISPOSITION: Hospitalist will evaluate Patient was agreeable with this plan. Past Med/Surg History Problem List (Updated 07/02/24 @ 22:15 by Juan Cruz M.D.) Abdominal pain, LUQ (Acute) Colitis (Acute) Osteoarthritis of right knee Encounter for pre-operative examination Mitral valve prolapse (Chronic) Cholelithiasis Status post hysterectomy (Chronic) Status post lumbar surgery (Chronic) Status post tonsillectomy (Chronic) History of repair of hiatal hernia (Chronic) Acute calculous cholecystitis (Acute) Arthropathy of left shoulder (Chronic) Lumbar spinal stenosis (Chronic) Medical History (Updated 07/02/24 @ 22:15 by Juan Cruz M.D.) Hiatal hernia Back problem Mitral valve prolapse Hx MVP per patient (remotely diagnosed)- mild MR per 05/2018 [facility] Surgical History History of colonoscopy History of trigger finger RIGHT History of tonsillectomy History of laparoscopic cholecystectomy History of urologic surgery BLADDER REPAIR History of hysterectomy History of total left knee replacement History of lumbar fusion Family History Other No significant family history Social History Smoking Status: Never smoker Do You Dip or Chew Tobacco: No; Hx Alcohol Use: Yes Hx Substance Use: No Preferred Language: Chinese Communication Ability: Effective Office Assistant Receptionist Required: No Beliefs That Will Affect Care: None marital status: Current Living Situation: Spouse and Other Current Living Situation Comment: SPOUSE AND DAUGHTER Feels Safe at Home: Yes Assistive Devices: Walker Allergies Allergies Allergy/AdvReac Type Severity Reaction Status Date / Time Sulfa (Sulfonamide Allergy Intermediate RASH Verified 07/02/24 22:16 Antibiotics) Home Meds Home Medications Medication Instructions Recorded Confirmed ascorbic acid (vitamin C) 500 mg 0 mg PO DAILY 07/02/24 07/02/24 tablet (Vitamin C) cholecalciferol (vitamin D3) 25 0 mcg PO DAILY 07/02/24 07/02/24 mcg (1,000 unit) capsule (Vitamin D3) cyanocobalamin (vitamin B-12) 0 mcg PO DAILY 07/02/24 07/02/24 1,000 mcg tablet (Vitamin B-12) magnesium 250 mg tablet 0 mg PO DAILY 07/02/24 07/02/24 morphine 15 mg immediate release 15 mg PO TID PRN Pain 07/02/24 07/02/24 tablet zinc sulfate 50 mg zinc (220 mg) 0 mg PO DAILY 07/02/24 07/02/24 tablet Results & Data (ED) Vital Signs Vital Signs - 24 hr 07/02/24 18:27 Temperature 36.5 C Temperature Source Oral Pulse Rate 83 Respiratory Rate 20 Respiratory Effort / Characteristics Non-Labored Respiratory Depth Normal Blood Pressure 153/89 H Blood Pressure Mean 110 Pulse Oximetry 96 Oxygen Delivery Method Room Air Sepsis Recent Fever Within 48 Hours No Sepsis New/Unexplained Change in Mental Status N/A Sepsis Action Taken by Nursing No Action Required Laboratory Data 07/02/24 18:57 07/02/24 18:57 Lab Results 07/02/24 07/02/24 07/02/24 Range/Units 18:57 20:45 Unknown WBC 7.40 (4.8-10.8) K/ul RBC 5.07 (4.20-5.40) M/uL Hgb 14.6 (12.0-16.0) g/dl Hct 45.9 (37.0-47.0) % MCV 90.5 (80.0-100.0) fL MCH 28.8 (25.0-34.0) pg MCHC 31.8 L (32.0-36.0) g/dL RDW Std Deviation 49.1 H (36.4-46.3) fL RDW Coeff of Abel 14.7 H (11.5-14.5) % Plt Count 237 (130-400) K/uL MPV 10.5 (9.4-12.4) fL Immature Gran % (Auto) 0.1 % Neut % (Auto) 70.2 % Lymph % (Auto) 21.8 % [place] % (Auto) 7.6 % Eos % (Auto) 0.0 % Baso % (Auto) 0.3 % Neut # (Auto) 5.20 (1.40-6.50) K/uL Lymph # (Auto) 1.61 (1.20-3.40) K/uL [place] # (Auto) 0.56 (0.11-0.59) K/uL Eos # (Auto) 0.00 (0.00-0.50) K/uL Baso # (Auto) 0.02 (0.00-0.20) K/uL Immature Gran # (Auto) 0.01 (0.01-0.20) K/uL Sodium 140 (136-145) mmol/L Potassium 3.8 (3.5-5.1) mmol/L Chloride 109 H (98-107) mmol/L Carbon Dioxide 22 (21-32) mmol/L Anion Gap 9 (3-11) BUN 9 (6-23) mg/dl Creatinine 0.50 L (0.6-1.2) mg/dl Est Cr Clr Drug Dosing 108.8 ml/min Est GFR ( Amer) 115.3 ml/min Est GFR (Non-Af Amer) 99.4 ml/min BUN/Creatinine Ratio 18.0 (10-20) Glucose 109 H (70-99(Fasting)) mg/dl Lactate 1.3 (0.4-2.0) mmol/L Calcium 9.6 (8.6-10.3) mg/dl Total Bilirubin 0.5 (0.2-1.0) mg/dl AST 16 (13-39) U/L ALT 11 (7-52) U/L Alkaline Phosphatase 74 (34-104) U/L Troponin I High Sens 3.5 (0-14) pg/ml Total Protein 7.2 (6.0-8.3) gm/dl Albumin 4.2 (3.4-5.0) gm/dl Globulin 3.0 (2.5-4.0) gm/dl Albumin/Globulin Ratio 1.4 (0.9-2) Lipase 39 (11-82) U/L HCG, Qual Negative (Negative) Urine Color Yellow Urine Appearance Clear (Clear) Urine pH 7.0 (4.5-7.5) Ur Specific [place] 1.014 (1.000-1.030) Urine Protein Negative (Negative) Urine Glucose (UA) Negative (Negative) Urine Ketones 2+ H (Negative) Urine Blood Negative (Negative) Urine Nitrite Negative (Negative) Urine Bilirubin Negative (Negative) Urine Urobilinogen Negative (Negative) Ur Leukocyte Esterase Negative (Negative) Administered Medications Discontinued Medications Sodium Chloride (Nss) 500 mls @ 999 mls/hr IV .Q31M STA Stop: 07/02/24 19:13 Last Infusion: 07/02/24 19:41 Dose: Infused Documented By: Admin: 07/02/24 18:55 Dose: 999 mls/hr Documented By: VERONICA Sodium Chloride (Nss) 1,000 mls @ 999 mls/hr IV .Q1H1M ONE Stop: 07/02/24 21:09 Last Infusion: 07/02/24 21:24 Dose: Infused Documented By: Admin: 07/02/24 20:22 Dose: 999 mls/hr Documented By: GOPAL Ioversol (Optiray 320 125ml) 118 ml IV ONCE ONE Stop: 07/02/24 20:31 Last Admin: 07/02/24 20:31 Dose: 118 ml Documented By: MIGEL Ketorolac Tromethamine (Ketorolac Tromethamine 15 Mg/Ml Vial) 15 mg IV ONE STA Stop: 07/02/24 18:44 Last Admin: 07/02/24 18:55 Dose: 15 mg Documented By: VERONICA Morphine Sulfate (Morphine Sulfate 4 Mg/Ml 1 Ml Carp\Vial) 4 mg IV NOW STA Stop: 07/02/24 20:10 Last Admin: 07/02/24 20:24 Dose: 4 mg Documented By: GOPAL Morphine Sulfate (Morphine Sulfate 4 Mg/Ml 1 Ml Carp\Vial) 4 mg IV NOW STA Stop: 07/02/24 21:38 Last Admin: 07/02/24 21:49 Dose: 4 mg Documented By: RAI Ondansetron HCl (Ondansetron Inj 2 Mg/Ml 2 Ml Vial) 4 mg IV NOW STA Stop: 07/02/24 18:44 Last Admin: 07/02/24 18:55 Dose: 4 mg Documented By: VERONICA Ondansetron HCl (Ondansetron Inj 2 Mg/Ml 2 Ml Vial) 4 mg IV NOW STA Stop: 07/02/24 20:10 Last Admin: 07/02/24 20:23 Dose: 4 mg Documented By: GOPAL Imaging Data Radiologist's Impression: Abdomen/Pelvis CT 07/02/24 20:09 Exam(s): CT ABDOMEN + PELVIS With Contrast IV Amt: 118ml optiray 320 EXAM: CT Abdomen and Pelvis With Intravenous Contrast CLINICAL HISTORY: Left Abdominal Pain. TECHNIQUE: Axial computed tomography images of the abdomen and pelvis with intravenous contrast. CTDI is 23.95 mGy and DLP is 1180.35 mGy-cm. Automated exposure control was utilized for the study. A dose lowering technique was utilized adhering to the principles of ALARA. CONTRAST: Patient received 118ml optiray 320 of IV contrast COMPARISON: CT abdomen and pelvis 12/08/2019 FINDINGS: Lung bases: Unremarkable. No mass. No consolidation. ABDOMEN: Liver: Unremarkable. No mass. Gallbladder and bile ducts: Cholecystectomy. Prominence of the common bile duct likely represents reservoir effect from the prior cholecystectomy. Pancreas: Unremarkable. No mass. No ductal dilation. Spleen: Unremarkable. No splenomegaly. Adrenals: Unremarkable. No mass. Kidneys and ureters: Unremarkable. No solid mass. No hydronephrosis. Stomach and bowel: There is mild prominence of the wall of the descending colon and sigmoid colon. Diverticulosis. No obstruction. No mucosal thickening. PELVIS: Appendix: No findings to suggest acute appendicitis. Bladder: Unremarkable. No mass. Reproductive: Unremarkable as visualized. ABDOMEN and PELVIS: Intraperitoneal space: Unremarkable. No free air. No significant fluid collection. Bones/joints: There are degenerative changes of the spine. No acute fracture. Bilateral hip prosthesis are noted. No dislocation. Intervertebral disc spacers at L4-L5 and L5-S1 with posterior screws and rods and laminectomies at L3-L5. Soft tissues: Unremarkable. Vasculature: Mild atherosclerosis. No abdominal aortic aneurysm. Lymph nodes: Unremarkable. No enlarged lymph nodes. IMPRESSION: 1. There is mild prominence of the wall of the descending colon and sigmoid colon. This could relate to nonspecific colitis. 2. Diverticulosis. Electronically signed by: Trang Taylor MD 07/02/24 21:34 PM Chest CTA 07/02/24 20:09 Exam(s): CTA CHEST IV Amt: 118ml optiray 320 EXAM: CT Angiography Chest With Intravenous Contrast CLINICAL HISTORY: Chest Pain TECHNIQUE: Axial computed tomographic angiography images of the chest with intravenous contrast. MIPS images were created and reviewed. CTDI is 17. 78 mGy and DLP is 552.01 mGy-cm. Automated exposure control was utilized for the study. A dose lowering technique was utilized adhering to the principles of ALARA. MIP reconstructed images were created and reviewed. COMPARISON: Chest radiograph 06/14/2019 FINDINGS: Pulmonary arteries: Unremarkable. No pulmonary embolus. Aorta: Mild atherosclerosis. No thoracic aortic aneurysm. Lungs: Unremarkable. No mass. No consolidation. Pleural space: Unremarkable. No significant effusion. No pneumothorax. Heart: Coronary artery calcifications are present. No cardiomegaly. No significant pericardial effusion. No evidence of RV dysfunction. Bones/joints: There are degenerative changes of the spine. No acute fracture. Soft tissues: Unremarkable. Lymph nodes: Unremarkable. No enlarged lymph nodes. IMPRESSION: No pulmonary embolus. No acute finding. Electronically signed by: Trang Taylor MD 07/02/24 21:50 PM Discharge Plan Visit Data Chief Complaint: Flank Pain Stated Complaint: LT FLANK PAIN ED Provider: Juan Cruz Discharge Problem: Colitis, Abdominal pain, LUQ Patient Disposition: Being Evaluated by Hospitalist Forms Stand Alone Forms: [facility] [place] Disrupt6 Prescriptions Prescriptions: No Action morphine 15 mg tablet 15 mg PO TID PRN (Reason: Pain) cyanocobalamin (vitamin B-12) [Vitamin B-12] 1,000 mcg Tablet 0 mcg PO DAILY Rx Instructions: PT UNSURE OF STRENGTH, UNABLE TO VERIFY zinc sulfate 50 mg zinc (220 mg) Tablet 0 mg PO DAILY Rx Instructions: PT UNSURE OF STRENGTH, UNABLE TO VERIFY ascorbic acid (vitamin C) [Vitamin C] 500 mg Tablet 0 mg PO DAILY Rx Instructions: PT UNSURE OF STRENGTH, UNABLE TO VERIFY magnesium 250 mg Tablet 0 mg PO DAILY Rx Instructions: PT UNSURE OF STRENGTH, UNABLE TO VERIFY cholecalciferol (vitamin D3) [Vitamin D3] 25 mcg (1,000 unit) Capsule 0 mcg PO DAILY Rx Instructions: PT UNSURE OF STRENGTH, UNABLE TO VERIFY Referrals Referrals: Guille Gallagher MD [Primary Care Provider] -
--- NOTE | 2024-07-02 21:35 | CT Scan Report ---
Exam(s): CT ABDOMEN + PELVIS With Contrast IV Amt: 118ml optiray 320 EXAM: CT Abdomen and Pelvis With Intravenous Contrast CLINICAL HISTORY: Left Abdominal Pain. TECHNIQUE: Axial computed tomography images of the abdomen and pelvis with intravenous contrast. CTDI is 23.95 mGy and DLP is 1180.35 mGy-cm. Automated exposure control was utilized for the study. A dose lowering technique was utilized adhering to the principles of ALARA. CONTRAST: Patient received 118ml optiray 320 of IV contrast COMPARISON: CT abdomen and pelvis 12/08/2019 FINDINGS: Lung bases: Unremarkable. No mass. No consolidation. ABDOMEN: Liver: Unremarkable. No mass. Gallbladder and bile ducts: Cholecystectomy. Prominence of the common bile duct likely represents reservoir effect from the prior cholecystectomy. Pancreas: Unremarkable. No mass. No ductal dilation. Spleen: Unremarkable. No splenomegaly. Adrenals: Unremarkable. No mass. Kidneys and ureters: Unremarkable. No solid mass. No hydronephrosis. Stomach and bowel: There is mild prominence of the wall of the descending colon and sigmoid colon. Diverticulosis. No obstruction. No mucosal thickening. PELVIS: Appendix: No findings to suggest acute appendicitis. Bladder: Unremarkable. No mass. Reproductive: Unremarkable as visualized. ABDOMEN and PELVIS: Intraperitoneal space: Unremarkable. No free air. No significant fluid collection. Bones/joints: There are degenerative changes of the spine. No acute fracture. Bilateral hip prosthesis are noted. No dislocation. Intervertebral disc spacers at L4-L5 and L5-S1 with posterior screws and rods and laminectomies at L3-L5. Soft tissues: Unremarkable. Vasculature: Mild atherosclerosis. No abdominal aortic aneurysm. Lymph nodes: Unremarkable. No enlarged lymph nodes. IMPRESSION: 1. There is mild prominence of the wall of the descending colon and sigmoid colon. This could relate to nonspecific colitis. 2. Diverticulosis. Electronically signed by: Trang Taylor MD 07/02/24 21:34 PM
--- NOTE | 2024-07-02 21:51 | CT Scan Report ---
Exam(s): CTA CHEST IV Amt: 118ml optiray 320 EXAM: CT Angiography Chest With Intravenous Contrast CLINICAL HISTORY: Chest Pain TECHNIQUE: Axial computed tomographic angiography images of the chest with intravenous contrast. MIPS images were created and reviewed. CTDI is 17. 78 mGy and DLP is 552.01 mGy-cm. Automated exposure control was utilized for the study. A dose lowering technique was utilized adhering to the principles of ALARA. MIP reconstructed images were created and reviewed. COMPARISON: Chest radiograph 06/14/2019 FINDINGS: Pulmonary arteries: Unremarkable. No pulmonary embolus. Aorta: Mild atherosclerosis. No thoracic aortic aneurysm. Lungs: Unremarkable. No mass. No consolidation. Pleural space: Unremarkable. No significant effusion. No pneumothorax. Heart: Coronary artery calcifications are present. No cardiomegaly. No significant pericardial effusion. No evidence of RV dysfunction. Bones/joints: There are degenerative changes of the spine. No acute fracture. Soft tissues: Unremarkable. Lymph nodes: Unremarkable. No enlarged lymph nodes. IMPRESSION: No pulmonary embolus. No acute finding. Electronically signed by: Trang Taylor MD 07/02/24 21:50 PM
--- NOTE | 2024-07-03 00:01 | History & Physical Report ---
Date of Service July 02, 2024 Assessment & Plan (1) Abdominal pain, LUQ: Plan: 68-year-old female with past medical history significant for hypothyroidism, hypertension, mitral prolapse, obesity, GERD, cervicalgia, s/p lumbar spinal fusion surgery, s/p hysterectomy comes because of left upper quadrant abdominal pain started around 4 PM today. Pain is severe in nature. Had couple of episodes of diarrhea. No blood in the stools. No outside food. No recent antibiotics. No fevers. Micturating okay. Denies any chest pain or shortness of breath. Appetite is okay. Has headache which is getting better. No blurred vision. No runny nose or sore throat. Patient states she was in [place] a few months back and had similar episode and she was in the ER there. And she was supposed to follow with GI but has not followed up. Abdominal pain left upper quadrant Nonspecific colitis on CT scan No PE on CTA chest Required significant pain medications Keep her n.p.o., IV fluids, pain control GI consult in a.m. for further recommendations Diarrhea No recent antibiotic use Will follow stool cultures Hypothyroidism Not on meds Will follow TSH Hypertension Not on meds Will monitor Lower extremity edema Will check echo Will check Doppler Doppler showing left lower extremity DVT-started on iv heparin. Abnormal EKG No chest pain or shortness of breath Will follow echo DVT prophylaxis iv heparin Disposition Medical floor Full code. History of Present Illness Chief Complaint: Abdominal pain Primary Care Provider: Guille Gallagher MD 68-year-old female with past medical history significant for hypothyroidism, hypertension, mitral prolapse, obesity, GERD, cervicalgia, s/p lumbar spinal fusion surgery, s/p hysterectomy comes because of left upper quadrant abdominal pain started around 4 PM today. Pain is severe in nature. Had couple of episodes of diarrhea. No blood in the stools. No outside food. No recent antibiotics. No fevers. Micturating okay. Denies any chest pain or shortness of breath. Appetite is okay. Has headache which is getting better. No blurred vision. No runny nose or sore throat. Patient states she was in [place] a few months back and had similar episode and she was in the ER there. And she was supposed to follow with GI but has not followed up. Past medical history. As mentioned above. Past surgical history. EGD. EGD with endoscopic ultrasound. Lumbosacral spine injection. Laparoscopic cholecystectomy. L3-5 decompression. Surgery on outside of left foot. Tonsillectomy/adenoidectomy. Repair of epigastric hernia. Repair of bladder neck. Total abdominal hysterectomy with removal of tubes. Social history. No smoking. No alcohol use, no drug use. Family history. Mother had diverticulitis. Heart disease. Sister has Crohn's. Brother had heart disorder at age of 42. Father had ID at age 60. Allergies Allergy/AdvReac Type Severity Reaction Status Date / Time Sulfa (Sulfonamide Allergy Intermediate RASH Verified 07/02/24 22:16 Antibiotics) Home Medications Medication Instructions Recorded Confirmed Type ascorbic acid (vitamin C) 500 mg 0 mg PO DAILY 07/02/24 07/02/24 History tablet (Vitamin C) cholecalciferol (vitamin D3) 25 0 mcg PO DAILY 07/02/24 07/02/24 History mcg (1,000 unit) capsule (Vitamin D3) cyanocobalamin (vitamin B-12) 0 mcg PO DAILY 07/02/24 07/02/24 History 1,000 mcg tablet (Vitamin B-12) magnesium 250 mg tablet 0 mg PO DAILY 07/02/24 07/02/24 History morphine 15 mg immediate release 15 mg PO TID PRN Pain 07/02/24 07/02/24 History tablet zinc sulfate 50 mg zinc (220 mg) 0 mg PO DAILY 07/02/24 07/02/24 History tablet Past Med/Surg History Problem List (Updated 07/02/24 @ 22:15 by Juan Cruz M.D.) Abdominal pain, LUQ (Acute) Colitis (Acute) Osteoarthritis of right knee Encounter for pre-operative examination Mitral valve prolapse (Chronic) Cholelithiasis Status post hysterectomy (Chronic) Status post lumbar surgery (Chronic) Status post tonsillectomy (Chronic) History of repair of hiatal hernia (Chronic) Acute calculous cholecystitis (Acute) Arthropathy of left shoulder (Chronic) Lumbar spinal stenosis (Chronic) Medical History (Updated 07/02/24 @ 22:15 by Juan Cruz M.D.) Hiatal hernia Back problem Mitral valve prolapse Hx MVP per patient (remotely diagnosed)- mild MR per 05/2018 [facility] Surgical History History of colonoscopy History of trigger finger RIGHT History of tonsillectomy History of laparoscopic cholecystectomy History of urologic surgery BLADDER REPAIR History of hysterectomy History of total left knee replacement History of lumbar fusion Family History Other No significant family history Social History Smoking Status: Never smoker Do You Dip or Chew Tobacco: No; Hx Alcohol Use: No Hx Substance Use: No Preferred Language: Romanian Communication Ability: Effective Package Crimper Required: No Beliefs That Will Affect Care: None marital status: Current Living Situation: Spouse Current Living Situation Comment: SPOUSE AND DAUGHTER Other Information That Helps Us Care for You: No Feels Safe at Home: Yes Safety Concerns: Feels Safe At This Time Assistive Devices: Cane Review of Systems Review of Systems: All systems reviewed & are unremarkable except as noted in HPI & below Physical Exam Physical Exam: General- Not in distress Head- atraumatic Eyes- PERRL. ENT- oropharynx clear Neck- supple, no JVD. Lungs- clear to auscultation no wheezing or crackles Heart- regular rhythm; no murmur, no gallop. Abdomen- normal bowel sounds, soft, tenderness in Left side of abdomen with mild guarding, no rigidity Extremities- b/l lower extremity chronic edema, no erythema seen Neuro- alert, oriented ; PERRL, no facial palsy; no dysarthria; moves extremities Results & Data Results & Data Vital Signs (Past 12 Hours) Vital Signs Temp Pulse Resp BP Pulse Ox O2 Del Method 07/02/24 18:27 36.5 C 83 20 153/89 H 96 Room Air Diagnostic Findings Laboratory Results WBC 7.40 K/ul (4.8-10.8) 07/02/24 18:57 RBC 5.07 M/uL (4.20-5.40) 07/02/24 18:57 Hgb 14.6 g/dl (12.0-16.0) 07/02/24 18:57 Hct 45.9 % (37.0-47.0) 07/02/24 18:57 MCV 90.5 fL (80.0-100.0) 07/02/24 18:57 MCH 28.8 pg (25.0-34.0) 07/02/24 18:57 MCHC 31.8 g/dL (32.0-36.0) L 07/02/24 18:57 RDW Std Deviation 49.1 fL (36.4-46.3) H 07/02/24 18:57 RDW Coeff of Abel 14.7 % (11.5-14.5) H 07/02/24 18:57 Plt Count 237 K/uL (130-400) 07/02/24 18:57 MPV 10.5 fL (9.4-12.4) 07/02/24 18:57 Immature Gran % (Auto) 0.1 % 07/02/24 18:57 Neut % (Auto) 70.2 % 07/02/24 18:57 Lymph % (Auto) 21.8 % 07/02/24 18:57 Jefferson % (Auto) 7.6 % 07/02/24 18:57 Eos % (Auto) 0.0 % 07/02/24 18:57 Baso % (Auto) 0.3 % 07/02/24 18:57 Neut # (Auto) 5.20 K/uL (1.40-6.50) 07/02/24 18:57 Lymph # (Auto) 1.61 K/uL (1.20-3.40) 07/02/24 18:57 Jefferson # (Auto) 0.56 K/uL (0.11-0.59) 07/02/24 18:57 Eos # (Auto) 0.00 K/uL (0.00-0.50) 07/02/24 18:57 Baso # (Auto) 0.02 K/uL (0.00-0.20) 07/02/24 18:57 Immature Gran # (Auto) 0.01 K/uL (0.01-0.20) 07/02/24 18:57 Sodium 140 mmol/L (136-145) 07/02/24 18:57 Potassium 3.8 mmol/L (3.5-5.1) 07/02/24 18:57 Chloride 109 mmol/L (98-107) H 07/02/24 18:57 Carbon Dioxide 22 mmol/L (21-32) 07/02/24 18:57 Anion Gap 9 (3-11) 07/02/24 18:57 BUN 9 mg/dl (6-23) 07/02/24 18:57 Creatinine 0.50 mg/dl (0.6-1.2) L 07/02/24 18:57 Est Cr Clr Drug Dosing 108.8 ml/min 07/02/24 18:57 Est GFR ( Amer) 115.3 ml/min 07/02/24 18:57 Est GFR (Non-Af Amer) 99.4 ml/min 07/02/24 18:57 BUN/Creatinine Ratio 18.0 (10-20) 07/02/24 18:57 Glucose 109 mg/dl (70-99(Fasting)) H 07/02/24 18:57 Lactate 1.3 mmol/L (0.4-2.0) 07/02/24 20:45 Calcium 9.6 mg/dl (8.6-10.3) 07/02/24 18:57 Total Bilirubin 0.5 mg/dl (0.2-1.0) 07/02/24 18:57 AST 16 U/L (13-39) 07/02/24 18:57 ALT 11 U/L (7-52) 07/02/24 18:57 Alkaline Phosphatase 74 U/L (34-104) 07/02/24 18:57 Troponin I High Sens 3.5 pg/ml (0-14) 07/02/24 18:57 Total Protein 7.2 gm/dl (6.0-8.3) 07/02/24 18:57 Albumin 4.2 gm/dl (3.4-5.0) 07/02/24 18:57 Globulin 3.0 gm/dl (2.5-4.0) 07/02/24 18:57 Albumin/Globulin Ratio 1.4 (0.9-2) 07/02/24 18:57 Lipase 39 U/L (11-82) 07/02/24 18:57 HCG, Qual Negative (Negative) 07/02/24 18:57 Urine Color Yellow 07/02/24 Unknown Urine Appearance Clear (Clear) 07/02/24 Unknown Urine pH 7.0 (4.5-7.5) 07/02/24 Unknown Ur Specific [place] 1.014 (1.000-1.030) 07/02/24 Unknown Urine Protein Negative (Negative) 07/02/24 Unknown Urine Glucose (UA) Negative (Negative) 07/02/24 Unknown Urine Ketones 2+ (Negative) H 07/02/24 Unknown Urine Blood Negative (Negative) 07/02/24 Unknown Urine Nitrite Negative (Negative) 07/02/24 Unknown Urine Bilirubin Negative (Negative) 07/02/24 Unknown Urine Urobilinogen Negative (Negative) 07/02/24 Unknown Ur Leukocyte Esterase Negative (Negative) 07/02/24 Unknown Impressions Abdomen/Pelvis CT 07/02/24 20:09 Exam(s): CT ABDOMEN + PELVIS With Contrast IV Amt: 118ml optiray 320 EXAM: CT Abdomen and Pelvis With Intravenous Contrast CLINICAL HISTORY: Left Abdominal Pain. TECHNIQUE: Axial computed tomography images of the abdomen and pelvis with intravenous contrast. CTDI is 23.95 mGy and DLP is 1180.35 mGy-cm. Automated exposure control was utilized for the study. A dose lowering technique was utilized adhering to the principles of ALARA. CONTRAST: Patient received 118ml optiray 320 of IV contrast COMPARISON: CT abdomen and pelvis 12/08/2019 FINDINGS: Lung bases: Unremarkable. No mass. No consolidation. ABDOMEN: Liver: Unremarkable. No mass. Gallbladder and bile ducts: Cholecystectomy. Prominence of the common bile duct likely represents reservoir effect from the prior cholecystectomy. Pancreas: Unremarkable. No mass. No ductal dilation. Spleen: Unremarkable. No splenomegaly. Adrenals: Unremarkable. No mass. Kidneys and ureters: Unremarkable. No solid mass. No hydronephrosis. Stomach and bowel: There is mild prominence of the wall of the descending colon and sigmoid colon. Diverticulosis. No obstruction. No mucosal thickening. PELVIS: Appendix: No findings to suggest acute appendicitis. Bladder: Unremarkable. No mass. Reproductive: Unremarkable as visualized. ABDOMEN and PELVIS: Intraperitoneal space: Unremarkable. No free air. No significant fluid collection. Bones/joints: There are degenerative changes of the spine. No acute fracture. Bilateral hip prosthesis are noted. No dislocation. Intervertebral disc spacers at L4-L5 and L5-S1 with posterior screws and rods and laminectomies at L3-L5. Soft tissues: Unremarkable. Vasculature: Mild atherosclerosis. No abdominal aortic aneurysm. Lymph nodes: Unremarkable. No enlarged lymph nodes. IMPRESSION: 1. There is mild prominence of the wall of the descending colon and sigmoid colon. This could relate to nonspecific colitis. 2. Diverticulosis. Electronically signed by: Trang Taylor MD 07/02/24 21:34 PM Chest CTA 07/02/24 20:09 Exam(s): CTA CHEST IV Amt: 118ml optiray 320 EXAM: CT Angiography Chest With Intravenous Contrast CLINICAL HISTORY: Chest Pain TECHNIQUE: Axial computed tomographic angiography images of the chest with intravenous contrast. MIPS images were created and reviewed. CTDI is 17. 78 mGy and DLP is 552.01 mGy-cm. Automated exposure control was utilized for the study. A dose lowering technique was utilized adhering to the principles of ALARA. MIP reconstructed images were created and reviewed. COMPARISON: Chest radiograph 06/14/2019 FINDINGS: Pulmonary arteries: Unremarkable. No pulmonary embolus. Aorta: Mild atherosclerosis. No thoracic aortic aneurysm. Lungs: Unremarkable. No mass. No consolidation. Pleural space: Unremarkable. No significant effusion. No pneumothorax. Heart: Coronary artery calcifications are present. No cardiomegaly. No significant pericardial effusion. No evidence of RV dysfunction. Bones/joints: There are degenerative changes of the spine. No acute fracture. Soft tissues: Unremarkable. Lymph nodes: Unremarkable. No enlarged lymph nodes. IMPRESSION: No pulmonary embolus. No acute finding. Electronically signed by: Trang Taylor MD 07/02/24 21:50 PM ECG Additional Comments: ECG. Sinus bradycardia rate of 58. Minimal criteria for anteroseptal infarct age indeterminant Code Status & VTE Plan VTE Prophylaxis Plan VTE Prophylaxis will be ordered: Yes
[2024-07-03] MEDS ORDERED: ONDANSETRON INJ 2 MG/ML 2 ML VIAL IV PRN (00:40)
[2024-07-03] MEDS: HYDROmorphone INJ 0.5 MG/0.5 ML SYR IV PRN (01:01)
[2024-07-03] MEDS: LACTATED RINGER'S 1,000 ML IV SCH (01:05)
--- NOTE | 2024-07-03 03:11 | Ultrasound Report ---
Exam(s): US VENOUS BILATERAL LOWER EXTREMITIES EXAM: US Duplex Bilateral Lower Extremities Veins CLINICAL HISTORY: Edema TECHNIQUE: Real-time duplex ultrasound scan of the bilateral lower extremity veins integrating B-mode two-dimensional vascular structure, Doppler spectral analysis, color flow Doppler imaging and compression. COMPARISON: No relevant prior studies available. FINDINGS: Right deep veins: Unremarkable. No Deep vein thrombosis in the right common femoral, femoral, proximal deep femoral or popliteal veins. The veins demonstrate normal color flow, are normally compressible, with normal phasic flow and/or augmentation response. Right superficial veins: Unremarkable. No thrombus in the visualized right great saphenous vein. Left deep veins: Occlusive deep vein thrombosis of the left peroneal vein. No Deep vein thrombosis in the left common femoral, femoral, proximal deep femoral or popliteal veins. Left superficial veins: Unremarkable. No thrombus in the visualized left great saphenous vein. Soft tissues: Mild nonspecific subcutaneous edema is noted bilaterally. No popliteal cyst. IMPRESSION: Occlusive deep vein thrombosis of the left peroneal vein. Communications: Call Doctor Above results Electronically signed by: Trang Taylor MD 07/03/24 03:10 AM
--- NOTE | 2024-07-03 06:40 | Electrocardiogram Report ---
Test Reason : Blood Pressure : / mmHG Vent. Rate : 058 BPM Atrial Rate : 058 BPM P-R Int : 160 ms QRS Dur : 086 ms QT Int : 450 ms P-R-T Axes : 060 -02 017 degrees QTc Int : 441 ms Sinus bradycardia Low voltage QRS Poor R wave progression, consider anterior SC vs. lead placement vs. LVH Incomplete right bundle branch block Abnormal ECG Confirmed by Daljit Aguirre ([id number]) on 07/03/2024 6:40:30 AM Referred By: REFERRED SELF Confirmed By:Nawaf Aguirre
[2024-07-03 06:41] LABS: Basophils # (auto) 0.02 K/uL (0.00-0.20); Basophils % (auto) 0.3 %; Eosinophils # (auto) 0.06 K/uL (0.00-0.50); Hematocrit (blood only) 40.8 % (37.0-47.0); Hemoglobin 13.4 g/dl (12.0-16.0); Immature Granulocytes # (auto) 0.02 K/uL (0.01-0.20); Immature Granulocytes % (auto) 0.3 %; Lymphocytes # (auto) 1.54 K/uL (1.20-3.40); Lymphocytes % (auto) 26.5 %; Mean Corpuscular Hemoglobin 29.6 pg (25.0-34.0); Mean Corpuscular Hgb Conc 32.8 g/dL (32.0-36.0); Mean Corpuscular Volume 90.1 fL (80.0-100.0); Mean Platelet Volume 10.7 fL (9.4-12.4); Monocytes # (auto) 0.41 K/uL (0.11-0.59); Neutrophils # (auto) 3.77 K/uL (1.40-6.50); Neutrophils % (auto) 64.9 %; Platelet Count 201 K/uL (130-400); RDW Coefficient of Variation 14.8 % (11.5-14.5); RDW Standard Deviation 49.4 fL (36.4-46.3); Red Blood Count 4.53 M/uL (4.20-5.40); White Blood Count 5.82 K/ul (4.8-10.8)
[2024-07-03 06:49] LABS: Calcium 8.4 mg/dl (8.6-10.3); Creatinine Clr Calc Pharmacy 108.9 ml/min; Est GFR (African American) 115.3 ml/min; Est GFR (Non-African American) 99.4 ml/min; Magnesium 2.2 mg/dl (1.7-2.4); Potassium 3.7 mmol/L (3.5-5.1)
[2024-07-03 07:00] LABS: Partial Thromboplastin Time 26 Seconds (21-31); Prothrombin Time 11.2 Seconds (9.0-12.0)
[2024-07-03 07:05] LABS: Thyroid Stimulating Hormone 2.307 uIu/ml (0.300-4.500)
[2024-07-03] MEDS: HEPARIN SODIUM/DEXTROSE 25,000 UNITS/500 ML BAG IV SCH (08:00)
[2024-07-03] MEDS: Heparin IV Adult Wt-Based Standard *NO* INITIAL Bolus Protocol IV STA (08:07)
[2024-07-03] MEDS: ENOXAPARIN INJ 40 MG/0.4 ML SYR SQ SCH (08:10)
[2024-07-03] MEDS: ACETAMINOPHEN 325 MG TAB PO PRN (08:12)
[2024-07-03] MEDS: oxyCODONE HCL IR 5 MG TAB (IMMEDIATE RELEASE) PO PRN (11:41)
--- NOTE | 2024-07-03 13:39 | Gastrointestinal Consultation ---
Date of Consultation July 03, 2024 Assessment & Plan (1) Abdominal pain, LUQ: Suspect ischemic vs diverticular vs less likely ibd or malignant. A bit atypical to have ischemic colitis twice in such a short timeframe without a trigger. Despite travel history, DVT presence does raise further concern for malignancy. (2) Colitis: (3) DVT (deep venous thrombosis): Plan - trial of clear liquid diet; ADAT - suggest 7-10 day course of abx with cipro/flagyl - hydration - pain control prn - no GI contraindication to AC - will need GI follow up and colonoscopy in 4-6 weeks History of Present Illness Reason for Consultation: left sided abdominal pain Attending Physician: Valencia Walls MD History of Present Illness 68 year old female from this area but now living in [place] with hypothyroidism, HTN, GERD, h/o CCY and hysterectomy with acute onset of left sided abdominal pain found to have descending and sigmoid colitis as well as a LLE DVT. Mrs Segovia was in [place] in March when she had a similar episode which landed her in the ER. She was treated conservatively and advised to follow up with GI. Her pain resolved and she has not followed up to date. She was in her usual state of good health yesterday but then had a couple of bouts on non-bloody diarrhea and the subsequent onset of severe left sided abdominal pain. She has had no further bowel movements. She presented to the ER where her WBC was 5.8, hct 40.8, creatinine 0.5. A CT of the abdomen was notable for mild prominence of the descending colon and sigmoid colon with diverticulosis. A LLE doppler was positive for DVT, CTA rule out PE. She is feeling a little better but still has pain. Allergies Allergy/AdvReac Type Severity Reaction Status Date / Time Sulfa (Sulfonamide Allergy Intermediate RASH Verified 07/02/24 22:16 Antibiotics) Home Medications Medication Instructions Recorded Confirmed Type ascorbic acid (vitamin C) 500 mg 0 mg PO DAILY 07/02/24 07/02/24 History tablet (Vitamin C) cholecalciferol (vitamin D3) 25 0 mcg PO DAILY 07/02/24 07/02/24 History mcg (1,000 unit) capsule (Vitamin D3) cyanocobalamin (vitamin B-12) 0 mcg PO DAILY 07/02/24 07/02/24 History 1,000 mcg tablet (Vitamin B-12) magnesium 250 mg tablet 0 mg PO DAILY 07/02/24 07/02/24 History morphine 15 mg immediate release 15 mg PO TID PRN Pain 07/02/24 07/02/24 History tablet zinc sulfate 50 mg zinc (220 mg) 0 mg PO DAILY 07/02/24 07/02/24 History tablet Patient History Medical History (Updated 07/03/24 @ 13:38 by Iman Cabrera MD) Hiatal hernia Back problem Mitral valve prolapse Hx MVP per patient (remotely diagnosed)- mild MR per 05/2018 [facility] Surgical History History of colonoscopy History of trigger finger RIGHT History of tonsillectomy History of laparoscopic cholecystectomy History of urologic surgery BLADDER REPAIR History of hysterectomy History of total left knee replacement History of lumbar fusion Family History Other No significant family history Social History Smoking Status: Never smoker Do You Dip or Chew Tobacco: No; Hx Alcohol Use: No Hx Substance Use: No Preferred Language: Algerian Communication Ability: Effective 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 Beliefs That Will Affect Care: None marital status: Current Living Situation: Spouse Current Living Situation Comment: SPOUSE AND DAUGHTER Other Information That Helps Us Care for You: No Feels Safe at Home: Yes Safety Concerns: Feels Safe At This Time Assistive Devices: Cane Review of Systems Review of Systems: All systems reviewed & are unremarkable except as noted in HPI & below Physical Exam Constitutional: WD/WN, vitals as above Eyes: PERRL, conjunctivae normal, anicteric sclerae Respiratory: normal respiratory effort, lungs clear to auscultation Cardiovascular: RRR, no murmur, no edema Chest (Breasts): normal inspection/palpation of breasts Gastrointestinal (Abdomen): Inspection/Auscultation: abdomen normal to inspection and normal bowel sounds Percussion/Palpation: + abdomen tender mild TTP LUQ and LLQ Musculoskeletal: scars from b/l knee surgeries well healed; mild b/l LLE Results & Data Vital Signs (Past 12 Hours) Vital Signs Temp Pulse Resp BP Pulse Ox O2 Del Method 07/03/24 07:26 36.8 C 71 143/76 H 18 L Room Air 07/03/24 03:17 36.6 C 70 18 147/78 H 96 Room Air Laboratory Results Laboratory Results - last 48 hr 07/02/24 07/02/24 07/02/24 18:57 20:45 Unknown WBC 7.40 RBC 5.07 Hgb 14.6 Hct 45.9 MCV 90.5 MCH 28.8 MCHC 31.8 L RDW Std Deviation 49.1 H RDW Coeff of Abel 14.7 H Plt Count 237 MPV 10.5 Immature Gran % (Auto) 0.1 Neut % (Auto) 70.2 Lymph % (Auto) 21.8 [place] % (Auto) 7.6 Eos % (Auto) 0.0 Baso % (Auto) 0.3 Neut # (Auto) 5.20 Lymph # (Auto) 1.61 [place] # (Auto) 0.56 Eos # (Auto) 0.00 Baso # (Auto) 0.02 Immature Gran # (Auto) 0.01 PT INR APTT PTT Ratio Sodium 140 Potassium 3.8 Chloride 109 H Carbon Dioxide 22 Anion Gap 9 BUN 9 Creatinine 0.50 L Est Cr Clr Drug Dosing 108.8 Est GFR ( Amer) 115.3 Est GFR (Non-Af Amer) 99.4 BUN/Creatinine Ratio 18.0 Glucose 109 H Lactate 1.3 Calcium 9.6 Magnesium Total Bilirubin 0.5 AST 16 ALT 11 Alkaline Phosphatase 74 Troponin I High Sens 3.5 Total Protein 7.2 Albumin 4.2 Globulin 3.0 Albumin/Globulin Ratio 1.4 Lipase 39 TSH HCG, Qual Negative Urine Color Yellow Urine Appearance Clear Urine pH 7.0 Ur Specific [place] 1.014 Urine Protein Negative Urine Glucose (UA) Negative Urine Ketones 2+ H Urine Blood Negative Urine Nitrite Negative Urine Bilirubin Negative Urine Urobilinogen Negative Ur Leukocyte Esterase Negative 07/03/24 06:12 WBC 5.82 RBC 4.53 Hgb 13.4 Hct 40.8 MCV 90.1 MCH 29.6 MCHC 32.8 RDW Std Deviation 49.4 H RDW Coeff of Abel 14.8 H Plt Count 201 MPV 10.7 Immature Gran % (Auto) 0.3 Neut % (Auto) 64.9 Lymph % (Auto) 26.5 [place] % (Auto) 7.0 Eos % (Auto) 1.0 Baso % (Auto) 0.3 Neut # (Auto) 3.77 Lymph # (Auto) 1.54 [place] # (Auto) 0.41 Eos # (Auto) 0.06 Baso # (Auto) 0.02 Immature Gran # (Auto) 0.02 PT 11.2 INR 1.0 APTT 26 PTT Ratio 1.0 Sodium 143 Potassium 3.7 Chloride 113 H Carbon Dioxide 23 Anion Gap 7 BUN 8 Creatinine 0.50 L Est Cr Clr Drug Dosing 108.9 Est GFR ( Amer) 115.3 Est GFR (Non-Af Amer) 99.4 BUN/Creatinine Ratio 16.0 Glucose 101 H Lactate Calcium 8.4 L Magnesium 2.2 Total Bilirubin AST ALT Alkaline Phosphatase Troponin I High Sens Total Protein Albumin Globulin Albumin/Globulin Ratio Lipase TSH 2.307 HCG, Qual Urine Color Urine Appearance Urine pH Ur Specific [place] Urine Protein Urine Glucose (UA) Urine Ketones Urine Blood Urine Nitrite Urine Bilirubin Urine Urobilinogen Ur Leukocyte Esterase Diagnostic Findings Abdomen/Pelvis CT 07/02/24 20:09 Exam(s): CT ABDOMEN + PELVIS With Contrast IV Amt: 118ml optiray 320 EXAM: CT Abdomen and Pelvis With Intravenous Contrast CLINICAL HISTORY: Left Abdominal Pain. TECHNIQUE: Axial computed tomography images of the abdomen and pelvis with intravenous contrast. CTDI is 23.95 mGy and DLP is 1180.35 mGy-cm. Automated exposure control was utilized for the study. A dose lowering technique was utilized adhering to the principles of ALARA. CONTRAST: Patient received 118ml optiray 320 of IV contrast COMPARISON: CT abdomen and pelvis 12/08/2019 FINDINGS: Lung bases: Unremarkable. No mass. No consolidation. ABDOMEN: Liver: Unremarkable. No mass. Gallbladder and bile ducts: Cholecystectomy. Prominence of the common bile duct likely represents reservoir effect from the prior cholecystectomy. Pancreas: Unremarkable. No mass. No ductal dilation. Spleen: Unremarkable. No splenomegaly. Adrenals: Unremarkable. No mass. Kidneys and ureters: Unremarkable. No solid mass. No hydronephrosis. Stomach and bowel: There is mild prominence of the wall of the descending colon and sigmoid colon. Diverticulosis. No obstruction. No mucosal thickening. PELVIS: Appendix: No findings to suggest acute appendicitis. Bladder: Unremarkable. No mass. Reproductive: Unremarkable as visualized. ABDOMEN and PELVIS: Intraperitoneal space: Unremarkable. No free air. No significant fluid collection. Bones/joints: There are degenerative changes of the spine. No acute fracture. Bilateral hip prosthesis are noted. No dislocation. Intervertebral disc spacers at L4-L5 and L5-S1 with posterior screws and rods and laminectomies at L3-L5. Soft tissues: Unremarkable. Vasculature: Mild atherosclerosis. No abdominal aortic aneurysm. Lymph nodes: Unremarkable. No enlarged lymph nodes. IMPRESSION: 1. There is mild prominence of the wall of the descending colon and sigmoid colon. This could relate to nonspecific colitis. 2. Diverticulosis. Electronically signed by: Trang Taylor MD 07/02/24 21:34 PM Chest CTA 07/02/24 20:09 Exam(s): CTA CHEST IV Amt: 118ml optiray 320 EXAM: CT Angiography Chest With Intravenous Contrast CLINICAL HISTORY: Chest Pain TECHNIQUE: Axial computed tomographic angiography images of the chest with intravenous contrast. MIPS images were created and reviewed. CTDI is 17. 78 mGy and DLP is 552.01 mGy-cm. Automated exposure control was utilized for the study. A dose lowering technique was utilized adhering to the principles of ALARA. MIP reconstructed images were created and reviewed. COMPARISON: Chest radiograph 06/14/2019 FINDINGS: Pulmonary arteries: Unremarkable. No pulmonary embolus. Aorta: Mild atherosclerosis. No thoracic aortic aneurysm. Lungs: Unremarkable. No mass. No consolidation. Pleural space: Unremarkable. No significant effusion. No pneumothorax. Heart: Coronary artery calcifications are present. No cardiomegaly. No significant pericardial effusion. No evidence of RV dysfunction. Bones/joints: There are degenerative changes of the spine. No acute fracture. Soft tissues: Unremarkable. Lymph nodes: Unremarkable. No enlarged lymph nodes. IMPRESSION: No pulmonary embolus. No acute finding. Electronically signed by: Trang Taylor MD 07/02/24 21:50 PM Venous Doppler Study 07/03/24 00:40 CR Exam(s): US VENOUS BILATERAL LOWER EXTREMITIES EXAM: US Duplex Bilateral Lower Extremities Veins CLINICAL HISTORY: Edema TECHNIQUE: Real-time duplex ultrasound scan of the bilateral lower extremity veins integrating B-mode two-dimensional vascular structure, Doppler spectral analysis, color flow Doppler imaging and compression. COMPARISON: No relevant prior studies available. FINDINGS: Right deep veins: Unremarkable. No Deep vein thrombosis in the right common femoral, femoral, proximal deep femoral or popliteal veins. The veins demonstrate normal color flow, are normally compressible, with normal phasic flow and/or augmentation response. Right superficial veins: Unremarkable. No thrombus in the visualized right great saphenous vein. Left deep veins: Occlusive deep vein thrombosis of the left peroneal vein. No Deep vein thrombosis in the left common femoral, femoral, proximal deep femoral or popliteal veins. Left superficial veins: Unremarkable. No thrombus in the visualized left great saphenous vein. Soft tissues: Mild nonspecific subcutaneous edema is noted bilaterally. No popliteal cyst. IMPRESSION: Occlusive deep vein thrombosis of the left peroneal vein. Communications: Call Doctor Above results Electronically signed by: Trang Taylor MD 07/03/24 03:10 AM PG Care Time/CCT Total # of Minutes Spent Total Time Spent with Patient: Total time spent is greater than 50% in coordination of care (as documented) at patient's floor/unit and/or counseling patient: Coding Level of Care Code 41832 IN/OBS CONSULT LVL 3,45M Diagnoses Abdominal pain, LUQ R10.12 Colitis K52.9 Acute deep vein thrombosis (DVT) of left peroneal vein I82.452 DVT location: lower extremity Affected thrombotic vein of extremity: peroneal Chronicity: acute Laterality: left (3) DVT (deep venous thrombosis) DVT location: lower extremity Affected thrombotic vein of extremity: peroneal Chronicity: acute Laterality: left Qualified Code(s): I82.452 - Acute embolism and thrombosis of left peroneal vein
--- NOTE | 2024-07-03 15:11 | Hospitalist Progress Note ---
Date of Service July 03, 2024 Assessment & Plan (1) Abdominal pain, LUQ: Plan: 68-year-old female with past medical history significant for hypothyroidism, hypertension, mitral prolapse, obesity, GERD, cervicalgia, s/p lumbar spinal fusion surgery, s/p hysterectomy comes because of left upper quadrant abdominal pain started around 4 PM. Pain is severe in nature, associated with a couple of episodes of nonbloody diarrhea. Patient reports they drove up from [place] 1 week ago She also reported h/o same abd pain in March 2024 and was supposed to follow up with GI Abdominal pain left upper quadrant Diarrhea Nonspecific colitis on CT scan No PE on CTA chest Continue IVF Trial of clears and advance diet as tolerated Optimize pain control Discussed with GI who recommends Abx Cipro and flagyl started Left Leg DVT Doppler showed occlusive Left peroneal DVT Currently on IV heparin drip Plan to switch to eliquis tonight Hypertension Not on meds Monitor Abnormal EKG EKG showed sinus ortega, poor R wave progression TTE showed EF 60-65%, mild conc LVH, normal chamber sizes, LV wall motion is normal, no valvular disease No Chest pain or shortness of breath Disposition Medical floor Full code I spent a total of 50 minutes coordinating, documenting and providing care for this patient excluding time spent in performance of separately billed services Admission and Anticipated Discharge Date Admission Date: July 02, 2024 Subjective Patient seen and examined Reports moderate to severe left sided abd pain Denied nausea, vomiting, diarrhea today Denied fever, chills Denied cough, chest pain, SOB, GARCIA Reports mild LLE pain Physical Exam Constitutional: + well hydrated; no acute distress Eyes: PERRL, conjunctivae normal, anicteric sclerae ENMT: external ear and nose normal, oropharynx normal Respiratory: normal respiratory effort, lungs clear to auscultation Cardiovascular: Rate/Rhythm: regular rate and regular rhythm Gastrointestinal (Abdomen): Soft, not distended, normal bowel sounds, +LUQ/LLQ tenderness Musculoskeletal: Left leg mildly tender Neurologic: PERRL, EOMI, accommodation nl, no face palsy, no dysarthria Psychiatric: A+Ox3, euthymic affect Results & Data Results & Data Vital Signs (Past 12 Hours) Vital Signs Temp Pulse Resp BP BP Pulse Ox O2 Del Method 07/03/24 14:54 37.0 C 64 17 121/84 97 Room Air 07/03/24 07:26 36.8 C 71 143/76 H 18 L Room Air 07/03/24 03:17 36.6 C 70 18 147/78 H 96 Room Air Laboratory Results Abnormal lab results 07/02/24 07/02/24 07/03/24 Range/Units 18:57 Unknown 06:12 MCHC 31.8 L (32.0-36.0) g/dL RDW Std Deviation 49.1 H 49.4 H (36.4-46.3) fL RDW Coeff of Abel 14.7 H 14.8 H (11.5-14.5) % Chloride 109 H 113 H (98-107) mmol/L Creatinine 0.50 L 0.50 L (0.6-1.2) mg/dl Glucose 109 H 101 H (70-99(Fasting)) mg/dl Calcium 8.4 L (8.6-10.3) mg/dl Urine Ketones 2+ H (Negative)
[2024-07-03 15:22] LABS: ANTI-Xa, UFH(UnfractionatedHep 0.47 IU/ml (0.3-0.7)
[2024-07-03] MEDS: metroNIDAZOLE 500 MG TAB PO SCH (16:05)
[2024-07-03] MEDS: CIPROFLOXACIN 500 MG TAB PO SCH (20:33)
[2024-07-03] MEDS: APIXABAN 5 MG TABLET PO SCH (20:34)
[2024-07-04 07:48] LABS: Hematocrit (blood only) 39.8 % (37.0-47.0); Mean Corpuscular Hemoglobin 29.3 pg (25.0-34.0); Mean Corpuscular Hgb Conc 32.7 g/dL (32.0-36.0); Mean Corpuscular Volume 89.8 fL (80.0-100.0); Mean Platelet Volume 10.3 fL (9.4-12.4); Platelet Count 179 K/uL (130-400); RDW Coefficient of Variation 14.6 % (11.5-14.5); RDW Standard Deviation 48.8 fL (36.4-46.3); Red Blood Count 4.43 M/uL (4.20-5.40); White Blood Count 4.24 K/ul (4.8-10.8)
[2024-07-04 07:59] LABS: BUN Creatinine Ratio 9.4 (10-20); Calcium 8.4 mg/dl (8.6-10.3); Creatinine Clr Calc Pharmacy 102.7 ml/min; Est GFR (African American) 113.1 ml/min; Est GFR (Non-African American) 97.6 ml/min; Potassium 3.6 mmol/L (3.5-5.1)
[2024-07-04 09:06] LABS: Adenovirus F 40/41 PCR Not Detected (NotDetected); Astrovirus PCR Not Detected (NotDetected); Campylobacter PCR Not Detected (NotDetected); Cryptosporidium PCR Not Detected (NotDetected); Cyclospora cayetanensis PCR Not Detected (NotDetected); Entamoeba histolytica PCR Not Detected (NotDetected); Enteroaggregative E.coli(EAEC) Not Detected (NotDetected); Enteropathogenic E.coli (EPEC) Not Detected (NotDetected); Enterotoxigenic E.coli (ETEC) Not Detected (NotDetected); Giardia lamblia PCR Not Detected (NotDetected); Norovirus GI/GII PCR Not Detected (NotDetected); Plesiomonas shigelloides PCR Not Detected (NotDetected); Rotavirus A PCR Not Detected (NotDetected); Salmonella PCR Not Detected (NotDetected); Sapovirus PCR Not Detected (NotDetected); Shiga-like Toxin E.coli (STEC) Not Detected (NotDetected); Shigella/Enteroinvasive E.coli Not Detected (NotDetected); Vibrio cholerae PCR Not Detected (NotDetected); Vibrio species PCR Not Detected (NotDetected); Yersinia enterocolitica PCR Not Detected (NotDetected)
[2024-07-04 09:27] LABS: ANTI-Xa, UFH(UnfractionatedHep 1.23 IU/ml (0.3-0.7)
--- NOTE | 2024-07-04 13:28 | History & Physical Bridge Note ---
Date of Service July 04, 2024 History & Physical Bridge Note Andrade was having lunch when I saw her. She is noting ongoing improvement in her abdominal pain and is quite pleased w her progress. She believes she may be discharged today. She again voiced understanding of the importance of follow up with GI to be arranged sharla post-discharge. As she plans to be seen in [place], she will be making the follow up appointment herself but if she changes her mind and would like to follow up locally, she can certainly be seen by the [facility] GI group.
--- NOTE | 2024-07-04 13:48 | Discharge Summary ---
Date of Service July 04, 2024 Admission HPI Per Admitting Provider 68-year-old female with past medical history significant for hypothyroidism, hypertension, mitral prolapse, obesity, GERD, cervicalgia, s/p lumbar spinal fusion surgery, s/p hysterectomy comes because of left upper quadrant abdominal pain started around 4 PM today. Pain is severe in nature. Had couple of episodes of diarrhea. No blood in the stools. No outside food. No recent antibiotics. No fevers. Micturating okay. Denies any chest pain or shortness of breath. Appetite is okay. Has headache which is getting better. No blurred vision. No runny nose or sore throat. Patient states she was in [place] a few months back and had similar episode and she was in the ER there. And she was supposed to follow with GI but has not followed up. Past medical history. As mentioned above. Past surgical history. EGD. EGD with endoscopic ultrasound. Lumbosacral spine injection. Laparoscopic cholecystectomy. L3-5 decompression. Surgery on outside of left foot. Tonsillectomy/adenoidectomy. Repair of epigastric hernia. Repair of bladder neck. Total abdominal hysterectomy with removal of tubes. Social history. No smoking. No alcohol use, no drug use. Family history. Mother had diverticulitis. Heart disease. Sister has Crohn's. Brother had heart disorder at age of 42. Father had SC at age 60. Admission Exam Per Admitting Provider General- Not in distress Head- atraumatic Eyes- PERRL. ENT- oropharynx clear Neck- supple, no JVD. Lungs- clear to auscultation no wheezing or crackles Heart- regular rhythm; no murmur, no gallop. Abdomen- normal bowel sounds, soft, tenderness in Left side of abdomen with mild guarding, no rigidity Extremities- b/l lower extremity chronic edema, no erythema seen Neuro- alert, oriented ; PERRL, no facial palsy; no dysarthria; moves extremities Principal Diagnosis Colitis Left leg deep venous thrombosis Discharge Exam Constitutional + well hydrated; no acute distress Eyes PERRL, conjunctivae normal, anicteric sclerae ENMT external ear and nose normal, oropharynx normal Respiratory normal respiratory effort, lungs clear to auscultation Cardiovascular Rate/Rhythm: regular rate and regular rhythm Gastrointestinal (Abdomen) Soft, mild LLQ tenderness, normal bowel sounds Musculoskeletal Trace left leg pedal edema Neurologic PERRL, EOMI, accommodation nl, no face palsy, no dysarthria Psychiatric A+Ox3, euthymic affect Discharge Data Allergies Allergy/AdvReac Type Severity Reaction Status Date / Time Sulfa (Sulfonamide Allergy Intermediate RASH Verified 07/02/24 22:16 Antibiotics) Consultations 07/02/24 22:16 ED Decision to Admit Stat 07/03/24 08:00 Consult Gastroenterology Routine Ordered Studies 07/02/24 20:09 CT abd pelvis IV con only Stat CT ABDOMEN + PELVIS With Contrast IV Amt: 118ml optiray 320 EXAM: CT Abdomen and Pelvis With Intravenous Contrast CLINICAL HISTORY: Left Abdominal Pain. TECHNIQUE: Axial computed tomography images of the abdomen and pelvis with intravenous contrast. CTDI is 23.95 mGy and DLP is 1180.35 mGy-cm. Automated exposure control was utilized for the study. A dose lowering technique was utilized adhering to the principles of ALARA. CONTRAST: Patient received 118ml optiray 320 of IV contrast COMPARISON: CT abdomen and pelvis 12/08/2019 FINDINGS: Lung bases: Unremarkable. No mass. No consolidation. ABDOMEN: Liver: Unremarkable. No mass. Gallbladder and bile ducts: Cholecystectomy. Prominence of the common bile duct likely represents reservoir effect from the prior cholecystectomy. Pancreas: Unremarkable. No mass. No ductal dilation. Spleen: Unremarkable. No splenomegaly. Adrenals: Unremarkable. No mass. Kidneys and ureters: Unremarkable. No solid mass. No hydronephrosis. Stomach and bowel: There is mild prominence of the wall of the descending colon and sigmoid colon. Diverticulosis. No obstruction. No mucosal thickening. PELVIS: Appendix: No findings to suggest acute appendicitis. Bladder: Unremarkable. No mass. Reproductive: Unremarkable as visualized. ABDOMEN and PELVIS: Intraperitoneal space: Unremarkable. No free air. No significant fluid collection. Bones/joints: There are degenerative changes of the spine. No acute fracture. Bilateral hip prosthesis are noted. No dislocation. Intervertebral disc spacers at L4-L5 and L5-S1 with posterior screws and rods and laminectomies at L3-L5. Soft tissues: Unremarkable. Vasculature: Mild atherosclerosis. No abdominal aortic aneurysm. Lymph nodes: Unremarkable. No enlarged lymph nodes. IMPRESSION: 1. There is mild prominence of the wall of the descending colon and sigmoid colon. This could relate to nonspecific colitis. 2. Diverticulosis. CT angio chest PE protocol Stat CT Angiography Chest With Intravenous Contrast CLINICAL HISTORY: Chest Pain TECHNIQUE: Axial computed tomographic angiography images of the chest with intravenous contrast. MIPS images were created and reviewed. CTDI is 17. 78 mGy and DLP is 552.01 mGy-cm. Automated exposure control was utilized for the study. A dose lowering technique was utilized adhering to the principles of ALARA. MIP reconstructed images were created and reviewed. COMPARISON: Chest radiograph 06/14/2019 FINDINGS: Pulmonary arteries: Unremarkable. No pulmonary embolus. Aorta: Mild atherosclerosis. No thoracic aortic aneurysm. Lungs: Unremarkable. No mass. No consolidation. Pleural space: Unremarkable. No significant effusion. No pneumothorax. Heart: Coronary artery calcifications are present. No cardiomegaly. No significant pericardial effusion. No evidence of RV dysfunction. Bones/joints: There are degenerative changes of the spine. No acute fracture. Soft tissues: Unremarkable. Lymph nodes: Unremarkable. No enlarged lymph nodes. IMPRESSION: No pulmonary embolus. No acute finding. 07/03/24 00:40 US venous doppler LE BI Stat Right deep veins: Unremarkable. No Deep vein thrombosis in the right common femoral, femoral, proximal deep femoral or popliteal veins. The veins demonstrate normal color flow, are normally compressible, with normal phasic flow and/or augmentation response. Right superficial veins: Unremarkable. No thrombus in the visualized right great saphenous vein. Left deep veins: Occlusive deep vein thrombosis of the left peroneal vein. No Deep vein thrombosis in the left common femoral, femoral, proximal deep femoral or popliteal veins. Left superficial veins: Unremarkable. No thrombus in the visualized left great saphenous vein. Soft tissues: Mild nonspecific subcutaneous edema is noted bilaterally. No popliteal cyst. IMPRESSION: Occlusive deep vein thrombosis of the left peroneal vein. Hospital Course (1) Abdominal pain, LUQ: 68-year-old female with past medical history significant for hypothyroidism, hypertension, mitral prolapse, obesity, GERD, cervicalgia, s/p lumbar spinal fusion surgery, s/p hysterectomy comes because of left upper quadrant abdominal pain started around 4 PM. Pain is severe in nature, associated with a couple of episodes of nonbloody diarrhea. Patient reports they drove up from [place] 1 week ago She also reported h/o same abd pain in March 2024 and was supposed to follow up with GI Abdominal pain, left sided Diarrhea Nonspecific colitis on CT scan No PE on CTA chest Stool PCR/C diff were negative Was treated with IVF, bowel rest and antibiotics Evaluated by GI Symptoms improved. Reports mild abd pain today Diet started and advanced. Tolerated low fiber diet Discharged on po ciprofloxacin and flagyl to complete treatment Patient need to follow up with GI. Needs to get Colonoscopy in 4-6 weeks Left Leg DVT Doppler showed occlusive Left peroneal DVT Initially started on heparin drip Switched to PO eliquis 10mg bid for first 7 days then 5mg BID afterwards Needs anticoagulation for 3-6 months Patient planning to go back to [place] where she lives Patient to follow up with her PCP Abnormal EKG EKG showed sinus ortega, poor R wave progression TTE showed EF 60-65%, mild conc LVH, normal chamber sizes, LV wall motion is normal, no valvular disease No Chest pain or shortness of breath Updated daughter at bedside Total Time Total Time Spent Total Time Spent (In Minutes): 45 Total Time Includes: Examination of the Patient, Discharge Planning, Medication Reconciliation and Other Discharge Plan Discharge Items Patient Disposition: Home - Self-Care Reason For Visit: ABDOMINAL PAIN Discharge Diagnosis: Colitis Left leg deep venous thrombosis Activity: Resume your previous activity Non-emergency contact: Primary Care Provider and Material Control Associate Call non-emergency contact if: you have any medication questions Follow-up/Referrals: Guille Gallagher MD [Primary Care Provider] - Diet: Regular Addtl Attending Provider Instructions: Mrs Segovia You came to the hospital for abdominal pain. You were evaluated and found to have colitis and left leg blood clot. You are being discharged on few more days of antibiotics. You were started on blood thinner called eliquis. You need to take 10mg of eliquis twice a day until morning of 07/10/24, then 5mg twice a day from evening of 07/10/24. You will be on blood thinner for 3-6 months as we discussed. It is very important that you follow up your Primary Doctor as well as Gastroenterology. You need to have Colonoscopy in 4-6 weeks. It was a pleasure taking care of you. Pending Studies at Discharge: No Stand-Alone Forms: [employer], Smoking Cessation Medications and DC Order Prescriptions: New metronidazole 500 mg Tablet 500 mg PO Q8H 5 Days Qty: 15 0RF ciprofloxacin HCl 500 mg Tablet 500 mg PO BID 5 Days Qty: 10 0RF Eliquis 5 mg Tablet See Rx Instructions .ROUTE .COMPLEX Qty: 72 0RF Rx Instructions: Take 10mg twice a day for next 6 days, then 5mg twice a day Continued morphine 15 mg tablet 15 mg PO TID PRN (Reason: Pain) cyanocobalamin (vitamin B-12) [Vitamin B-12] 1,000 mcg Tablet 0 mcg PO DAILY Rx Instructions: PT UNSURE OF STRENGTH, UNABLE TO VERIFY zinc sulfate 50 mg zinc (220 mg) Tablet 0 mg PO DAILY Rx Instructions: PT UNSURE OF STRENGTH, UNABLE TO VERIFY ascorbic acid (vitamin C) [Vitamin C] 500 mg Tablet 0 mg PO DAILY Rx Instructions: PT UNSURE OF STRENGTH, UNABLE TO VERIFY magnesium 250 mg Tablet 0 mg PO DAILY Rx Instructions: PT UNSURE OF STRENGTH, UNABLE TO VERIFY cholecalciferol (vitamin D3) [Vitamin D3] 25 mcg (1,000 unit) Capsule 0 mcg PO DAILY Rx Instructions: PT UNSURE OF STRENGTH, UNABLE TO VERIFY Discharge Orders: Discharge Order (Routine); Ordered 07/04/24 Ordered By: Valencia Nugent/Other Patient Handouts: Understanding Deep Vein Thrombosis, Abdominal Pain, Preventing Deep Vein Thrombosis Admission Data Admit Date/Time: 07/02/24 23:46 Attending Provider: Valencia Walls I. Admit Provider: Aleksey Valdes Primary Care Provider: Guille Gallagher Other Providers: Aleksey Valdes; Anthony Unger Other Interventions: Discharge Summary Assessment (RN) Last Done: 07/04/24 14:40
== END 2024-07-04 15:28 | disposition home or self-care (01) | DRG 392 ==
LOC: ED 18:17 → EDINP 23:46 → 3N 07-03 02:46